=== PATIENT | female | born 1965 | race Hispanic/Latino ===

== ENCOUNTER 2019-06-21 16:15 | Inpatient (IN) | payer SELFPAY ==
--- NOTE | 2019-06-21 16:59 | XRay Report ---
CHEST 2 VIEWS INDICATION / CLINICAL INFORMATION: Dyspnea. COMPARISON: None available. FINDINGS: SUPPORT DEVICES: None. HEART / MEDIASTINUM: No significant abnormality. LUNGS / PLEURA: There is moderate bibasilar lung consolidation most consistent with pneumonia. There may be a trace right effusion. Upper lungs are clear. No edema is seen. No pneumothorax. ADDITIONAL FINDINGS: There are healed left-sided rib fractures. IMPRESSION: 1. Moderate bibasilar lung consolidation. Signer Name: Edwardo Montero MD Signed: 06/21/2019 4:54 PM Workstation Name: [id number]
[2019-06-21 17:51] LABS: Basophils % (Auto) 0.4 % (0.0-1.8); Eosinophils # (Auto) 0.1 K/mm3 (0.0-0.4); Eosinophils % (Auto) 1.4 % (0.0-4.3); Hematocrit 39.2 % (30.3-42.9); Lymphocytes # (Auto) 0.7 K/mm3 (1.2-5.4); Lymphocytes % (Auto) 13.1 % (13.4-35.0); Mean Corpuscular HGB Conc 33 % (30-34); Mean Corpuscular Volume 87 fl (79-97); Monocytes # (Auto) 0.4 K/mm3 (0.0-0.8); Monocytes % (Auto) 7.4 % (0.0-7.3); Platelet Count 159 K/mm3 (140-440); Red Blood Count 4.52 M/mm3 (3.65-5.03); Red Cell Distribution Width 13.9 % (13.2-15.2)
[2019-06-21 18:05] LABS: BUN/Creatinine Ratio 10; Blood Urea Nitrogen 24 mg/dL (7-17); Calcium 8.7 mg/dL (8.4-10.2); Hemolysis Index 6
--- NOTE | 2019-06-21 20:21 | Emergency Department Report ---
ED General Adult HPI - General Chief complaint: Dyspnea/Respdistress Stated complaint: SOB/DIZZY Time Seen by Provider: 06/21/19 20:19 Source: patient, RN notes reviewed Mode of arrival: Ambulatory Limitations: No Limitations - History of Present Illness Initial comments: This is a 54-year-old female. This patient does not known to this provider previously. She reports that she typically follows at [facility]. Triage documents history of congestive heart failure, hepatitis C and COPD. Patient does not know her ejection fraction. She does not know the details of her other past medical history. Presents to the ER today with the complaints of shortness of breath, chest wall pain with coughing, malaise, fatigue, mucus production. Symptoms present for 2 days. They're intermittent. They worse with physical exertion, coughing, breathing, and decreased with rest. The patient denies DVT, pulmonary embolism risk factors. -: Gradual Location: chest Radiation: non-radiation Consistency: intermittent Improves with: other Worsens with: other Associated Symptoms: shortness of breath - Related Data Allergies Allergy/AdvReac Type Severity Reaction Status Date / Time No Known Allergies Allergy Verified 06/21/19 16:18 ED Review of Systems ROS: Stated complaint: SOB/DIZZY Other details as noted in HPI Constitutional: malaise, weakness Eyes: denies: eye discharge ENT: congestion Respiratory: cough, shortness of breath, SOB with exertion, SOB at rest, wheezing Cardiovascular: chest pain Gastrointestinal: denies: vomiting Genitourinary: denies: dysuria Musculoskeletal: myalgia Skin: denies: lesions Neurological: weakness Psychiatric: anxiety ED Past Medical Hx - Past Medical History Previous Medical History?: Yes Hx Congestive Heart Failure: Yes Additional medical history: hep c copd - Surgical History Past Surgical History?: No - Social History Smoking Status: Current Every Day Smoker Substance Use Type: None ED Physical Exam - General Limitations: No Limitations General appearance: alert, anxious - Head Head exam: Present: atraumatic, normocephalic - Eye Eye exam: Present: normal appearance, EOMI. Absent: nystagmus - ENT ENT exam: Present: normal exam, normal orophraynx, mucous membranes moist, normal external ear exam - Neck Neck exam: Present: normal inspection, full ROM. Absent: tenderness, meningismus - Respiratory Respiratory exam: Present: rhonchi. Absent: respiratory distress - Cardiovascular Cardiovascular Exam: Present: regular rate, normal rhythm, systolic murmur. Absent: bradycardia, tachycardia, irregular rhythm, diastolic murmur, rubs, gallop - GI/Abdominal GI/Abdominal exam: Present: soft. Absent: distended, tenderness, guarding, rebound, rigid, pulsatile mass - Extremities Exam Extremities exam: Present: normal inspection, full ROM, other (2+ pulses noted in the bilateral upper, lower extremities. There is no long bone tenderness. Musculoskeletal compartments are soft. The pelvis is stable.). Absent: pedal edema, joint swelling, calf tenderness - Back Exam Back exam: Present: normal inspection, full ROM. Absent: tenderness, CVA tenderness (R), CVA tenderness (L), paraspinal tenderness, vertebral tenderness - Neurological Exam Neurological exam: Present: alert, other (there is no facial droop. The tongue is midline. Extraocular movements are intact bilaterally. Patient speaking in full complete sentences. Shoulder shrug is intact bilaterally. Hearing is grossly intact bilaterally. Visual acuity intact to finger counting and color perception at a close distance. 5/5 strength 4 extremities. Sensation intact to light touch in 4 extremities.). Absent: motor sensory deficit - Psychiatric Psychiatric exam: Present: anxious - Skin Skin exam: Present: warm, dry, intact, normal color. Absent: rash ED Course Vital Signs 06/21/19 06/21/19 06/21/19 16:23 20:20 20:29 Temperature 99.4 F 98.7 F Pulse Rate 94 H 75 74 Respiratory 22 22 23 Rate Blood Pressure 197/106 Blood Pressure 183/102 [Left] O2 Sat by Pulse 93 93 94 Oximetry 06/21/19 06/21/19 06/21/19 20:30 21:00 21:30 Temperature Pulse Rate 77 67 Respiratory 23 19 23 Rate Blood Pressure 183/102 183/102 183/102 Blood Pressure [Left] O2 Sat by Pulse 91 89 90 Oximetry 06/21/19 06/21/19 21:46 22:00 Temperature Pulse Rate Respiratory Rate Blood Pressure 177/102 178/101 Blood Pressure [Left] O2 Sat by Pulse 93 98 Oximetry ED Medical Decision Making - Lab Data Result diagrams: 06/21/19 17:30 06/21/19 17:30 Vital Signs 06/21/19 16:23 Temperature 99.4 F Pulse Rate 94 H Respiratory 22 Rate Blood Pressure 197/106 O2 Sat by Pulse 93 Oximetry Lab Results 06/21/19 06/21/19 06/21/19 Range/Units 17:30 17:30 17:30 WBC 5.3 (4.5-11.0) K/mm3 RBC 4.52 (3.65-5.03) M/mm3 Hgb 13.0 (10.1-14.3) gm/dl Hct 39.2 (30.3-42.9) % MCV 87 (79-97) fl MCH 29 (28-32) pg MCHC 33 (30-34) % RDW 13.9 (13.2-15.2) % Plt Count 159 (140-440) K/mm3 Lymph % (Auto) 13.1 L (13.4-35.0) % [place] % (Auto) 7.4 H (0.0-7.3) % Eos % (Auto) 1.4 (0.0-4.3) % Baso % (Auto) 0.4 (0.0-1.8) % Lymph # 0.7 L (1.2-5.4) K/mm3 [place] # 0.4 (0.0-0.8) K/mm3 Eos # 0.1 (0.0-0.4) K/mm3 Baso # 0.0 (0.0-0.1) K/mm3 Seg Neutrophils % 77.7 H (40.0-70.0) % Seg Neutrophils # 4.1 (1.8-7.7) K/mm3 Sodium 139 (137-145) mmol/L Potassium 4.6 (3.6-5.0) mmol/L Chloride 102.7 (98-107) mmol/L Carbon Dioxide 23 (22-30) mmol/L Anion Gap 18 mmol/L BUN 24 H (7-17) mg/dL Creatinine 2.5 H (0.7-1.2) mg/dL Estimated GFR 20 ml/min BUN/Creatinine Ratio 10 % Glucose 115 H (65-100) mg/dL Calcium 8.7 (8.4-10.2) mg/dL Troponin T < 0.010 (0.00-0.029) ng/mL NT-Pro-B Natriuret Pep 10374 H (0-900) pg/mL - EKG Data 06/21/19 22:17 There is no prior EKG available for comparison. The EKG is a sinus rhythm, with a normal axis, QTC 482 ms, TX interval within normal limits, there is left ventricular hypertrophy, there is poor R progression, there is no prior for comparison, the EKG is abnormal, the EKG is not consistent with ST elevation myocardial infarction. - Radiology Data Radiology results: report reviewed, image reviewed Print Report Referring Physician: GABE GARCIA Patient Name: HILDA CARBALLO Date of : 1965 Sex: Female Report Date: 2019-06-21 Report Status: Finalized Findings [facility] [address] [place] [address] XRay Report Signed Patient: HILDA CARBALLO MR#: [id number] : 1965 Acct:[id number] Age/Sex: 54 / F ADM Date: 06/21/19 Loc: ED Attending Dr: Ordering Physician: GABE GARCIA MD Date of Service: 06/21/19 Procedure(s): XR chest routine 2V Accession Number(s): [id number] cc: GABE GARCIA MD Fluoro Time In Minutes: CHEST 2 VIEWS INDICATION / CLINICAL INFORMATION: Dyspnea. COMPARISON: None available. FINDINGS: SUPPORT DEVICES: None. HEART / MEDIASTINUM: No significant abnormality. LUNGS / PLEURA: There is moderate bibasilar lung consolidation most consistent with pneumonia. There may be a trace right effusion. Upper lungs are clear. No edema is seen. No pneumothorax. ADDITIONAL FINDINGS: There are healed left-sided rib fractures. IMPRESSION: 1. Moderate bibasilar lung consolidation. Signer Name: Edwardo Montero MD Signed: 06/21/2019 4:54 PM Workstation Name: [id number] Transcribed By: GEORGE Dictated By: Edwardo Montero MD Electronically Authenticated By: Edwardo Montero MD Signed Date/Time: 06/21/19 7779 - Medical Decision Making Differential diagnosis, including but not limited to: Pneumonia, bronchitis, costochondritis, acute coronary syndrome, renal insufficiency, cardiorenal syndrome Assessment and plan: 54-year-old female with probable pneumonia, found to have renal insufficiency, clinically does not appear to be fluid overloaded, elevated BNP is likely secondary to progressive pneumonia. Also has a low-grade temperature. We have recommended admission to the hospital for IV fluids, antibiotics and medication optimization. Discussed with the patient who verbalizes understanding and is amenable to hospitalization. Hospital physician, Dr. Valderrama to admit the patient to the medical service. Critical care attestation.: If time is entered above; I have spent that time in minutes in the direct care of this critically ill patient, excluding procedure time. ED Disposition Clinical Impression: Pneumonia, Renal insufficiency Disposition: OP ADMIT IP TO THIS HOSP Is pt being admited?: Yes Does the pt Need Aspirin: Yes Condition: Stable Instructions: Bacterial Pneumonia (ED)
[2019-06-21] MEDS ORDERED: PROVENTIL IH ONE (20:29)
[2019-06-21] MEDS ORDERED: ROCEPHIN/NS 1 GM/50 ML 1 GM/50 ML BAG IV ONE (20:29)
[2019-06-21] MEDS ORDERED: NACL 0.9% 1000 ML 500 ML IV ONE (20:29)
[2019-06-21] MEDS ORDERED: TYLENOL PO ONE (20:29)
[2019-06-21] MEDS ORDERED: ZITHROMAX PO ONE (20:30)
[2019-06-21] MEDS ORDERED: NORVASC PO ONE (20:31)
[2019-06-21] MEDS ORDERED: BABY ASPIRIN PO ONE (20:31)
[2019-06-21] MEDS ORDERED: ZOFRAN IV PRN (21:36)
[2019-06-21] MEDS ORDERED: SODIUM CHLORIDE FLUSH SYRINGE 10 ML IV PRN (21:36)
[2019-06-21] MEDS ORDERED: TYLENOL PO PRN (21:36)
--- NOTE | 2019-06-21 21:45 | History and Physical Report ---
History of Present Illness Date of examination: 06/21/19 History of present illness: 54-year-old woman with a history of CHF, COPD, hepatitis C, hypertension comes emergency room with complaints of shortness of breath, cough productive of yellow phlegm, chills 2 days. Stated that her chest. Only when she coughs. She states she is not on any diuretic because she does not need one. Denies history of kidney problems Review Of Systems: Constitutional: no weight loss, fever, chills Ears, eyes, nose, mouth and throat: no nasal congestion, no nasal discharge, no sinus pressure, blurry vision, diplopia Neck: No neck pain or rigidity. Cardiovascular: No palpitations, chest pain Respiratory: + shortness of breath, cough Gastrointestinal: No hematochezia, abdominal pain Genitourinary : no dysuria, frequency , hematuria Musculoskeletal: no muscle ache , joint pain Integumentary: no rash, no pruritis Neurological: no parathesias, focal weakness Endocrine: no cold or heat intolerance, no polyuria or polydipsia Hematologic/Lymphatic: no easy bruising, no easy bleeding, no gland swelling Allergic/Immunologic: no urticaria, no angioedema. PAST MEDICAL HISTORY:CHF, COPD, hepatitis C, hypertension PAST SURGICAL HISTORY:none FAMILY HISTORY:hypertension, diabetes SOCIAL HISTORY: Denies tobacco, drugs, alcohol Medications and Allergies Allergies Allergy/AdvReac Type Severity Reaction Status Date / Time No Known Allergies Allergy Verified 06/21/19 16:18 Active Meds: Active Medications Acetaminophen (Tylenol) 650 mg PO Q4H PRN PRN Reason: Pain MILD(1-3)/Fever >100.5/[place] Albuterol/Ipratropium (Duoneb *Not For Prn Use*) 1 ampul IH Q6HRT [facility] Enoxaparin Sodium (Lovenox) 30 mg SUB-Q QDAY [facility] Sodium Chloride (Nacl 0.45% 1000 Ml) 1,000 mls @ 50 mls/hr IV DIRECT [facility] Levofloxacin/Dextrose (Levaquin 750mg/150ml) 750 mg in 150 mls @ 100 mls/hr IV Q24HR [facility]; Protocol Ondansetron HCl (Zofran) 4 mg IV Q8H PRN PRN Reason: Nausea And Vomiting Sodium Chloride (Sodium Chloride Flush Syringe 10 Ml) 10 ml IV BID [facility] Sodium Chloride (Sodium Chloride Flush Syringe 10 Ml) 10 ml IV PRN PRN PRN Reason: LINE FLUSH Exam - Physical Exam Narrative exam: General Apperance: The patient sitting in bed no acute distress HEENT: Normocephalic, atraumatic. Pupils equally round and reactive to light, extraocular movement intact, and no sclericterus or JVD or thyromegaly or nodule. Neck supple, no carotid bruit, mucous membranes moist, no exudate or erythema Heart: S1-S2, regular is rhythm Lungs: Crackles at bases bilaterally, breathing comfortable Abdomen: Positive bowel sounds, soft, nontender, nondistended, no organomegaly Extremities: No edema cyanosis clubbing Skin: no rash, nodule, warm and dry Neuro:CN 2 -12 intact, motor/sensory intact, speech is fluent - Constitutional Vitals: Temp Pulse Resp BP Pulse Ox 98.7 F 67 23 183/102 90 06/21/19 20:20 06/21/19 21:00 06/21/19 21:30 06/21/19 21:30 06/21/19 21:30 Results - Labs CBC & Chem 7: 06/21/19 17:30 06/21/19 17:30 Labs: Abnormal lab results 06/21/19 06/21/19 06/21/19 Range/Units 17:30 17:30 17:30 Lymph % (Auto) 13.1 L (13.4-35.0) % [place] % (Auto) 7.4 H (0.0-7.3) % Lymph # 0.7 L (1.2-5.4) K/mm3 Seg Neutrophils % 77.7 H (40.0-70.0) % BUN 24 H (7-17) mg/dL Creatinine 2.5 H (0.7-1.2) mg/dL Glucose 115 H (65-100) mg/dL NT-Pro-B Natriuret Pep 67160 H (0-900) pg/mL - Imaging and Cardiology EKG: image reviewed Chest x-ray: report reviewed Assessment and Plan Assessment Community-acquired pneumonia Acute renal insufficiency Hypertension, uncontrolled CHF, stable COPD hepatitis C Plan Admit to medicine Start IV antibiotic, nebulizer treatments Start gentle IV fluid, monitor kidney function Continue appropriate outpatient medications IV hydralazine as needed for blood pressure control DVT prophylaxis, ultrasound of the kidneys
[2019-06-21] MEDS ORDERED: APRESOLINE IV PRN (21:47)
[2019-06-21 22:13] LABS: INR 0.95 (0.87-1.13)
[2019-06-22] MEDS: NACL 0.45% 1000 ML 1,000 ML IV SCH ×2 (00:17→11:28)
[2019-06-22] MEDS: SODIUM CHLORIDE FLUSH SYRINGE 10 ML IV SCH ×2 (00:28→23:18)
[2019-06-22 00:50] LABS: Creatinine,Urine 94.9 mg/dL (0.1-20.0)
[2019-06-22 00:51] LABS: Bilirubin,Urine NEG (Negative); Blood,Urine LG (Negative); Color,Urine Yellow (Yellow); Urobilinogen,Urine < 2.0 mg/dL (<2.0)
[2019-06-22 01:00] LABS: Protein,Urine >500 mg/dL (Negative); WBC,Urine > 182.0 /HPF (0.0-6.0)
[2019-06-22] MEDS: DUONEB *Not for PRN Use IH SCH ×4 (01:46→21:50)
[2019-06-22] MEDS: APRESOLINE IV PRN ×2 (05:56→12:37)
[2019-06-22] MEDS ORDERED: LEVAQUIN 750MG/150ML 750 MG/150 ML BAG IV SCH ×2 (10:00)
[2019-06-22] MEDS: LOVENOX SUB-Q SCH (11:29)
--- NOTE | 2019-06-22 11:48 | Ultrasound Report ---
ULTRASOUND RENAL INDICATION / CLINICAL INFORMATION: Acute renal failure. COMPARISON: None available. FINDINGS: RIGHT KIDNEY: Length = 11.0 cm. [normal > 9 cm] - Parenchymal Thickness = 0.7 cm. [normal > 1.5 cm] - Echogenicity: Increased - Hydronephrosis: None. - Cyst or mass: No significant abnormality. - Stones: A few scattered calyceal stones measuring up to 3 mm are identified. LEFT KIDNEY: Length = 10.5 cm. [normal > 9 cm] - Parenchymal Thickness = 0.6 cm. [normal > 1.5 cm] - Echogenicity: Increased - Hydronephrosis: Mild left hydronephrosis - Cyst or mass: No significant abnormality. - Stones: None seen. URINARY BLADDER: No significant abnormality. FREE FLUID: None. ADDITIONAL FINDINGS: None. IMPRESSION: Echogenic kidneys consistent with nonspecific renal parenchymal disease. Small right renal stones, nonobstructing. Mild left hydronephrosis. No obstructing lesion is appreciated. Signer Name: Tevin Pickett Jr, MD Signed: 06/22/2019 11:43 AM Workstation Name: [id number]
[2019-06-22] MEDS ORDERED: COREG PO SCH (16:00)
[2019-06-22] MEDS: APRESOLINE PO SCH ×2 (16:44→23:16)
[2019-06-22] MEDS: NORVASC PO SCH (16:44)
--- NOTE | 2019-06-22 17:34 | Progress Note ---
Assessment and Plan Community-acquired pneumonia Acute renal insufficiency vs SHIVANI on CKD UTI, cont abx Hypertension, uncontrolled CHF, stable COPD, stable hepatitis C Plan Start IV antibiotic, nebulizer treatments Start gentle IV fluid, monitor kidney function Continue appropriate outpatient medications IV hydralazine as needed for blood pressure control, resume home meds and adjust as needed DVT prophylaxis, ultrasound of the kidneys, nephrology consult Subjective Date of service: 06/22/19 Interval history: Patient seen and examined. Medical records and medication list reviewed. No acute event overnight noted by the RN. Patient resting on bed. Patient is tolerating diet. Discussed plan of care at bedside with patient. Objective - Constitutional Vitals: Vital Signs - 12hr 06/22/19 06/22/19 06/22/19 05:56 07:46 12:22 Temperature 99.0 F Pulse Rate 86 Pulse Rate [ 92 H Anterior] Respiratory 20 Rate Respiratory 18 Rate [Anterior] Blood Pressure 199/120 202/112 O2 Sat by Pulse 93 Oximetry 06/22/19 13:50 Temperature Pulse Rate Pulse Rate [ 93 H Anterior] Respiratory Rate Respiratory 18 Rate [Anterior] Blood Pressure O2 Sat by Pulse Oximetry General appearance: Present: no acute distress, well-nourished - EENT Eyes: PERRL, EOM intact ENT: hearing intact, clear oral mucosa Ears: bilateral: normal - Neck Neck: supple, normal ROM - Respiratory Respiratory effort: normal Respiratory: bilateral: CTA - Cardiovascular Rhythm: regular Heart Sounds: Present: S1 & S2. Absent: gallop, rub Extremities: pulses intact, No edema, normal color, Full ROM - Gastrointestinal General gastrointestinal: Present: soft, non-tender, non-distended, normal bowel sounds - Integumentary Integumentary: clear, warm, dry - Musculoskeletal Musculoskeletal: 1, strength equal bilaterally - Neurologic Neurologic: moves all extremities - Psychiatric Psychiatric: memory intact, appropriate mood/affect, intact judgment & insight - Labs CBC & Chem 7: 06/21/19 17:30 06/21/19 17:30 Labs: Abnormal lab results 06/21/19 06/21/19 06/21/19 Range/Units 00:15 00:15 17:30 Lymph % (Auto) 13.1 L (13.4-35.0) % [place] % (Auto) 7.4 H (0.0-7.3) % Lymph # 0.7 L (1.2-5.4) K/mm3 Seg Neutrophils % 77.7 H (40.0-70.0) % BUN (7-17) mg/dL Creatinine (0.7-1.2) mg/dL Glucose (65-100) mg/dL Total Creatine Kinase (30-135) units/L NT-Pro-B Natriuret Pep (0-900) pg/mL Urine WBC (Auto) > 182.0 H (0.0-6.0) /HPF Urine Creatinine 94.9 H (0.1-20.0) mg/dL 06/21/19 06/21/19 06/21/19 Range/Units 17:30 17:30 20:54 Lymph % (Auto) (13.4-35.0) % [place] % (Auto) (0.0-7.3) % Lymph # (1.2-5.4) K/mm3 Seg Neutrophils % (40.0-70.0) % BUN 24 H (7-17) mg/dL Creatinine 2.5 H (0.7-1.2) mg/dL Glucose 115 H (65-100) mg/dL Total Creatine Kinase 147 H (30-135) units/L NT-Pro-B Natriuret Pep 57462 H (0-900) pg/mL Urine WBC (Auto) (0.0-6.0) /HPF Urine Creatinine (0.1-20.0) mg/dL
[2019-06-23] MEDS: DUONEB *Not for PRN Use IH SCH ×2 (03:28→08:16)
[2019-06-23] MEDS: APRESOLINE PO SCH (06:14)
[2019-06-23] MEDS ORDERED: APRESOLINE PO SCH ×2 (09:02→14:00)
[2019-06-23] MEDS ORDERED: COREG PO SCH ×2 (09:02→10:00)
--- NOTE | 2019-06-23 10:23 | Consultation ---
History of Present Illness Consult date: 06/23/19 Consult reason: congestive heart failure History of present illness: This is a 54-year old female who presents with shortness of breath, coughs and wheezing, admitted with pneumonia, UTI and renal insufficiency. Initial labs revealed a creatinine of 2.5. It would be noted that the patients blood pressure has been consistently elevated since her admission with systolic BP ranging 170s-200. Patient is a poor historian but reports she usually receives care at [facility]. There are no records available for review. She denies chest pain, denies pal pitations and there is no lower extremity edema. ECG is sinus rhythm with LVH. No acute ischemic changes. Medications and Allergies Allergies Allergy/AdvReac Type Severity Reaction Status Date / Time No Known Allergies Allergy Verified 06/21/19 16:18 Home Medications Medication Instructions Recorded Confirmed Last Taken Type Aspirin EC [Halfprin EC] 81 mg PO QDAY #30 tablet. 06/23/19 Unknown Rx Carvedilol [Coreg] 12.5 mg PO BID #60 tablet 06/23/19 Unknown Rx amLODIPine [Norvasc] 10 mg PO QDAY #30 tablet 06/23/19 Unknown Rx hydrALAZINE [Apresoline TAB] 100 mg PO Q8HR #90 tab 06/23/19 Unknown Rx levoFLOXacin [Levaquin] 250 mg PO QDAY #5 tablet 06/23/19 Unknown Rx Active Meds: Active Medications Acetaminophen (Tylenol) 650 mg PO Q4H PRN PRN Reason: Pain MILD(1-3)/Fever >100.5/[place] Last Admin: 06/22/19 15:48 Dose: 650 mg Documented by: Albuterol/Ipratropium (Duoneb *Not For Prn Use*) 1 ampul IH Q6HRT [facility] Last Admin: 06/23/19 08:16 Dose: 1 ampul Documented by: Amlodipine Besylate (Norvasc) 10 mg PO QDAY [facility] Last Admin: 06/22/19 16:44 Dose: 10 mg Documented by: Carvedilol (Coreg) 12.5 mg PO BID [facility] Enoxaparin Sodium (Lovenox) 30 mg SUB-Q QDAY [facility] Last Admin: 06/22/19 11:29 Dose: 30 mg Documented by: Hydralazine HCl (Apresoline) 20 mg IV Q6H PRN PRN Reason: Hypertension Last Admin: 06/22/19 12:37 Dose: 20 mg Documented by: Hydralazine HCl (Apresoline) 100 mg PO Q8HR [facility] Sodium Chloride (Nacl 0.45% 1000 Ml) 1,000 mls @ 50 mls/hr IV DIRECT [facility] Last Admin: 06/22/19 11:28 Dose: 50 mls/hr Documented by: Levofloxacin/Dextrose (Levaquin 750mg/150ml) 750 mg in 150 mls @ 100 mls/hr IV Q48HR [facility]; Protocol Last Admin: 06/22/19 11:28 Dose: 100 mls/hr Documented by: Ondansetron HCl (Zofran) 4 mg IV Q8H PRN PRN Reason: Nausea And Vomiting Sodium Chloride (Sodium Chloride Flush Syringe 10 Ml) 10 ml IV BID [facility] Last Admin: 06/22/19 23:18 Dose: 10 ml Documented by: Sodium Chloride (Sodium Chloride Flush Syringe 10 Ml) 10 ml IV PRN PRN PRN Reason: LINE FLUSH Physical Examination Vital Signs Temp Pulse Resp BP Pulse Ox 99.4 F 94 H 22 197/106 93 06/21/19 16:23 06/21/19 16:23 06/21/19 16:23 06/21/19 16:23 06/21/19 16:23 General appearance: no acute distress HEENT: Positive: PERRL Cardiac: Positive: Reg Rate and Rhythm Lungs: Positive: Decreased Breath Sounds, Wheezes Results 06/21/19 17:30 06/21/19 17:30 Assessment and Plan Pneumonia Renal insufficiency UTI Hypertension -uncontrolled
--- NOTE | 2019-06-23 10:36 | Consultation ---
History of Present Illness - Reason for Consult Consult date: 06/23/19 acute renal failure - History of Present Illness The patient is a 54 YO female with history significant for Hypertension, CHF, COPD and Hepatitis C who presented to [facility] ED with complaints of shortness of breath, cough productive of yellow phlegm, chills 2 days. Patient refused to answer most of the questions. Unable to obtain any further history. Creatinine was 2.5 on admission. No prior labs available at this time. Nephrology was consulted for further evaluation. Past History Past Medical History: COPD, heart failure, hepatitis, hypertension Medications and Allergies Allergies Allergy/AdvReac Type Severity Reaction Status Date / Time No Known Allergies Allergy Verified 06/21/19 16:18 Home Medications Medication Instructions Recorded Confirmed Last Taken Type Aspirin EC [Halfprin EC] 81 mg PO QDAY #30 tablet. 06/23/19 Unknown Rx Carvedilol [Coreg] 12.5 mg PO BID #60 tablet 06/23/19 Unknown Rx amLODIPine [Norvasc] 10 mg PO QDAY #30 tablet 06/23/19 Unknown Rx hydrALAZINE [Apresoline TAB] 100 mg PO Q8HR #90 tab 06/23/19 Unknown Rx levoFLOXacin [Levaquin] 250 mg PO QDAY #5 tablet 06/23/19 Unknown Rx Active Meds: Active Medications Acetaminophen (Tylenol) 650 mg PO Q4H PRN PRN Reason: Pain MILD(1-3)/Fever >100.5/[place] Last Admin: 06/22/19 15:48 Dose: 650 mg Documented by: Albuterol/Ipratropium (Duoneb *Not For Prn Use*) 1 ampul IH Q6HRT [facility] Last Admin: 06/23/19 08:16 Dose: 1 ampul Documented by: Amlodipine Besylate (Norvasc) 10 mg PO QDAY [facility] Last Admin: 06/22/19 16:44 Dose: 10 mg Documented by: Carvedilol (Coreg) 12.5 mg PO BID [facility] Enoxaparin Sodium (Lovenox) 30 mg SUB-Q QDAY [facility] Last Admin: 06/22/19 11:29 Dose: 30 mg Documented by: Hydralazine HCl (Apresoline) 20 mg IV Q6H PRN PRN Reason: Hypertension Last Admin: 06/22/19 12:37 Dose: 20 mg Documented by: Hydralazine HCl (Apresoline) 100 mg PO Q8HR [facility] Sodium Chloride (Nacl 0.45% 1000 Ml) 1,000 mls @ 50 mls/hr IV DIRECT [facility] Last Admin: 06/22/19 11:28 Dose: 50 mls/hr Documented by: Levofloxacin/Dextrose (Levaquin 750mg/150ml) 750 mg in 150 mls @ 100 mls/hr IV Q48HR [facility]; Protocol Last Admin: 06/22/19 11:28 Dose: 100 mls/hr Documented by: Ondansetron HCl (Zofran) 4 mg IV Q8H PRN PRN Reason: Nausea And Vomiting Sodium Chloride (Sodium Chloride Flush Syringe 10 Ml) 10 ml IV BID [facility] Last Admin: 06/22/19 23:18 Dose: 10 ml Documented by: Sodium Chloride (Sodium Chloride Flush Syringe 10 Ml) 10 ml IV PRN PRN PRN Reason: LINE FLUSH Review of Systems ROS unobtainable: due to mental status (patient refused to answer) Exam - Vital Signs Vital signs: Vital Signs Temp Pulse Resp BP Pulse Ox 99.4 F 94 H 22 197/106 93 06/21/19 16:23 06/21/19 16:23 06/21/19 16:23 06/21/19 16:23 06/21/19 16:23 - General Appearance General appearance: well-developed, well-nourished, appears stated age, other (no distress) EENT: ATNC, PERRL, mucous membranes moist, hearing intact, vision intact Neck: Present: neck supple, trachea midline Respiratory: Clear to Ascultation Heart: regular, S1S2, no murmurs Gastrointestinal: Present: normoactive bowel sounds. Absent: tenderness, distended Integumentary: no rash, warm and dry Neurologic: no focal deficit, no asterixis, alert and oriented x3 Musculoskeletal: Present: other (no edema) Results - Lab Results 06/21/19 17:30 06/21/19 17:30 Most recent lab results Calcium 8.7 mg/dL (8.4-10.2) 06/21/19 17:30 Magnesium 2.20 mg/dL (1.7-2.3) 06/21/19 20:54 94.9 mg/dL (0.1-20.0) H 06/21/19 00:15 72 mmol/L 06/21/19 00:15 Assessment and Plan 1. Acute kidney injury / CKD: Patient presented with elevated creatinine level and no prior labs available. Patient refusing tests. Monitor renal function. Avoid nephrotoxic agents. Meds dosage based on GFR. 2. Uncontrolled HTN: Monitor BP. 3. Community-acquired pneumonia. 4. UTI. 5. CHF: Compensated. 6. COPD. 7. Hepatitis C.
--- NOTE | 2019-06-23 11:13 | Discharge Summary ---
Providers - Providers Date of Admission: 06/21/19 21:36 Date of discharge: 06/23/19 Attending physician: MORENA WHITEHEAD 06/23/19 09:03 Consult to Physician [CONS] Routine Comment: Consulting Provider: LESVIA MENCHACA Physician Instructions: Reason For Exam: CHF Consult to Physician [CONS] Routine Comment: Consulting Provider: RENE PATEL Physician Instructions: Reason For Exam: SHIVANI on CKD ? Primary care physician: [employer] Hospitalization Condition: Stable Pertinent studies: CXR Renal US Hospital course: Discharge diagnosis: Community-acquired pneumonia Acute renal insufficiency vs SHIVANI on CKD UTI, cont abx Hypertension, uncontrolled CHF, stable COPD, stable hepatitis C Disposition: - TO HOME OR SELFCARE Time spent for discharge: 34 minutes Core Measure Documentation - Palliative Care Palliative Care/ Comfort Measures: Not Applicable - Core Measures Any of the following diagnoses?: none Exam - Constitutional Vitals: Temp Pulse Resp BP Pulse Ox 99.3 F 81 18 176/93 96 06/23/19 05:09 06/23/19 08:18 06/23/19 08:18 06/23/19 06:14 06/23/19 08:16 Plan Activity: advance as tolerated Weight Bearing Status: Weight Bear as Tolerated Diet: renal Additional Instructions: repeat BMP in one week Follow up with: SHORTY MYERS MD [Primary Care Provider] - 3-5 Days RENE PATEL MD [Staff Physician] - 7 Days Prescriptions: hydrALAZINE [Apresoline TAB] 100 mg PO Q8HR #90 tab Carvedilol [Coreg] 12.5 mg PO BID #60 tablet Aspirin EC [Halfprin EC] 81 mg PO QDAY #30 tablet. levoFLOXacin [Levaquin] 250 mg PO QDAY #5 tablet amLODIPine [Norvasc] 10 mg PO QDAY #30 tablet
[2019-06-23 11:21] VITALS: BP 153/84
[2019-06-23] MEDS: SODIUM CHLORIDE FLUSH SYRINGE 10 ML IV SCH (12:36)
[2019-06-23] MEDS: LOVENOX SUB-Q SCH (12:38)
[2019-06-23] MEDS: NORVASC PO SCH (12:38)
== END 2019-06-23 13:00 | disposition home or self-care (01) | DRG 682 ==
LOC: ED 16:15 → 3A 21:36
PROVIDERS: ADMIT Internal Medicine; ATTEND Internal Medicine
DX: N17.9 Acute kidney failure, unspecified (principal); J18.9 Pneumonia, unspecified organism; N39.0 Urinary tract infection, site not specified; I13.0 Hypertensive heart and chronic kidney disease with heart failure and stage 1 through stage 4 chronic kidney disease, or unspecified chronic kidney disease; N18.9 Chronic kidney disease, unspecified; I50.9 Heart failure, unspecified; J44.9 Chronic obstructive pulmonary disease, unspecified; F17.200 Nicotine dependence, unspecified, uncomplicated; B19.20 Unspecified viral hepatitis C without hepatic coma; Z79.82 Long term (current) use of aspirin; Z79.899 Other long term (current) drug therapy; Z82.49 Family history of ischemic heart disease and other diseases of the circulatory system; Z83.3 Family history of diabetes mellitus
CPT/HCPCS: 36415; 71046; 76770; 80048; 81001; 82140; 82550; 82570; 83735; 83880; 84300; 84443; 84484; 85025; 85610; 87040; 87086; 93005; 93010; 94640; 94760; 96361; 96365; G0378; J0360; J0696; J1650; J1956; J7030

== ENCOUNTER 2019-12-30 06:20 | Emergency (ER) | payer SELFPAY ==
[2019-12-30 06:35] VITALS: BP 138/81
== END 2019-12-30 06:30 | disposition left against medical advice (07) ==
LOC: ED 06:20
DX: R11.2 Nausea with vomiting, unspecified (principal); Z53.21 Procedure and treatment not carried out due to patient leaving prior to being seen by health care provider

== ENCOUNTER 2020-02-11 12:12 | Inpatient (IN) | payer SELFPAY ==
[2020-02-11] MEDS ORDERED: ASPIRIN 325 MG TAB PO ONE (12:20)
--- NOTE | 2020-02-11 12:38 | Emergency Department Report ---
ED Chest Pain HPI - General Chief Complaint: Chest Pain Stated Complaint: CHEST PAIN, KATHERIN Time Seen by Provider: 02/11/20 12:35 Source: patient, EMS Mode of arrival: Wheelchair Limitations: No Limitations - History of Present Illness Initial Comments: This is a 54-year old female who persistently would like to attribute her current problems because she started back smoking 1 week ago. She is not wheezing nor acutely dyspneic. She tells me that she has had left-sided chest pain and left flank pain since yesterday. She states that she has been coughing for a week but denies hemoptysis. She gives very short answers and is very reticent to provide detailed. However, as far as I can determine the chest pain is nonpleuritic. She states that it hurts when you touch her anterior chest. She denies fever or chills. Patient states that she does not have a primary care doctor. However she denies noncompliance with her medication. She states that she has to pay alcantar to have her medications renewed. 2019 discharge summary: Hospital course: 54-year-old woman with a history of hypertension, presents with several days of shortness of breath and cough. In the emergency room, her systolic blood pressure was uncontrolled at greater than 190. Chest x-ray revealed mild cardiomegaly, modertaedbibasilar lung consolidation. BNP level was markedly elevated at 27,000. Other laboratory values include chronic kidney disease with a creatinine of 2.5. EKG was normal sinus rhythm, left ventricular hypertrophy but no acute ST or T-wave of months. She was started on abx, recommended to have 2decho. But she was refusing labwork and refusing further testing. She was then discharged home with abx for CAP and recommended to f/u outpt with office clinician. Discharge diagnosis: Community-acquired pneumonia Acute renal insufficiency vs SHIVANI on CKD UTI, cont abx Hypertension, uncontrolled CHF, stable COPD, stable hepatitis C Complaint: chest pain -: Sudden (States fairly acute onset last night), hour(s) Pain Location: left chest Pain Radiation: other (Also complains of left back pain/flank) Severity: moderate Quality: other (Would not describe) Consistency: constant Worsens With: nothing re: dyspnea. denies: nausea, vomting, diaphoresis, sense of impending doom Other Symptoms: cough. denies: fever, syncope, rash, acid taste in mouth, leg swelling Treatments Prior to Arrival: none Aspirin use within the Past 7 Days: (0) No - Related Data Home Medications Medication Instructions Recorded Confirmed Last Taken AtorvaSTATin 40 mg PO DAILY 02/11/20 02/11/20 Unknown Lasix TAB 40 mg PO DAILY 02/11/20 02/11/20 Unknown Lisinopril 2.5 mg PO DAILY 02/11/20 02/11/20 Unknown amLODIPine 5 mg PO QDAY 02/11/20 02/11/20 Unknown Previous Rx's Medication Instructions Recorded Last Taken Type Aspirin EC [Halfprin EC] 81 mg PO QDAY #30 tablet. 06/23/19 Unknown Rx carvediloL [Coreg] 12.5 mg PO BID #60 tablet 06/23/19 Unknown Rx hydrALAZINE [Apresoline TAB] 100 mg PO Q8HR #90 tab 06/23/19 Unknown Rx Allergies Allergy/AdvReac Type Severity Reaction Status Date / Time No Known Allergies Allergy Verified 06/21/19 16:18 Heart Score - HEART Score History: Slightly suspicious EKG: Non-specific Age: 45-65 Risk factors: 1-2 risk factors Troponin: < normal limit HEART Score: 3 - Critical Actions Critical Actions: 0-3 pts:0.9-1.7%risk of adverse cardiac event.Candidate for discharge ED Review of Systems ROS: Stated complaint: CHEST PAIN, KATHERIN Other details as noted in HPI Constitutional: denies: chills, fever Eyes: denies: eye pain, eye discharge, vision change ENT: denies: ear pain, throat pain Respiratory: cough, shortness of breath. denies: wheezing Cardiovascular: chest pain. denies: palpitations Endocrine: no symptoms reported Gastrointestinal: denies: abdominal pain, nausea, diarrhea Genitourinary: denies: urgency, dysuria, discharge Musculoskeletal: denies: back pain, arthralgia Skin: denies: rash, lesions Neurological: denies: headache, weakness, paresthesias Psychiatric: denies: anxiety, depression Hematological/Lymphatic: denies: easy bleeding, easy bruising ED Past Medical Hx - Past Medical History Previous Medical History?: Yes Hx Congestive Heart Failure: Yes Hx Diabetes: No Hx Asthma: No Hx COPD: Yes Additional medical history: hep c copd - Surgical History Past Surgical History?: Yes Additional Surgical History: kidney stones - Social History Smoking Status: Current Every Day Smoker Substance Use Type: Prescribed - Medications Home Medications: Home Medications Medication Instructions Recorded Confirmed Last Taken Type Aspirin EC [Halfprin EC] 81 mg PO QDAY #30 tablet. 06/23/19 02/11/20 Unknown Rx carvediloL [Coreg] 12.5 mg PO BID #60 tablet 06/23/19 02/11/20 Unknown Rx hydrALAZINE [Apresoline TAB] 100 mg PO Q8HR #90 tab 06/23/19 02/11/20 Unknown Rx AtorvaSTATin 40 mg PO DAILY 02/11/20 02/11/20 Unknown History Lasix TAB 40 mg PO DAILY 02/11/20 02/11/20 Unknown History Lisinopril 2.5 mg PO DAILY 02/11/20 02/11/20 Unknown History amLODIPine 5 mg PO QDAY 02/11/20 02/11/20 Unknown History ED Physical Exam - General Limitations: No Limitations General appearance: alert, in no apparent distress, other (Somewhat pale) - Head Head exam: Present: atraumatic, normocephalic - Eye Eye exam: Present: normal appearance. Absent: scleral icterus - ENT ENT exam: Present: mucous membranes moist - Neck Neck exam: Present: normal inspection. Absent: tenderness, meningismus - Respiratory Respiratory exam: Present: normal lung sounds bilaterally, chest wall tenderness. Absent: respiratory distress - Cardiovascular Cardiovascular Exam: Present: regular rate, normal rhythm. Absent: systolic murmur, diastolic murmur, rubs, gallop - GI/Abdominal GI/Abdominal exam: Present: soft, normal bowel sounds. Absent: distended, tenderness, guarding, rebound - Extremities Exam Extremities exam: Present: normal inspection, full ROM. Absent: tenderness, pedal edema, joint swelling, calf tenderness - Back Exam Back exam: Present: normal inspection - Neurological Exam Neurological exam: Present: alert, oriented X3 - Psychiatric Psychiatric exam: Present: normal affect, normal mood - Skin Skin exam: Present: warm, dry, intact, normal color. Absent: rash ED Course Vital Signs 02/11/20 12:16 Temperature 98.3 F Pulse Rate 64 Respiratory 18 Rate Blood Pressure 106/59 O2 Sat by Pulse 93 Oximetry - Reevaluation(s) Reevaluation #1: Patient is found to have a new left pleural effusion, acute renal injury. A CT of her chest abdomen and pelvis without contrast is pending. A VQ scan will be pending. Patient meets criteria for inpatient admission and further evaluation. 02/11/20 13:40 02/11/20 15:[address] reports. V/Q is pending. D-dimer is quite elevated. I have discussed with Dr. Guerin. We will admit to telemetry. Dr. Guerin is aware to follow-up on pending results. ELZBIETA score - Elzbieta Score Age > 65: (0) No Aspirin use within the Past 7 Days: (0) No 3 or more CAD Risk Factors: (0) No 2 or more Angina events in past 24 hrs: (0) No Known CAD with more than 50% Stenosis: (0) No Elevated Cardiac Markers: (0) No ST Deviation Greater than 0.5mm: (0) No ELZBIETA Score: 0 ED Medical Decision Making - Lab Data Result diagrams: 02/11/20 12:55 02/11/20 12:55 Laboratory Results - last 24 hr 02/11/20 12:55 WBC 5.0 RBC 3.28 L Hgb 9.4 L Hct 28.8 L MCV 88 MCH 29 MCHC 33 RDW 14.5 Plt Count 146 Lymph % (Auto) 12.7 L [place] % (Auto) 10.4 H Eos % (Auto) 0.6 Baso % (Auto) 0.5 Lymph # 0.6 L [place] # 0.5 Eos # 0.0 Baso # 0.0 Seg Neutrophils % 75.8 H Seg Neutrophils # 3.8 Laboratory Results - last 24 hr 02/11/20 02/11/20 02/11/20 12:55 12:55 12:55 WBC 5.0 RBC 3.28 L Hgb 9.4 L Hct 28.8 L MCV 88 MCH 29 MCHC 33 RDW 14.5 Plt Count 146 Lymph % (Auto) 12.7 L [place] % (Auto) 10.4 H Eos % (Auto) 0.6 Baso % (Auto) 0.5 Lymph # 0.6 L [place] # 0.5 Eos # 0.0 Baso # 0.0 Seg Neutrophils % 75.8 H Seg Neutrophils # 3.8 PT 14.9 INR 1.15 H APTT 24.7 Sodium 135 L Potassium 4.5 Chloride 101.3 Carbon Dioxide 19 L Anion Gap 19 BUN 71 H Creatinine 4.8 H Estimated GFR 9 BUN/Creatinine Ratio 15 Glucose 116 H Lactic Acid Calcium 7.7 L Total Creatine Kinase CK-MB (CK-2) CK-MB (CK-2) Rel Index 02/11/20 02/11/20 12:55 12:55 WBC RBC Hgb Hct MCV MCH MCHC RDW Plt Count Lymph % (Auto) Marathon % (Auto) Eos % (Auto) Baso % (Auto) Lymph # Marathon # Eos # Baso # Seg Neutrophils % Seg Neutrophils # PT INR APTT Sodium Potassium Chloride Carbon Dioxide Anion Gap BUN Creatinine Estimated GFR BUN/Creatinine Ratio Glucose Lactic Acid 0.60 L Calcium Total Creatine Kinase 66 CK-MB (CK-2) 1.0 CK-MB (CK-2) Rel Index 1.5 - EKG Data -: EKG Interpreted by Me EKG shows normal: sinus rhythm, axis, intervals, QRS complexes (High voltage), ST-T waves Rate: normal - EKG Data Interpretation: LVH (Consistent with LVH, left axis deviation, left atrial abnormality, associated changes.) - Radiology Data Radiology results: report reviewed New left pleural effusion, cardiomegaly Critical care attestation.: If time is entered above; I have spent that time in minutes in the direct care of this critically ill patient, excluding procedure time. ED Disposition Clinical Impression: Acute kidney injury, Pleural effusion, left Acute on chronic renal failure Qualifiers: Acute renal failure type: unspecified Chronic kidney disease stage: stage 4 (severe) Qualified Code(s): N17.9 - Acute kidney failure, unspecified; N18.4 - Chronic kidney disease, stage 4 (severe) Cardiomyopathy Qualifiers: Cardiomyopathy type: unspecified Qualified Code(s): I42.9 - Cardiomyopathy, unspecified Chest pain Qualifiers: Chest pain type: unspecified Qualified Code(s): R07.9 - Chest pain, unspecified Anemia Qualifiers: Anemia type: other cause Other causes of anemia: other cause, not classified Qualified Code(s): D64.89 - Other specified anemias Disposition: OP ADMIT IP TO THIS HOSP Is pt being admited?: Yes Does the pt Need Aspirin: Yes Condition: Stable Instructions: Chest Pain (ED) Time of Disposition: 15:12
--- NOTE | 2020-02-11 12:54 | XRay Report ---
CHEST 2 VIEWS INDICATION / CLINICAL INFORMATION: Chest Pain. COMPARISON: Chest x-ray 06/21/2019 FINDINGS: SUPPORT DEVICES: None. HEART / MEDIASTINUM: Remains enlarged. LUNGS / PLEURA: New moderate left pleural effusion. No pneumothorax. ADDITIONAL FINDINGS: Old healed left rib fracture deformities, unchanged IMPRESSION: 1. Cardiomegaly with new moderate left pleural effusion Signer Name: Enrike Lockett MD Signed: 02/11/2020 12:50 PM Workstation Name: [id number]
[2020-02-11 13:11] LABS: Basophils % (Auto) 0.5 % (0.0-1.8); Eosinophils % (Auto) 0.6 % (0.0-4.3); Hematocrit 28.8 % (30.3-42.9); Hemoglobin 9.4 gm/dl (10.1-14.3); Lymphocytes # (Auto) 0.6 K/mm3 (1.2-5.4); Lymphocytes % (Auto) 12.7 % (13.4-35.0); Mean Corpuscular HGB Conc 33 % (30-34); Mean Corpuscular Volume 88 fl (79-97); Monocytes # (Auto) 0.5 K/mm3 (0.0-0.8); Monocytes % (Auto) 10.4 % (0.0-7.3); Platelet Count 146 K/mm3 (140-440); Red Blood Count 3.28 M/mm3 (3.65-5.03); Red Cell Distribution Width 14.5 % (13.2-15.2)
[2020-02-11 13:25] LABS: INR 1.15 (0.87-1.13)
[2020-02-11 13:26] LABS: Partial Thromboplastin Time 24.7 Sec. (24.2-36.6)
[2020-02-11 13:30] LABS: Calcium 7.7 mg/dL (8.4-10.2)
[2020-02-11 13:33] LABS: Alanine Aminotransferase 28 units/L (7-56); Albumin 2.7 g/dL (3.9-5)
[2020-02-11 13:41] LABS: Bilirubin,Direct < 0.2 mg/dL (0-0.2)
--- NOTE | 2020-02-11 15:12 | Cat Scan Report ---
CT chest wo con, CT abdomen pelvis wo con INDICATION / CLINICAL INFORMATION: MAIN: peural effusion, cp x1day. TECHNIQUE: All CT scans at this location are performed using CT dose reduction for ALARA by means of automated e xposure control. COMPARISON: None available. FINDINGS: Chest: Heart is enlarged. A small pericardial effusion is present. Small mediastinal lymph nodes are identified. The largest measures 7 mm in short axis dimension. A small left and minimal right pleural effusion is identified. Interstitial prominence is seen at both lung bases but no airspace consolidation or pulmonary nodular ity is identified. ABDOMEN: There is a very large gallstone. Gallbladder wall is slightly thickened and there is pericholecystic fluid. No biliary ductal dilatation. Borderline hepatosplenomegaly. The pancreas and adrenal glands are normal. Right nephrolithiasis. No ureteral calculi. Small retroperitoneal lymph nodes are identified, ranging in size up to 1 cm in short axis dimension. No small bowel distention. Pelvis: The appendix is normal. Sigmoid diverticulosis. No dependent fluid collections or acute inflammatory changes are seen in the pelvis. No inguinal or pelvic adenopathy. There are mild degenerative changes seen at the L4-5 and L5 1 disc levels. No destructive bony abnorm alities. IMPRESSION: 1. Cholelithiasis with gallbladder wall thickening and pericholecystic fluid collection. 2. Pericardial effusion and small bilateral pleural effusions. 3. Mild basilar interstitial opacity could be acute or chronic. 4. Small mediastinal and retroperitoneal lymph nodes with borderline hepatosplenomegaly. 5. Right nephrolithiasis. Signer Name: Antwon Medrano MD Signed: 02/11/2020 3:08 PM Workstation Name: [id number]
--- NOTE | 2020-02-11 16:01 | Nuclear Medicine Report ---
NM perfusion only lung scan INDICATION / CLINICAL INFORMATION: chest pain. TECHNIQUE: Dose / Agent / Route: 5mCi technetium 99m MAA IV COMPARISON: PA and lateral chest x-ray 02/11/2020 FINDINGS: No segmental or subsegmental perfusion defects. Photon deficient region in the left lower hemithorax is due to the demonstrated pleural effusion. IMPRESSION: 1. No pulmonary perfusion defects. Signer Name: Antwon Medrano MD Signed: 02/11/2020 3:56 PM Workstation Name: [id number]
[2020-02-11 18:36] LABS: Bilirubin,Urine NEG (Negative); Blood,Urine SM (Negative); Color,Urine Yellow (Yellow); Urobilinogen,Urine < 2.0 mg/dL (<2.0)
[2020-02-11 18:40] LABS: Amphetamine Screen,Urine PRESUMPTIVE NEGATIVE; Benzodiazepines Screen,Urine PRESUMPTIVE NEGATIVE; Cannabinoid Screen,Urine PRESUMPTIVE NEGATIVE; Methadone Screen,Urine PRESUMPTIVE NEGATIVE; Opiate Screen,Urine PRESUMPTIVE NEGATIVE
[2020-02-11 19:00] LABS: Cocaine Screen,Urine PRESUMPTIVE POSITIVE
[2020-02-11] MEDS ORDERED: ACETAMINOPHEN 325 MG TAB PO PRN (22:33)
[2020-02-11] MEDS ORDERED: HYDROmorphone 1 MG/1 ML INJ IV PRN (22:33)
[2020-02-11] MEDS ORDERED: ONDANSETRON 4 MG/2 ML INJ IV PRN (22:33)
--- NOTE | 2020-02-11 22:39 | History and Physical Report ---
History of Present Illness Date of examination: 02/11/20 Date of admission: 02/11/20 15:14 Chief complaint: Chest pain for 1 week History of present illness: 54-year old female comes in for left-sided chest pain and left flank pain since yesterday. She states that she has been coughing for a week but denies hemoptysis. Chest pain is retrosternal.No diaphoresis or palpitations.No radiation.Not exacerbated by exertion or relieved by rest.No recent travel. Her creatine was 24/2.5 on last admissionn. No exposure to kevin virus. Smoking heavily. 2019 discharge summary --06/23/19 Hospital course: Discharge diagnosis: Community-acquired pneumonia Acute renal insufficiency vs SHIVANI on CKD ---Cr 2.5 UTI, cont abx Hypertension, uncontrolled CHF, stable COPD, stable hepatitis C - Past Medical History Previous Medical History?: Yes Congestive Heart Failure: Yes COPD: Yes Additional medical history: hep c copd - Surgical History Past Surgical History?: Yes Additional Surgical History: kidney stones - Social History Smoking Status: Current Every Day Smoker Substance Use Type: Prescribed - Medications Home Medications: Home Medications Medication Instructions Recorded Confirmed Last Taken Type Aspirin EC [Halfprin EC] 81 mg PO QDAY #30 tablet. 06/23/19 02/11/20 Unknown Rx carvediloL [Coreg] 12.5 mg PO BID #60 tablet 06/23/19 02/11/20 Unknown Rx hydrALAZINE [Apresoline TAB] 100 mg PO Q8HR #90 tab 06/23/19 02/11/20 Unknown Rx AtorvaSTATin 40 mg PO DAILY 02/11/20 02/11/20 Unknown History Lasix TAB 40 mg PO DAILY 02/11/20 02/11/20 Unknown History Lisinopril 2.5 mg PO DAILY 02/11/20 02/11/20 Unknown History amLODIPine 5 mg PO QDAY 02/11/20 02/11/20 Unknown History Review of Systems ROS: Stated complaint: CHEST PAIN, KATHERIN Other details as noted in HPI Constitutional: denies: chills, fever Eyes: denies: eye pain, eye discharge, vision change ENT: denies: ear pain, throat pain Respiratory: cough, shortness of breath. denies: wheezing Cardiovascular: chest pain. denies: palpitations Endocrine: no symptoms reported Gastrointestinal: denies: abdominal pain, nausea, diarrhea Genitourinary: denies: urgency, dysuria, discharge Musculoskeletal: denies: back pain, arthralgia Skin: denies: rash, lesions Neurological: denies: headache, weakness, paresthesias Psychiatric: denies: anxiety, depression Hematological/Lymphatic: denies: easy bleeding, easy bruising Medications and Allergies Allergies Allergy/AdvReac Type Severity Reaction Status Date / Time No Known Allergies Allergy Verified 06/21/19 16:18 Home Medications Medication Instructions Recorded Confirmed Last Taken Type Aspirin EC [Halfprin EC] 81 mg PO QDAY #30 tablet.dr 06/23/19 02/11/20 Unknown Rx carvediloL [Coreg] 12.5 mg PO BID #60 tablet 06/23/19 02/11/20 Unknown Rx hydrALAZINE [Apresoline TAB] 100 mg PO Q8HR #90 tab 06/23/19 02/11/20 Unknown Rx AtorvaSTATin 40 mg PO DAILY 02/11/20 02/11/20 Unknown History Lasix TAB 40 mg PO DAILY 02/11/20 02/11/20 Unknown History Lisinopril 2.5 mg PO DAILY 02/11/20 02/11/20 Unknown History amLODIPine 5 mg PO QDAY 02/11/20 02/11/20 Unknown History Active Meds: Active Medications Amlodipine Besylate (Amlodipine) 5 mg PO QDAY [facility] Aspirin (Halfprin Ec) 81 mg PO QDAY [facility] Atorvastatin Calcium (Lipitor) 40 mg PO DAILY [facility] Carvedilol (Coreg) 12.5 mg PO BID [facility] Furosemide (Lasix) 40 mg PO DAILY [facility] Hydralazine HCl (Apresoline) 100 mg PO Q8HR [facility] Miscellaneous Medication (Lisinopril) 2.5 mg PO DAILY [facility] Exam - Constitutional Vitals: Temp Pulse Resp BP Pulse Ox 98.0 F 70 18 112/59 88 02/11/20 19:19 02/11/20 19:19 02/11/20 19:19 02/11/20 19:19 02/11/20 19:19 General appearance: Present: no acute distress, well-nourished - EENT Eyes: Present: PERRL ENT: hearing intact, clear oral mucosa - Neck Neck: Present: supple, normal ROM - Respiratory Respiratory effort: normal Respiratory: bilateral: CTA - Cardiovascular Heart rate: 65 Rhythm: regular Heart Sounds: Present: S1 & S2. Absent: rub, click - Extremities Extremities: no ischemia, pulses symmetrical, No edema Peripheral Pulses: within normal limits - Abdominal General gastrointestinal: Present: soft, non-tender, non-distended, normal bowel sounds Female genitourinary: Present: normal - Rectal Rectal Exam: deferred - Integumentary Integumentary: Present: clear, warm, dry - Musculoskeletal Musculoskeletal: gait normal, strength equal bilaterally - Psychiatric Psychiatric: appropriate mood/affect, intact judgment & insight - Neurologic Neurologic: CNII-XII intact, moves all extremities UBALDO score - Ubaldo Score Age > 65: (0) No Aspirin use within the Past 7 Days: (0) No 3 or more CAD Risk Factors: (1) Yes 2 or more Angina events in past 24 hrs: (0) No Known CAD with more than 50% Stenosis: (0) No Elevated Cardiac Markers: (0) No ST Deviation Greater than 0.5mm: (0) No UBALDO Score: 1 Results - Labs CBC & Chem 7: 02/12/20 06:46 02/12/20 06:46 Labs: Laboratory Last Values WBC 5.0 K/mm3 (4.5-11.0) 02/11/20 12:55 RBC 3.28 M/mm3 (3.65-5.03) L 02/11/20 12:55 Hgb 9.4 gm/dl (10.1-14.3) L 02/11/20 12:55 Hct 28.8 % (30.3-42.9) L 02/11/20 12:55 MCV 88 fl (79-97) 02/11/20 12:55 MCH 29 pg (28-32) 02/11/20 12:55 MCHC 33 % (30-34) 02/11/20 12:55 RDW 14.5 % (13.2-15.2) 02/11/20 12:55 Plt Count 146 K/mm3 (140-440) 02/11/20 12:55 Lymph % (Auto) 12.7 % (13.4-35.0) L 02/11/20 12:55 [place] % (Auto) 10.4 % (0.0-7.3) H 02/11/20 12:55 Eos % (Auto) 0.6 % (0.0-4.3) 02/11/20 12:55 Baso % (Auto) 0.5 % (0.0-1.8) 02/11/20 12:55 Lymph # 0.6 K/mm3 (1.2-5.4) L 02/11/20 12:55 [place] # 0.5 K/mm3 (0.0-0.8) 02/11/20 12:55 Eos # 0.0 K/mm3 (0.0-0.4) 02/11/20 12:55 Baso # 0.0 K/mm3 (0.0-0.1) 02/11/20 12:55 Seg Neutrophils % 75.8 % (40.0-70.0) H 02/11/20 12:55 Seg Neutrophils # 3.8 K/mm3 (1.8-7.7) 02/11/20 12:55 PT 14.9 Sec. (12.2-14.9) 02/11/20 12: INR 1.15 (0.87-1.13) H 02/11/20 12:55 APTT 24.7 Sec. (24.2-36.6) 02/11/20 12:55 D-Dimer 3035.67 ng/mlDDU (0-234) H 02/11/20 12:55 Sodium 135 mmol/L (137-145) L 02/11/20 12:55 Potassium 4.5 mmol/L (3.6-5.0) 02/11/20 12:55 Chloride 101.3 mmol/L (98-107) 02/11/20 12:55 Carbon Dioxide 19 mmol/L (22-30) L 02/11/20 12:55 Anion Gap 19 mmol/L 02/11/20 12:55 BUN 71 mg/dL (7-17) H 02/11/20 12:55 Creatinine 4.8 mg/dL (0.7-1.2) H 02/11/20 12:55 Estimated GFR 9 ml/min 02/11/20 12:55 BUN/Creatinine Ratio 15 % 02/11/20 12: Glucose 116 mg/dL (65-100) H 02/11/20 12:55 Lactic Acid 0.60 mmol/L (0.7-2.0) L 02/11/20 12:55 Calcium 7.7 mg/dL (8.4-10.2) L 02/11/20 12:55 Magnesium 2.40 mg/dL (1.7-2.3) H 02/11/20 12:55 Total Bilirubin 0.30 mg/dL (0.1-1.2) 02/11/20 12:55 Direct Bilirubin < 0.2 mg/dL (0-0.2) 02/11/20 12:55 AST 38 units/L (5-40) 02/11/20 12:55 ALT 28 units/L (7-56) 02/11/20 12:55 Alkaline Phosphatase 92 units/L (35-129) 02/11/20 12:55 Total Creatine Kinase 66 units/L (30-135) 02/11/20 12:55 CK-MB (CK-2) 1.0 ng/mL (0.0-4.0) 02/11/20 12: CK-MB (CK-2) Rel Index 1.5 (0-4) 02/11/20 12:55 Troponin T 0.027 ng/mL (0.00-0.029) 02/11/20 19:10 NT-Pro-B Natriuret Pep 97291 pg/mL (0-900) H 02/11/20 12:55 Total Protein 6.4 g/dL (6.3-8.2) 02/11/20 12:55 Albumin 2.7 g/dL (3.9-5) L 02/11/20 12:55 Albumin/Globulin Ratio 0.7 % 02/11/20 12:55 Triglycerides 96 mg/dL (2-149) 02/11/20 12:55 Cholesterol 105 mg/dL (50-199) 02/11/20 12:55 LDL Cholesterol Direct 59 mg/dL (50-130) 02/11/20 12:55 HDL Cholesterol 35 mg/dL (40-59) L 02/11/20 12:55 Cholesterol/HDL Ratio 3.00 % 02/11/20 12:55 Urine Color Yellow (Yellow) 02/11/20 Unknown Urine Turbidity Clear (Clear) 02/11/20 Unknown Urine pH 5.0 (5.0-7.0) 02/11/20 Unknown Ur Specific [place] 1.010 (1.003-1.030) 02/11/20 Unknown Urine Protein 30 mg/dl mg/dL (Negative) 02/11/20 Unknown Urine Glucose (UA) Neg mg/dL (Negative) 02/11/20 Unknown Urine Ketones Neg mg/dL (Negative) 02/11/20 Unknown Urine Blood Sm (Negative) 02/11/20 Unknown Urine Nitrite Neg (Negative) 02/11/20 Unknown Urine Bilirubin Neg (Negative) 02/11/20 Unknown Urine Urobilinogen < 2.0 mg/dL (<2.0) 02/11/20 Unknown Ur Leukocyte Esterase Tr (Negative) 02/11/20 Unknown Urine WBC (Auto) 3.0 /HPF (0.0-6.0) 02/11/20 Unknown Urine RBC (Auto) 2.0 /HPF (0.0-6.0) 02/11/20 Unknown U Epithel Cells (Auto) 4.0 /HPF (0-13.0) 02/11/20 Unknown Urine Opiates Screen Presumptive negative 02/11/20 Unknown Urine Methadone Screen Presumptive negative 02/11/20 Unknown Ur Barbiturates Screen Presumptive negative 02/11/20 Unknown Ur Phencyclidine Scrn Presumptive negative 02/11/20 Unknown Ur Amphetamines Screen Presumptive negative 02/11/20 Unknown U Benzodiazepines Scrn Presumptive negative 02/11/20 Unknown Urine Cocaine Screen Presumptive positive 02/11/20 Unknown U Marijuana (THC) Screen Presumptive negative 02/11/20 Unknown Drugs of Abuse Note Disclamer 02/11/20 Unknown - Imaging and Cardiology EKG: report reviewed (SR--65/min LVH ) Imaging and Cardiology: CT chest IMPRESSION: 1. Cholelithiasis with gallbladder wall thickening and pericholecystic fluid collection. 2. Pericardial effusion and small bilateral pleural effusions. 3. Mild basilar interstitial opacity could be acute or chronic. 4. Small mediastinal and retroperitoneal lymph nodes with borderline hepatosplenomegaly. 5. Right nephrolithiasis. CT abdomen ABDOMEN: There is a very large gallstone. Gallbladder wall is slightly thickened and there is pericholecystic fluid. No biliary ductal dilatation. Borderline hepatosplenomegaly. The pancreas and adrenal glands are normal. Right nephrolithiasis. No ureteral calculi. Small retroperitoneal lymph nodes are identified, ranging in size up to 1 cm in short axis dimension. No small bowel distention. Pelvis: The appendix is normal. Sigmoid diverticulosis. No dependent fluid collections or acute inflammatory changes are seen in the pelvis. No inguinal or pelvic adenopathy. There are mild degenerative changes seen at the L4-5 and L5 1 disc levels. No destructive bony abnormalities. IMPRESSION: 1. Cholelithiasis with gallbladder wall thickening and pericholecystic fluid collection. 2. Pericardial effusion and small bilateral pleural effusions. 3. Mild basilar interstitial opacity could be acute or chronic. 4. Small mediastinal and retroperitoneal lymph nodes with borderline hepatosplenomegaly. 5. Right nephrolithiasis. Signer Name: Antwon Medrano MD Signed: 02/11/2020 3:08 PM Workstation Name: [id number] Chest x-ray IMPRESSION: 1. Cardiomegaly with new moderate left pleural effusion Signer Name: Enrike Lockett Suh/IV: IV Catheter Type [Right INT / Saline Lock Forearm] Assessment and Plan Advance Directives: Yes (Full code) - Patient Problems (1) Chest pain Current Visit: Yes Status: Acute Qualifiers: Chest pain type: unspecified Qualified Code(s): R07.9 - Chest pain, unspecified Plan to address problem: Chest pain rule out [place] protocol Serial troponins Lexiscan on Thursday' Differential diagnosis of GERD/Costochondritis (2) Hypertension Current Visit: Yes Status: Chronic Qualifiers: Hypertension type: essential hypertension Qualified Code(s): I10 - Essential (primary) hypertension Plan to address problem: Continue antihypertensives Monitor blood pressure Adjust medications as necessary (3) Hyperlipidemia Current Visit: Yes Status: Chronic Qualifiers: Hyperlipidemia type: mixed hyperlipidemia Qualified Code(s): E78.2 - Mixed hyperlipidemia Plan to address problem: Continue statins (4) Acute kidney injury Current Visit: Yes Status: Acute Plan to address problem: SHIVANI on CKD Will request Nephtolgy consult (5) CHF (congestive heart failure) Current Visit: Yes Status: Chronic Qualifiers: Heart failure type: combined systolic and diastolic Plan to address problem: Refused ECHO in Jul 07 Will gert ECHO for EF BNP 33221 (6) COPD (chronic obstructive pulmonary disease) Current Visit: Yes Status: Chronic Qualifiers: Emphysema type: unspecified Plan to address problem: Bronchodilators (7) Hep C w/o coma, chronic Current Visit: Yes Status: Chronic Plan to address problem: Treat as outpatient (8) DVT prophylaxis Current Visit: Yes Status: Acute Plan to address problem: On Heparin and GI prophylaxis
[2020-02-11] MEDS ORDERED: SODIUM CHLORIDE 0.9% 1000 ML 1,000 ML IV SCH (23:00)
[2020-02-12] MEDS: carvediloL 12.5 MG TAB PO SCH ×3 (05:02→22:28)
[2020-02-12] MEDS: hydrALAZINE 100 MG TAB PO SCH ×4 (05:02→22:29)
[2020-02-12 07:11] LABS: Basophils % (Auto) 0.4 % (0.0-1.8); Eosinophils # (Auto) 0.1 K/mm3 (0.0-0.4); Eosinophils % (Auto) 1.7 % (0.0-4.3); Hematocrit 28.4 % (30.3-42.9); Hemoglobin 9.4 gm/dl (10.1-14.3); Lymphocytes # (Auto) 0.8 K/mm3 (1.2-5.4); Lymphocytes % (Auto) 17.9 % (13.4-35.0); Mean Corpuscular HGB Conc 33 % (30-34); Mean Corpuscular Volume 87 fl (79-97); Monocytes # (Auto) 0.4 K/mm3 (0.0-0.8); Monocytes % (Auto) 9.3 % (0.0-7.3); Platelet Count 166 K/mm3 (140-440); Red Blood Count 3.28 M/mm3 (3.65-5.03); Red Cell Distribution Width 14.5 % (13.2-15.2)
[2020-02-12 07:21] LABS: Albumin 2.7 g/dL (3.9-5)
[2020-02-12] MEDS ORDERED: LISINOPRIL 5 MG TAB PO SCH (10:00)
[2020-02-12] MEDS ORDERED: NON-FORMULARY EACH (Lisinopril 2.5 MG) PO SCH (10:00)
[2020-02-12] MEDS ORDERED: FAMOTIDINE 20 MG TAB PO SCH (10:00)
[2020-02-12] MEDS ORDERED: LASIX 40 MG PO SCH (10:00)
[2020-02-12] MEDS ORDERED: NON-FORMULARY EACH (Atorvastatin 40 MG) PO SCH (10:00)
[2020-02-12] MEDS: FAMOTIDINE 10 MG TAB PO SCH ×2 (11:59→22:28)
[2020-02-12] MEDS ORDERED: FLU VACC QUAD 2019-20 (3 YR UP)/PF 60 MCG/0.5 ML SYRINGE IM ONE (12:00)
[2020-02-12] MEDS: amLODIPine 5 MG TAB PO SCH (12:01)
[2020-02-12] MEDS: FUROSEMIDE 40 MG TAB PO SCH (12:02)
[2020-02-12] MEDS: ASPIRIN EC 81 MG TAB PO SCH (12:11)
--- NOTE | 2020-02-12 13:22 | Consultation ---
History of Present Illness - Reason for Consult Consult date: 02/12/20 acute renal failure Requesting physician: TERESA GONSALEZ - History of Present Illness This is a 54 yo F with past medical history for hypertension, HepC, active smoker, who presents to [facility] ER with complaints of left sided chest pain and left flank pain for 1-2 days. pt denies SOB, OSMAN, fever, chills, but reports intermittent productive cough. CXR in ER showed cardiomegaly with new left pleural effusion, VQ scan showed low probability of PE, CT C/A/P confirmed cardiomegaly, pleural effusion. no acute renal abnormalities seen except Rt nephrolithiasis. Labs showed elevated BUN/Cr at 71/4,8mg/dl for which renal consult is requested. Pt denies recent NSAIDs, use or IV contrast exposure. pt is uninsured and did not have regular medical follow up. Previous Cr was 2.5mg/dl in 06/2019. Past History Past Medical History: hypertension, renal failure Past Surgical History: No surgical history Social history: smoking. denies: alcohol abuse, prescription drug abuse Family history: hypertension Medications and Allergies Allergies Allergy/AdvReac Type Severity Reaction Status Date / Time No Known Allergies Allergy Verified 06/21/19 16:18 Home Medications Medication Instructions Recorded Confirmed Last Taken Type Aspirin EC [Halfprin EC] 81 mg PO QDAY #30 tablet. 06/23/19 02/11/20 Unknown Rx carvediloL [Coreg] 12.5 mg PO BID #60 tablet 06/23/19 02/11/20 Unknown Rx hydrALAZINE [Apresoline TAB] 100 mg PO Q8HR #90 tab 06/23/19 02/11/20 Unknown Rx AtorvaSTATin 40 mg PO DAILY 02/11/20 02/11/20 Unknown History Lasix TAB 40 mg PO DAILY 02/11/20 02/11/20 Unknown History Lisinopril 2.5 mg PO DAILY 02/11/20 02/11/20 Unknown History amLODIPine 5 mg PO QDAY 02/11/20 02/11/20 Unknown History Active Meds: Active Medications Acetaminophen (Tylenol) 650 mg PO Q4H PRN PRN Reason: Pain MILD(1-3)/Fever >100.5/[place] Amlodipine Besylate (Amlodipine) 5 mg PO QDAY [facility] Last Admin: 02/12/20 12:01 Dose: 5 mg Documented by: Aspirin (Halfprin Ec) 81 mg PO QDAY [facility] Last Admin: 02/12/20 12:11 Dose: 81 mg Documented by: Atorvastatin Calcium (Lipitor) 40 mg PO DAILY [facility] Last Admin: 02/12/20 12:00 Dose: 40 mg Documented by: Carvedilol (Coreg) 12.5 mg PO BID [facility] Last Admin: 02/12/20 11:59 Dose: 12.5 mg Documented by: Famotidine (Pepcid) 10 mg PO BID [facility] Last Admin: 02/12/20 11:59 Dose: 10 mg Documented by: Furosemide (Lasix) 40 mg PO DAILY [facility] Last Admin: 02/12/20 12:02 Dose: 40 mg Documented by: Hydralazine HCl (Apresoline) 100 mg PO Q8HR [facility] Last Admin: 02/12/20 05:04 Dose: 100 mg Documented by: Hydromorphone HCl (Dilaudid) 0.5 mg IV Q3H PRN PRN Reason: Pain , Severe (7-10) Sodium Chloride (Nacl 0.9% 1000 Ml) 1,000 mls @ 75 mls/hr IV DIRECT [facility] Lisinopril (Zestril) 2.5 mg PO DAILY [facility] Last Admin: 02/12/20 12:00 Dose: 2.5 mg Documented by: Ondansetron HCl (Zofran) 4 mg IV Q8H PRN PRN Reason: Nausea And Vomiting Oxycodone/Acetaminophen (Percocet 5/325) 1 tab PO Q6H PRN PRN Reason: Pain, Moderate (4-6) Sodium Chloride (Sodium Chloride Flush Syringe 10 Ml) 10 ml IV BID [facility] Last Admin: 02/12/20 12:04 Dose: 10 ml Documented by: Sodium Chloride (Sodium Chloride Flush Syringe 10 Ml) 10 ml IV PRN PRN PRN Reason: LINE FLUSH Review of Systems All systems: negative Constitutional: fatigue, weakness Cardiovascular: chest pain, shortness of breath, dyspnea on exertion Exam - Vital Signs Vital signs: Vital Signs Temp Pulse Resp BP Pulse Ox 98.3 F 64 18 106/59 93 02/11/20 12:16 02/11/20 12:16 02/11/20 12:16 02/11/20 12:16 02/11/20 12:16 - General Appearance General appearance: well-developed, well-nourished, appears stated age EENT: ATNC, PERRL, mucous membranes moist Neck: Present: neck supple Respiratory: Decreased Breath Sounds Heart: regular, S1S2 Gastrointestinal: Present: normoactive bowel sounds Integumentary: no rash, other (no edema ) Neurologic: no focal deficit, alert and oriented x3, strength 5/5, CN 3-12 intact Psychiatric: mood/affect appropriate, cooperative Results - Lab Results 02/12/20 06:46 02/12/20 06:46 Most recent lab results Calcium 8.0 mg/dL (8.4-10.2) L 02/12/20 06:46 Magnesium 2.40 mg/dL (1.7-2.3) H 02/11/20 12:55 Laboratory Tests 06/21/19 02/11/20 02/11/20 20:54 12:55 12:55 Total Bilirubin 0.30 Direct Bilirubin < 0.2 AST 38 ALT 28 Alkaline Phosphatase 92 Total Creatine Kinase 147 H 66 CK-MB (CK-2) 1.0 CK-MB (CK-2) Rel Index 1.5 Troponin T NT-Pro-B Natriuret Pep 15092 H Total Protein Albumin 02/11/20 02/11/20 02/12/20 19:10 22:56 06:46 Total Bilirubin Direct Bilirubin AST ALT Alkaline Phosphatase Total Creatine Kinase CK-MB (CK-2) CK-MB (CK-2) Rel Index Troponin T 0.027 0.031 H NT-Pro-B Natriuret Pep Total Protein 6.3 Albumin 2.7 L 02/12/20 06:46 Total Bilirubin Direct Bilirubin AST ALT Alkaline Phosphatase Total Creatine Kinase CK-MB (CK-2) CK-MB (CK-2) Rel Index Troponin T 0.022 NT-Pro-B Natriuret Pep Total Protein Albumin Assessment and Plan - Patient Problems (1) Acute on chronic renal failure Current Visit: Yes Status: Acute Qualifiers: Acute renal failure type: unspecified Chronic kidney disease stage: stage 4 (severe) Qualified Code(s): N17.9 - Acute kidney failure, unspecified; N18.4 - Chronic kidney disease, stage 4 (severe) Plan to address problem: acute kidney injury likely d/t acute cardiorenal syndrome, superimposed on CKD. Echocardiogram ordered. hold maintenance IVF, Cont diuresis with lasix 40mg po qd. strict I/Os, daily weight. recommend to hold VINAY-I for now in the setting of SHIVANI. avoid nephrotoxins, NSAIDS, IV contrast will monitor lytes, renal parameters, urine lytes and Prot/Cr ratio and make further recommendations. (2) Hypertensive chronic kidney disease with stage 1 through stage 4 chronic kidney disease, or unspecified chronic kidney disease Current Visit: Yes Status: Acute Plan to address problem: BP well controlled. monitor on current meds (lisinopril held given SHIVANI) (3) CHF (congestive heart failure) Current Visit: Yes Status: Chronic Qualifiers: Heart failure type: combined systolic and diastolic Plan to address problem: follow echocardiogram. cont lasix 40mg po qd, pt is already on BB (4) Hep C w/o coma, chronic Current Visit: Yes Status: Chronic
[2020-02-12] MEDS ORDERED: SODIUM CHLORIDE 0.9% 100 ML IVPB IV SCH (19:00)
[2020-02-12] MEDS ORDERED: SODIUM CHLORIDE 0.9% 1000 ML 1,000 ML ONE (19:23)
[2020-02-13] MEDS: oxyCODONE /ACETAMINOPHEN 5-325MG TAB PO PRN ×2 (00:09→21:46)
[2020-02-13 04:28] LABS: Creatinine,Urine 63.7 mg/dL (0.1-20.0)
[2020-02-13] MEDS: hydrALAZINE 100 MG TAB PO SCH ×3 (05:43→21:46)
[2020-02-13] MEDS ORDERED: REGADENOSON 0.4 MG/5 ML INJ IV ONE ×2 (07:54→08:00)
--- NOTE | 2020-02-13 08:48 | Progress Note ---
Assessment and Plan - Patient Problems (1) Chest pain Current Visit: Yes Status: Acute Qualifiers: Chest pain type: unspecified Qualified Code(s): R07.9 - Chest pain, unspecified Plan to address problem: Chest pain rule out [place] protocol Serial troponins Lexiscan on Thursday' Differential diagnosis of GERD/Costochondritis (2) Hypertension Current Visit: Yes Status: Chronic Qualifiers: Hypertension type: essential hypertension Qualified Code(s): I10 - Essenti al (primary) hypertension Plan to address problem: Continue antihypertensives Monitor blood pressure Adjust medications as necessary (3) Hyperlipidemia Current Visit: Yes Status: Chronic Qualifiers: Hyperlipidemia type: mixed hyperlipidemia Qualified Code(s): E78.2 - Mixed hyperlipidemia Plan to address problem: Continue statins (4) Acute kidney injury Current Visit: Yes Status: Acute Plan to address problem: SHIVANI on CKD Nephtolgy consult appreciated (5) CHF (congestive heart failure) Current Visit: Yes Status: Chronic Qualifiers: Heart failure type: combined systolic and diastolic Plan to address problem: Refused ECHO in Jul 07 Will gert ECHO for EF BNP 96022 (6) COPD (chronic obstructive pulmonary disease) Current Visit: Yes Status: Chronic Qualifiers: Emphysema type: unspecified Plan to address problem: Bronchodilators (7) Hep C w/o coma, chronic Current Visit: Yes Status: Chronic Plan to address problem: Treat as outpatient (8) DVT prophylaxis Current Visit: Yes Status: Acute Plan to address problem: On Heparin and GI prophylaxis Subjective Date of service: 02/12/20 Principal diagnosis: SHIVANI,Chest pain Interval history: 54-year old female comes in for left-sided chest pain and left flank pain since yesterday. She states that she has been coughing for a week but denies hemoptysis. Chest pain is retrosternal.No diaphoresis or palpitations.No radiation.Not exacerbated by exertion or relieved by rest.No recent travel. Her creatine was 24/2.5 on last admissionn. No exposure to kevin virus. Smoking heavily. Objective - Constitutional Vitals: Vital Signs - 12hr 02/12/20 02/12/20 02/13/20 22:28 23:40 00:00 Temperature 98.6 F Pulse Rate 67 67 67 Respiratory 16 Rate Respiratory Rate [Bilateral ] Blood Pressure 145/71 115/55 O2 Sat by Pulse 92 Oximetry 02/13/20 02/13/20 00:09 03:19 Temperature Pulse Rate Respiratory 20 Rate Respiratory 18 Rate [Bilateral ] Blood Pressure O2 Sat by Pulse Oximetry General appearance: Present: no acute distress, well-nourished - EENT Eyes: PERRL, EOM intact ENT: hearing intact, clear oral mucosa Ears: bilateral: normal - Neck Neck: supple, normal ROM - Respiratory Respiratory effort: normal Respiratory: bilateral: CTA - Breasts Breasts: normal - Cardiovascular Heart rate: 78 Rhythm: regular Heart Sounds: Present: S1 & S2. Absent: gallop, rub Extremities: pulses intact, No edema, normal color, Full ROM - Gastrointestinal General gastrointestinal: Present: soft, non-tender, non-distended, normal bowel sounds - Genitourinary Female genitourinary: normal - Integumentary Integumentary: clear, warm, dry - Musculoskeletal Musculoskeletal: 1, strength equal bilaterally - Neurologic Neurologic: moves all extremities - Psychiatric Psychiatric: memory intact, appropriate mood/affect, intact judgment & insight - Labs CBC & Chem 7: 02/12/20 06:46 02/12/20 06:46 Labs: Abnormal lab results 02/12/20 Range/Units 03:20 Urine Creatinine 63.7 H (0.1-20.0) mg/dL Urine Total Protein 53 H (5-11.8) mg/dL
[2020-02-13] MEDS: amLODIPine 5 MG TAB PO SCH (09:01)
[2020-02-13] MEDS: ASPIRIN EC 81 MG TAB PO SCH (09:01)
[2020-02-13] MEDS: FAMOTIDINE 10 MG TAB PO SCH ×2 (09:01→21:46)
[2020-02-13] MEDS: carvediloL 12.5 MG TAB PO SCH ×2 (09:02→21:46)
--- NOTE | 2020-02-13 10:21 | Progress Note ---
Assessment and Plan - Patient Problems (1) Acute on chronic renal failure Current Visit: Yes Status: Acute Qualifiers: Acute renal failure type: unspecified Chronic kidney disease stage: stage 4 (severe) Qualified Code(s): N17.9 - Acute kidney failure, unspecified; N18.4 - Chronic kidney disease, stage 4 (severe) Plan to address problem: acute kidney injury superimposed on chronic kidney disease. Chronic kidney disease presumed secondary to hypertensive nephrosclerosis. Acute kidney injury probably Pre-renal azotemia ? acute cardiorenal syndrome. kidney function test was not done today. Requested labs. Follow-up electrolytes and renal function. (2) Gallstones Current Visit: Yes Status: Acute Plan to address problem: gallstones with pericholecystic fluid. Pain worse on lying on your right side ? associated with this. We will get limited right upper quadrant abdominal ultrasound. consider HIDA scan depending on the results (3) Hypertensive chronic kidney disease with stage 1 through stage 4 chronic kidney disease, or unspecified chronic kidney disease Current Visit: Yes Status: Acute Plan to address problem: Continue current medications (4) Pleural effusion, left Current Visit: Yes Status: Acute Plan to address problem: follow-up chest x-ray in the morning (5) CHF (congestive heart failure) Current Visit: Yes Status: Chronic Qualifiers: Heart failure type: combined systolic and diastolic Plan to address problem: appears clinically euvolemic. Follow-up 2D echo (6) COPD (chronic obstructive pulmonary disease) Current Visit: Yes Status: Chronic Qualifiers: Emphysema type: unspecified Plan to address problem: continue bronchodilator treatments (7) Hep C w/o coma, chronic Current Visit: Yes Status: Chronic Plan to address problem: follow-up with unit nurse as an outpatient (8) Hyperlipidemia Current Visit: Yes Status: Chronic Qualifiers: Hyperlipidemia type: mixed hyperlipidemia Qualified Code(s): E78.2 - Mixed hyperlipidemia Plan to address problem: continue treatment Subjective Date of service: 02/13/20 Principal diagnosis: SHIVANI,Chest pain Interval history: patient seen lying in bed. She has no complaints today. She denies any shortness of breath but admits to midsternal chest pain was on line on the right side. No nausea or vomiting Objective - Exam Narrative Exam: middle-age female lying in bedin no acute distress HEENT: Normocephalic atraumatic, pupils equal round reactive to light Normal oropharynx, Neck: Supple, no venous distention, no goiter CVS: S1S2 RRR no murmur, rub or gallop Lungs: Clear to auscultation, no use of accessory muscles of respiration Abdomen: Full, soft, nontender, no organomegaly no bruit, bowel sounds are present Extremities: No edema, no cyanosis or clubbing Urinary: Deferred Musculo-skeletal: No joint deformities or swelling Neuro: Awake, alert, no focal deficits - Vital Signs Vital signs: Vital Signs - 12hr 02/12/20 02/12/20 02/13/20 22:28 23:40 00:00 Temperature 98.6 F Pulse Rate 67 67 67 Respiratory 16 Rate Respiratory Rate [Bilateral ] Blood Pressure 145/71 115/55 O2 Sat by Pulse 92 Oximetry 02/13/20 02/13/20 02/13/20 00:09 03:19 04:13 Temperature 98.3 F Pulse Rate 60 Respiratory 20 16 Rate Respiratory 18 Rate [Bilateral ] Blood Pressure 146/79 O2 Sat by Pulse 92 Oximetry 02/13/20 02/13/20 02/13/20 07:56 09:01 09:02 Temperature 98.2 F Pulse Rate 62 92 H 92 H Respiratory 18 Rate Respiratory Rate [Bilateral ] Blood Pressure 153/76 O2 Sat by Pulse 94 Oximetry - Lab 02/12/20 06:46 02/12/20 06:46 Most recent lab results Calcium 8.0 mg/dL (8.4-10.2) L 02/12/20 06:46 Magnesium 2.40 mg/dL (1.7-2.3) H 02/11/20 12:55 Urine Creatinine 63.7 mg/dL (0.1-20.0) H 02/12/20 03:20 Urine Sodium 74 mmol/L 02/12/20 03:20 Urine Total Protein 53 mg/dL (5-11.8) H 02/12/20 03:20 Medications & Allergies - Medications Allergies/Adverse Reactions: Allergies No Known Allergies Allergy (Verified 06/21/19 16:18) Home Medications: Home Medications Medication Instructions Recorded Confirmed Last Taken Type Aspirin EC [Halfprin EC] 81 mg PO QDAY #30 tablet. 06/23/19 02/11/20 Unknown Rx carvediloL [Coreg] 12.5 mg PO BID #60 tablet 06/23/19 02/11/20 Unknown Rx hydrALAZINE [Apresoline TAB] 100 mg PO Q8HR #90 tab 06/23/19 02/11/20 Unknown Rx AtorvaSTATin 40 mg PO DAILY 02/11/20 02/11/20 Unknown History Lasix TAB 40 mg PO DAILY 02/11/20 02/11/20 Unknown History Lisinopril 2.5 mg PO DAILY 02/11/20 02/11/20 Unknown History amLODIPine 5 mg PO QDAY 02/11/20 02/11/20 Unknown History Active Medications: Generic Name Dose Route Start Last Admin Trade Name Freq PRN Reason Stop Dose Admin Acetaminophen 650 mg 02/11/20 22:33 Tylenol PO Q4H PRN Pain MILD(1-3)/Fever >100.5/[facility] Amlodipine Besylate 5 mg 02/12/20 10:00 02/13/20 09:01 Amlodipine PO 5 mg QDAY [facility] Administration Aspirin 81 mg 02/12/20 10:00 02/13/20 09:01 Halfprin Ec PO 81 mg QDAY [facility] Administration Atorvastatin Calcium 40 mg 02/12/20 10:00 02/13/20 09:02 Lipitor PO 40 mg DAILY [facility] Administration Carvedilol 12.5 mg 02/11/20 23:00 02/13/20 09:02 Coreg PO 12.5 mg BID [facility] Administration Famotidine 10 mg 02/12/20 10:00 02/13/20 09:01 Pepcid PO 10 mg BID [facility] Administration Furosemide 40 mg 02/12/20 10:00 02/12/20 12:02 Lasix PO 40 mg DAILY [facility] Administration Hydralazine HCl 100 mg 02/11/20 23:00 02/13/20 05:43 Apresoline PO Not Given Q8HR [facility] Hydromorphone HCl 0.5 mg 02/11/20 22:33 Dilaudid IV Q3H PRN Pain , Severe (7-10) Ondansetron HCl 4 mg 02/11/20 22:33 Zofran IV Q8H PRN Nausea And Vomiting Oxycodone/Acetaminophen 1 tab 02/11/20 22:33 02/13/20 00:09 Percocet 5/325 PO 1 tab Q6H PRN Administration Pain, Moderate (4-6) Regadenoson 0.4 mg 02/13/20 08:00 Lexiscan IV 02/13/20 08:01 ONCE ONE Sodium Chloride 10 ml 02/11/20 23:00 02/13/20 09:03 Sodium Chloride Flush Syringe 10 Ml IV 10 ml BID CORN[facility] Administration Sodium Chloride 10 ml 02/11/20 22:33 Sodium Chloride Flush Syringe 10 Ml IV PRN PRN LINE FLUSH Sodium Chloride 1,000 ml 02/12/20 19:00 Nacl 0.9% IV DIRECT CORNELIA
[2020-02-13] MEDS ORDERED: ONDANSETRON 4 MG/2 ML INJ ONE (10:57)
--- NOTE | 2020-02-13 13:15 | Progress Note ---
Assessment and Plan /Left pleural effusion - ordered for thoracentesis -Could be from underlying CHF /Chest pain Status post stress test today showed no reversible ischemia and low EF Possible CHF versus coronary artery disease, cardiology consulted We will continue aspirin statin and beta-millicent Order 2D echo /Hypertension Continue antihypertensives Monitor blood pressure Adjust medications as necessary /Hyperlipidemia Continue statins /Acute kidney injury SHIVANI on CKD -likely from vasomotor nephropathy Nephrolgy consult appreciated /CHF (congestive heart failure) likely systolic dysfunction with acute exacerbation/ Refused ECHO in Jul 07 Will gert ECHO for EF BNP 15397 Ordered IV Lasix, consulted cardiology /COPD (chronic obstructive pulmonary disease) continue bronchodilators /Cocaine abuse counseled /Hep C w/o coma, chronic Treat as outpatient /DVT prophylaxis On Heparin and GI prophylaxis 02/12: status post stress test today, ordered for thoracentesis. Cardiology consulted for possible CHF exacerbation Brief history: This is a 54 yo F with past medical history for hypertension, HepC, active smoker, who presents to [facility] ER with complaints of left sided chest pain and left flank pain for 1-2 days. CXR in ER showed cardiomegaly with new left pleural effusion, VQ scan showed low probability of PE, CT C/A/P confirmed cardiomegaly, pleural effusion. Labs showed elevated BUN/Cr at 71/4,8mg/dl for which renal consult is requested. pt is currently scheduled for thoracentesis. Pt underwent lexiscan MPI stress test which was negative for ischemia with EF 35% and thus cardiology has been consulted. Physical exam: GENERAL: Elderly female lying on bed appeared to be in no discomfort. HEENT: Normocephalic. Atraumatic. No conjunctival congestion or icterus. Pat ient has moist mucous membranes. NECK: Supple. Trachea midline. CHEST/LUNGS: Diminished breath sound auscultated bilaterally, breathing nonlabored. No wheezes HEART/CARDIOVASCULAR: Regular in rate and rhythm. S1 and S2 positive. ABDOMEN: Abdomen is soft, nontender. Patient has normal bowel sounds. SKIN: There is no rash. Warm and dry. NEURO: No focal motor deficit. Follows command. MUSCULOSKELETAL: No joint effusion or tenderness. EXTRIMITY: No edema, no cyanosis or clubbing. PSYCH: Cooperative. Subjective Date of service: 02/13/20 Principal diagnosis: SHIVANI,Chest pain Interval history: Patient seen and examined. Medical records and medication list reviewed. No acute event overnight noted by the RN. Patient complains of difficulty breathing even on resting. Status post stress test today Discussed plan of care at bedside with patient. Objective - Constitutional Vitals: Vital Signs - 12hr 02/13/20 02/13/20 02/13/20 03:19 04:13 07:56 Temperature 98.3 F 98.2 F Pulse Rate 60 62 Respiratory 16 18 Rate Respiratory 18 Rate [Bilateral ] Blood Pressure 146/79 153/76 O2 Sat by Pulse 92 94 Oximetry 02/13/20 02/13/20 09:01 09:02 Temperature Pulse Rate 92 H 92 H Respiratory Rate Respiratory Rate [Bilateral ] Blood Pressure O2 Sat by Pulse Oximetry - Labs CBC & Chem 7: 02/12/20 06:46 02/15/20 07:59 Labs: Abnormal lab results 02/12/20 Range/Units 03:20 Urine Creatinine 63.7 H (0.1-20.0) mg/dL Urine Total Protein 53 H (5-11.8) mg/dL
[2020-02-13] MEDS: FUROSEMIDE 40 MG TAB PO SCH (14:21)
[2020-02-13] MEDS: SODIUM CHLORIDE 0.9% 1000 ML 1,000 ML IV SCH (14:29)
[2020-02-13 14:33] LABS: Calcium 8.3 mg/dL (8.4-10.2)
[2020-02-14] MEDS: SODIUM CHLORIDE 0.9% 1000 ML 1,000 ML IV SCH ×2 (02:59→19:09)
[2020-02-14 05:33] LABS: Albumin 2.8 g/dL (3.9-5); Calcium 8.3 mg/dL (8.4-10.2)
--- NOTE | 2020-02-14 10:36 | Consultation ---
History of Present Illness Consult date: 02/14/20 Requesting physician: MORENA WHITEHEAD Consult reason: congestive heart failure History of present illness: The pt is a 54-year old female with a past medical history of HTN, COPD, tobacco use, kidney stones, hepatitis C. She is previously unknown to our practice. She presented with c/o progressively worsening SOB, left-sided chest pain and left flank pain for 1 day prior to arrival. She states that her chest pain is aggravated by palpation of the left chest wall and by lying on her right side. She denies any palpitations, n/v, diaphoresis, dizziness or syncope. CXR shows left sided pleural effusion and pt is currently scheduled for thoracentesis per primary team. Pt underwent lexiscan MPI stress test yesterday which was negative for ischemia with EF 35% and thus cardiology has been consulted. tte reviewed - EF 45-50%, LV mildly dilated, mild LVH, mod pleural effusion. Pt reports that she was diagnosed with "CHF" several years ago at [facility]. Patient states that she is unable to see doctors regularly due to lack of insurance. Past History Past Medical History: COPD, hypertension, renal failure, other (as per HPI) Past Surgical History: No surgical history Social history: smoking. denies: alcohol abuse, prescription drug abuse Family history: hypertension Medications and Allergies Allergies Allergy/AdvReac Type Severity Reaction Status Date / Time No Known Allergies Allergy Verified 06/21/19 16:18 Home Medications Medication Instructions Recorded Confirmed Last Taken Type Aspirin EC [Halfprin EC] 81 mg PO QDAY #30 tablet. 06/23/19 02/11/20 Unknown Rx carvediloL [Coreg] 12.5 mg PO BID #60 tablet 06/23/19 02/11/20 Unknown Rx hydrALAZINE [Apresoline TAB] 100 mg PO Q8HR #90 tab 06/23/19 02/11/20 Unknown Rx AtorvaSTATin 40 mg PO DAILY 02/11/20 02/11/20 Unknown History Lasix TAB 40 mg PO DAILY 02/11/20 02/11/20 Unknown History Lisinopril 2.5 mg PO DAILY 02/11/20 02/11/20 Unknown History amLODIPine 5 mg PO QDAY 02/11/20 02/11/20 Unknown History Active Meds: Active Medications Acetaminophen (Tylenol) 650 mg PO Q4H PRN PRN Reason: Pain MILD(1-3)/Fever >100.5/[facility] Amlodipine Besylate (Amlodipine) 5 mg PO QDAY [facility] Last Admin: 02/13/20 09:01 Dose: 5 mg Documented by: Aspirin (Halfprin Ec) 81 mg PO QDAY [facility] Last Admin: 02/13/20 09:01 Dose: 81 mg Documented by: Atorvastatin Calcium (Lipitor) 40 mg PO DAILY [facility] Last Admin: 02/13/20 09:02 Dose: 40 mg Documented by: Carvedilol (Coreg) 12.5 mg PO BID [facility] Last Admin: 02/13/20 21:46 Dose: 12.5 mg Documented by: Famotidine (Pepcid) 10 mg PO BID [facility] Last Admin: 02/13/20 21:46 Dose: 10 mg Documented by: Furosemide (Lasix) 40 mg PO DAILY [facility] Last Admin: 02/13/20 14:21 Dose: 40 mg Documented by: Hydralazine HCl (Apresoline) 100 mg PO Q8HR [facility] Last Admin: 02/13/20 21:46 Dose: 100 mg Documented by: Hydromorphone HCl (Dilaudid) 0.5 mg IV Q3H PRN PRN Reason: Pain , Severe (7-10) Sodium Chloride (Nacl 0.9% 1000 Ml) 1,000 mls @ 75 mls/hr IV DIRECT [facility] Last Admin: 02/14/20 02:59 Dose: 75 mls/hr Documented by: Ondansetron HCl (Zofran) 4 mg IV Q8H PRN PRN Reason: Nausea And Vomiting Oxycodone/Acetaminophen (Percocet 5/325) 1 tab PO Q6H PRN PRN Reason: Pain, Moderate (4-6) Last Admin: 02/13/20 21:46 Dose: 1 tab Documented by: Sodium Chloride (Sodium Chloride Flush Syringe 10 Ml) 10 ml IV BID [facility] Last Admin: 02/14/20 02:59 Dose: 10 ml Documented by: Sodium Chloride (Sodium Chloride Flush Syringe 10 Ml) 10 ml IV PRN PRN PRN Reason: LINE FLUSH Review of Systems Constitutional: no weight loss, no weight gain, no fever, no chills, no sweats Ears, nose, mouth and throat: no ear pain, no nose pain, no sinus pressure, no sinus pain Cardiovascular: chest pain, shortness of breath, dyspnea on exertion, high blood pressure, leg edema (mild BLE), no orthopnea, no palpitations, no rapid/irregular heart beat, no edema, no syncope, no lightheadedness, no decreased exercise tolerance Respiratory: shortness of breath, dyspnea on exertion, no cough, no congestion, no wheezing, no pain on inspiration Gastrointestinal: no abdominal pain, no nausea, no vomiting, no diarrhea, no constipation, no change in bowel habits Genitourinary Female: no pelvic pain, no flank pain, no dysuria, no urinary frequency, no urgency Musculoskeletal: no neck stiffness, no neck pain, no shooting arm pain, no arm numbness/tingling, no low back pain, no shooting leg pain Integumentary: no rash, no pruritis, no redness, no sores, no wounds Neurological: no head injury, no paralysis, no weakness, no parathesias, no numb ness, no tingling, no seizures, no syncope Psychiatric: no anxiety Endocrine: no cold intolerance, no heat intolerance Hematologic/Lymphatic: no easy bruising Allergic/Immunologic: no urticaria Physical Examination Vital Signs Temp Pulse Resp BP Pulse Ox 98.3 F 64 18 106/59 93 02/11/20 12:16 02/11/20 12:16 02/11/20 12:16 02/11/20 12:16 02/11/20 12:16 General appearance: no acute distress HEENT: Positive: PERRL, Normocephaly, Mucus Membranes Moist Neck: Positive: neck supple, trachea midline Cardiac: Positive: Reg Rate and Rhythm, S1/S2 Lungs: Positive: Decreased Breath Sounds Neuro: Positive: Grossly Intact Abdomen: Negative: Tender Skin: Negative: Rash Musculoskeletal: No Pain Extremities: Absent: edema Results 02/12/20 06:46 02/14/20 04:39 Cardiac Enzymes 02/14/20 Range/Units 04:39 AST 41 H (5-40) units/L Comprehensive Metabolic Panel 02/13/20 02/14/20 Range/Units 13:58 04:39 Sodium 134 L 138 (137-145) mmol/L Potassium 4.5 4.5 (3.6-5.0) mmol/L Chloride 105.0 107.1 H (98-107) mmol/L Carbon Dioxide 18 L 18 L (22-30) mmol/L BUN 56 H 56 H (7-17) mg/dL Creatinine 3.3 H 3.3 H (0.7-1.2) mg/dL Glucose 185 H 104 H (65-100) mg/dL Calcium 8.3 L 8.3 L (8.4-10.2) mg/dL AST 41 H (5-40) units/L ALT 31 (7-56) units/L Alkaline Phosphatase 81 (35-129) units/L Total Protein 6.1 L (6.3-8.2) g/dL Albumin 2.8 L (3.9-5) g/dL - Imaging and Cardiology Echo: report reviewed EKG: report reviewed, image reviewed EKG interpretations - Telemetry EKG Rhythm: Sinus Rhythm - EKG Sinus rhythms and dysrhythmias: sinus rhythm Chamber hypertrophy or enlargement: left ventricular hypertro Assessment and Plan Acute HFrEF tte reviewed - EF 45-50%, LV mildly dilated, mild LVH, mod pleural effusion. Cont coreg. Will defer volume optimization to nephrology team. Chest pain Currently resolved. S/p lexiscan MPI stress test yesterday which was negative for ischemia, EF 35%. tte reviewed - EF 45-50%, LV mildly dilated, mild LVH, mod pleural effusion. Acute on chronic renal failure Nephrology following. Pleural effusion, left Pt is scheduled for thoracentesis. Sinus bradycardia Currently in NSR, HR 60 - 70s. SB with HR low 35bpm noted overnight while sleeping, no pauses noted. Reduce coreg dosage for HR optimization and increase amlodipine dosage for BP control. Cont to monitor on telemetry. Obtain thyroid profile. Hypertension Reduce coreg and increase amlodipine. Cont hydralazine. Gall stones Abdomen US pending. Hepatitis C Anemia The patient has been seen in conjunction with Dr. Sheets who agrees with the assessment and plan of care.
[2020-02-14] MEDS: FAMOTIDINE 10 MG TAB PO SCH ×2 (11:27→22:27)
[2020-02-14] MEDS: carvediloL 12.5 MG TAB PO SCH (11:27)
[2020-02-14] MEDS: ASPIRIN EC 81 MG TAB PO SCH (11:27)
[2020-02-14] MEDS: amLODIPine 5 MG TAB PO SCH (11:28)
[2020-02-14] MEDS: FUROSEMIDE 40 MG TAB PO SCH (11:49)
[2020-02-14] MEDS: amLODIPine 10 MG TAB PO SCH (11:55)
[2020-02-14] MEDS: carvediloL 6.25 MG TAB PO SCH ×2 (11:56→22:27)
--- NOTE | 2020-02-14 12:21 | Ultrasound Report ---
LIMITED RUQ ABDOMINAL ULTRASOUND INDICATION: chest pain. Gallstones with pericholecystic fluid. COMPARISON: CT abdomen from 02/11/2020. FINDINGS: Pancreas: Visualized portions show no significant abnormality. Abdominal Aorta: No significant abnormality. IVC: No significant abnormality. Liver: The liver measures 17.1 cm in length. No significant abnormality. Normal hepatopedal blood fl ow in the main portal vein. Gallbladder: Prominent cholelithiasis measuring 2.7 cm and slight distention on the gallbladder. Gall bladder wall thickness is upper limits of normal. Bile ducts: No significant abnormality. Common bile duct measures 6 mm. Right kidney: Nonobstructive nephrolithiasis is present. Free fluid: None. Additional Findings: None. IMPRESSION: 1. Cholelithiasis with distended gallbladder and wall thickness which is upper limits of normal. Find ings could be seen with evolving cholecystitis.. 2. Nonobstructive nephrolithiasis on the right kidney. 3. Hepatomegaly. Signer Name: Robert Clark MD Signed: 02/14/2020 12:16 PM Workstation Name: [id number]
--- NOTE | 2020-02-14 14:08 | Progress Note ---
Assessment and Plan /Left pleural effusion - ordered for thoracentesis -Could be from underlying CHF /Chest pain -appears to be atypical Cardiology consulted, currently resolved Status post stress test showed no reversible ischemia and low EF tte reviewed - EF 45-50%, LV mildly dilated, mild LVH, mod pleural effusion. We will continue aspirin statin and beta-millicent /Hypertension Continue antihypertensives Monitor blood pressure Adjust medications as necessary /Hyperlipidemia Continue statins /Acute kidney injury SHIVANI on CKD -likely from vasomotor nephropathy Nephrolgy consult appreciated /CHF (congestive heart failure) likely systolic dysfunction with acute exacerbation BNP [id number], tte reviewed - EF 45-50%, LV mildly dilated, mild LVH, mod pleural effusion. Cont coreg, Ordered IV Lasix, consulted cardiology /COPD (chronic obstructive pulmonary disease) continue bronchodilators /Cocaine abuse counseled, reduce beta-millicent dose /Hep C w/o coma, chronic Treat as outpatient /Gallstones, -Large gallstone seen on CT abdomen and pelvis - abdominal ultrasound ordered - pending /DVT prophylaxis On Heparin and GI prophylaxis 02/12: status post stress test today, ordered for thoracentesis. Cardiology consulted for possible CHF exacerbation 02/13: Pending paracentesis, 2D echo showed EF of 45%. Abdominal ultrasound pending Brief history: This is a 54 yo F with past medical history for hypertension, HepC, active smoker, who presents to [facility] ER with complaints of left sided chest pain and lef t flank pain for 1-2 days. CXR in ER showed cardiomegaly with new left pleural effusion, VQ scan showed low probability of PE, CT C/A/P confirmed cardiomegaly, pleural effusion. Labs showed elevated BUN/Cr at 71/4,8mg/dl for which renal consult is requested. pt is currently scheduled for thoracentesis. Pt underwent lexiscan MPI stress test which was negative for ischemia with EF 35% and thus cardiology has been consulted. Physical exam: GENERAL: Elderly female lying on bed appeared to be in no discomfort. HEENT: Normocephalic. Atraumatic. No conjunctival congestion or icterus. Patient has moist mucous membranes. NECK: Supple. Trachea midline. CHEST/LUNGS: Diminished breath sound auscultated bilaterally, breathing nonlabored. No wheezes HEART/CARDIOVASCULAR: Regular in rate and rhythm. S1 and S2 positive. ABDOMEN: Abdomen is soft, positive left epigastric tenderness. Patient has normal bowel sounds. SKIN: There is no rash. Warm and dry. NEURO: No focal motor deficit. Follows command. MUSCULOSKELETAL: No joint effusion or tenderness. EXTRIMITY: No edema, no cyanosis or clubbing. PSYCH: Cooperative. Subjective Date of service: 02/14/20 Principal diagnosis: SHIVANI,Chest pain Interval history: Patient seen and examined. Medical records and medication list reviewed. No acute event overnight noted by the RN. Patient complains of difficulty breathing on minimal ambulation. Status post stress test today Patient is tolerating diet Discussed plan of care at bedside with patient. Objective - Constitutional Vitals: Vital Signs - 12hr 02/14/20 02/14/20 02/14/20 04:16 08:04 08:05 Temperature 98.2 F 97.9 F Pulse Rate 63 64 65 Respiratory 17 18 Rate Blood Pressure 162/85 Blood Pressure 155/82 [Right] O2 Sat by Pulse 93 94 94 Oximetry 02/14/20 02/14/20 02/14/20 11:27 11:28 11:55 Temperature Pulse Rate 73 73 73 Respiratory Rate Blood Pressure Blood Pressure [Right] O2 Sat by Pulse Oximetry 02/14/20 11:56 Temperature Pulse Rate 73 Respiratory Rate Blood Pressure Blood Pressure [Right] O2 Sat by Pulse Oximetry - Labs CBC & Chem 7: 02/12/20 06:46 02/15/20 07:59 Labs: Abnormal lab results 02/13/20 02/14/20 Range/Units 13:58 04:39 Sodium 134 L (137-145) mmol/L Chloride 107.1 H (98-107) mmol/L Carbon Dioxide 18 L 18 L (22-30) mmol/L BUN 56 H 56 H (7-17) mg/dL Creatinine 3.3 H 3.3 H (0.7-1.2) mg/dL Glucose 185 H 104 H (65-100) mg/dL Calcium 8.3 L 8.3 L (8.4-10.2) mg/dL AST 41 H (5-40) units/L Total Protein 6.1 L (6.3-8.2) g/dL Albumin 2.8 L (3.9-5) g/dL
[2020-02-14] MEDS: hydrALAZINE 100 MG TAB PO SCH ×3 (14:38→22:28)
[2020-02-14] MEDS: oxyCODONE /ACETAMINOPHEN 5-325MG TAB PO PRN ×2 (16:18→22:29)
--- NOTE | 2020-02-14 19:21 | Progress Note ---
Assessment and Plan - Patient Problems (1) Acute on chronic renal failure Current Visit: Yes Status: Acute Qualifiers: Acute renal failure type: unspecified Chronic kidney disease stage: stage 4 (severe) Qualified Code(s): N17.9 - Acute kidney failure, unspecified; N18.4 - Chronic kidney disease, stage 4 (severe) Plan to address problem: acute kidney injury superimposed on chronic kidney disease. Chronic kidney disease presumed secondary to hypertensive nephrosclerosis. Acute kidney injury probably Pre-renal azotemia ? acute cardiorenal syndrome. kidney function was worse yesterday but is not significantly changed from yesterday to today.. Follow-up electrolytes and renal function. (2) Gallstones Current Visit: Yes Status: Acute Plan to address problem: gallstones with pericholecystic fluid. Pain worse on lying on your right side ? associated with this. We will get limited right upper quadrant abdominal ultrasound. consider HIDA scan depending on the results (3) Hypertensive chronic kidney disease with stage 1 through stage 4 chronic kidney disease, or unspecified chronic kidney disease Current Visit: Yes Status: Acute Plan to address problem: Continue current medications (4) Pleural effusion, left Current Visit: Yes Status: Acute Plan to address problem: follow-up chest x-ray in the morning (5) CHF (congestive heart failure) Current Visit: Yes Status: Chronic Qualifiers: Heart failure type: combined systolic and diastolic Plan to address problem: appears clinically euvolemic. Follow-up 2D echo (6) COPD (chronic obstructive pulmonary disease) Current Visit: Yes Status: Chronic Qualifiers: Emphysema type: unspecified Plan to address problem: continue bronchodilator treatments (7) Hep C w/o coma, chronic Current Visit: Yes Status: Chronic Plan to address problem: follow-up with [facility] as an outpatient (8) Hyperlipidemia Current Visit: Yes Status: Chronic Qualifiers: Hyperlipidemia type: mixed hyperlipidemia Qualified Code(s): E78.2 - Mixed hyperlipidemia Plan to address problem: continue treatment Subjective Date of service: 02/14/20 Principal diagnosis: SHIVANI,Chest pain Interval history: Patient seen lying in bed this morning. She still complaints of midsternal chest pain and pain in the left flank. denies shortness of breath. No nausea or vomiting Objective - Exam Narrative Exam: middle-age female lying in bedin no acute distress HEENT: Normocephalic atraumatic, pupils equal round reactive to light Normal oropharynx, Neck: Supple, no venous distention, no goiter CVS: S1S2 RRR no murmur, rub or gallop Lungs: Clear to auscultation, no use of accessory muscles of respiration Abdomen: Full, soft, nontender, no organomegaly no bruit, bowel sounds are present Extremities: No edema, no cyanosis or clubbing Urinary: Deferred Musculo-skeletal: No joint deformities or swelling Neuro: Awake, alert, no focal deficits - Vital Signs Vital signs: Vital Signs - 12hr 02/14/20 02/14/20 02/14/20 08:04 08:05 10:00 Temperature 97.9 F Pulse Rate 64 65 65 Respiratory 18 16 Rate Blood Pressure 162/85 Blood Pressure [Right] O2 Sat by Pulse 94 94 94 Oximetry 02/14/20 02/14/20 02/14/20 11:27 11:28 11:55 Temperature Pulse Rate 73 73 73 Respiratory Rate Blood Pressure Blood Pressure [Right] O2 Sat by Pulse Oximetry 02/14/20 02/14/20 02/14/20 11:56 14:32 16:18 Temperature Pulse Rate 73 56 L Respiratory 18 18 Rate Blood Pressure Blood Pressure 123/65 [Right] O2 Sat by Pulse Oximetry - Lab 02/12/20 06:46 02/14/20 04:39 Most recent lab results Calcium 8.3 mg/dL (8.4-10.2) L 02/14/20 04:39 Magnesium 2.40 mg/dL (1.7-2.3) H 02/11/20 12:55 Urine Creatinine 63.7 mg/dL (0.1-20.0) H 02/12/20 03:20 Urine Sodium 74 mmol/L 02/12/20 03:20 Urine Total Protein 53 mg/dL (5-11.8) H 02/12/20 03:20 Medications & Allergies - Medications Allergies/Adverse Reactions: Allergies No Known Allergies Allergy (Verified 06/21/19 16:18) Home Medications: Home Medications Medication Instructions Recorded Confirmed Last Taken Type Aspirin EC [Halfprin EC] 81 mg PO QDAY #30 tablet. 06/23/19 02/11/20 Unknown Rx carvediloL [Coreg] 12.5 mg PO BID #60 tablet 06/23/19 02/11/20 Unknown Rx hydrALAZINE [Apresoline TAB] 100 mg PO Q8HR #90 tab 06/23/19 02/11/20 Unknown Rx AtorvaSTATin 40 mg PO DAILY 02/11/20 02/11/20 Unknown History Lasix TAB 40 mg PO DAILY 02/11/20 02/11/20 Unknown History Lisinopril 2.5 mg PO DAILY 02/11/20 02/11/20 Unknown History amLODIPine 5 mg PO QDAY 02/11/20 02/11/20 Unknown History Active Medications: Generic Name Dose Route Start Last Admin Trade Name Freq PRN Reason Stop Dose Admin Acetaminophen 650 mg 02/11/20 22:33 Tylenol PO Q4H PRN Pain MILD(1-3)/Fever >100.5/[facility] Amlodipine Besylate 10 mg 02/14/20 12:00 02/14/20 11:55 Amlodipine PO Not Given QDAY CORNEL[facility] Aspirin 81 mg 02/12/20 10:00 02/14/20 11:27 Halfprin Ec PO 81 mg QDAY [facility] Administration Atorvastatin Calcium 40 mg 02/12/20 10:00 02/14/20 11:27 Lipitor PO 40 mg DAILY [facility] Administration Carvedilol 6.25 mg 02/14/20 12:00 02/14/20 11:56 Coreg PO Not Given BID [facility] Famotidine 10 mg 02/12/20 10:00 02/14/20 11:27 Pepcid PO 10 mg BID [facility] Administration Furosemide 40 mg 02/12/20 10:00 02/14/20 11:49 Lasix PO 40 mg DAILY [facility] Administration Hydralazine HCl 100 mg 02/11/20 23:00 02/14/20 14:38 Apresoline PO 100 mg Q8HR COR[facility] Administration Hydromorphone HCl 0.5 mg 02/11/20 22:33 Dilaudid IV Q3H PRN Pain , Severe (7-10) Sodium Chloride 1,000 mls @ 75 mls/hr 02/13/20 14:30 02/14/20 19:09 Nacl 0.9% 1000 Ml IV 75 mls/hr DIRECT [facility] Administration Ondansetron HCl 4 mg 02/11/20 22:33 Zofran IV Q8H PRN Nausea And Vomiting Oxycodone/Acetaminophen 1 tab 02/11/20 22:33 04/28/20 16:18 Percocet 5/325 PO 1 tab Q6H PRN Administration Pain, Moderate (4-6) Sodium Chloride 10 ml 02/11/20 23:00 02/14/20 11:49 Sodium Chloride Flush Syringe 10 Ml IV 10 ml BID [facility] Administration Sodium Chloride 10 ml 02/11/20 22:33 Sodium Chloride Flush Syringe 10 Ml IV PRN PRN LINE FLUSH
[2020-02-15] MEDS: hydrALAZINE 100 MG TAB PO SCH ×3 (06:19→21:43)
[2020-02-15] MEDS: SODIUM CHLORIDE 0.9% 1000 ML 1,000 ML IV SCH ×2 (06:41→21:43)
[2020-02-15 09:30] LABS: Calcium 8.7 mg/dL (8.4-10.2)
--- NOTE | 2020-02-15 09:48 | Progress Note ---
Assessment and Plan Acute HFrEF tte reviewed - EF 45-50%, LV mildly dilated, mild LVH, mod pleural effusion. Cont coreg. Will defer volume optimization to nephrology team. Chest pain Currently resolved. S/p lexiscan MPI stress test 02/12 which was negative for ischemia, EF 35%. tte reviewed - EF 45-50%, LV mildly dilated, mild LVH, mod pleural effusion. Acute on chronic renal failure Nephrology following. Pleural effusion, left Pt is scheduled for thoracentesis tomorrow. Sinus bradycardia Currently in NSR, HR 60 - 70s. SB with HR low 44bpm noted overnight while sleeping, no pauses noted. Cont present cardiac management. Cont to monitor on telemetry. Hypertension Cont coreg, amlodipine, hydralazine. Gall stones Abd US showed cholelithiasis with distended gallbladder and wall thickness, ? evolving cholecystitis. Per primary. Hepatitis C Anemia The patient has been seen in conjunction with Dr. Sheets who agrees with the assessment and plan of care. Subjective Date of service: 02/15/20 Principal diagnosis: SHIVANI,Chest pain Interval history: pt lying flat in bed comfortably, feeling better. in SR on tele with SB noted overnight, HR low 44bpm. Objective Last Vital Signs Temp 97.5 F L 02/15/20 07:35 Pulse 60 02/15/20 07:35 Resp 18 02/15/20 07:35 BP 165/76 02/15/20 07:35 Pulse Ox 95 02/15/20 07:35 - Physical Examination General: No Apparent Distress HEENT: Positive: PERRL, Normocephaly, Mucus Membranes Moist Neck: Positive: neck supple, trachea midline Cardiac: Positive: Reg Rate and Rhythm, S1/S2 Lungs: Positive: Decreased Breath Sounds Neuro: Positive: Grossly Intact Abdomen: Negative: Tender Skin: Negative: Rash Musculoskeletal: No Pain Extremities: Absent: edema - Labs and Meds Comprehensive Metabolic Panel 02/15/20 Range/Units 07:59 Sodium 138 (137-145) mmol/L Potassium 5.2 H (3.6-5.0) mmol/L Chloride 106.7 (98-107) mmol/L Carbon Dioxide 20 L (22-30) mmol/L BUN 49 H (7-17) mg/dL Creatinine 3.2 H (0.7-1.2) mg/dL Glucose 109 H (65-100) mg/dL Calcium 8.7 (8.4-10.2) mg/dL - Imaging and Cardiology EKG: report reviewed, image reviewed Echo: report reviewed - EKG Sinus rhythms and dysrhythmias: sinus rhythm Chamber hypertrophy or enlargement: left ventricular hypertro
[2020-02-15] MEDS: FUROSEMIDE 40 MG TAB PO SCH (09:55)
[2020-02-15] MEDS: carvediloL 6.25 MG TAB PO SCH ×2 (09:55→21:43)
[2020-02-15] MEDS: ASPIRIN EC 81 MG TAB PO SCH (09:56)
[2020-02-15] MEDS: FAMOTIDINE 10 MG TAB PO SCH ×2 (09:56→21:43)
[2020-02-15] MEDS: amLODIPine 10 MG TAB PO SCH (09:56)
[2020-02-15] MEDS: SODIUM BICARBONATE 650 MG TAB PO SCH ×2 (10:56→21:43)
[2020-02-15] MEDS ORDERED: SODIUM POLYSTYRENE 15 GM/60 ML ORAL LIQD PO SCH (11:00)
--- NOTE | 2020-02-15 12:46 | Progress Note ---
Assessment and Plan /Left pleural effusion - ordered for thoracentesis -Could be from underlying CHF /Chest pain -appears to be atypical Cardiology consulted, currently resolved Status post stress test showed no reversible ischemia and low EF tte reviewed - EF 45-50%, LV mildly dilated, mild LVH, mod pleural effusion. We will continue aspirin statin and beta-millicent /Hypertension Continue antihypertensives Monitor blood pressure Adjust medications as necessary /Hyperlipidemia Continue statins /Acute kidney injury SHIVANI on CKD -likely from vasomotor nephropathy Nephrolgy consult appreciated /CHF (congestive heart failure) likely systolic dysfunction with acute exacerbation BNP [id number], tte reviewed - EF 45-50%, LV mildly dilated, mild LVH, mod pleural effusion. Cont coreg, Ordered IV Lasix, consulted cardiology /COPD (chronic obstructive pulmonary disease) continue bronchodilators /Cocaine abuse counseled, reduce beta-millicent dose /Hep C w/o coma, chronic Treat as outpatient /Gallstones, -Large gallstone seen on CT abdomen and pelvis - abdominal ultrasound ordered showed possible cholecystitis -We will consult general surgery /DVT prophylaxis On Heparin and GI prophylaxis 02/12: status post stress test today, ordered for thoracentesis. Cardiology consulted for possible CHF exacerbation 02/13: Pending paracentesis, 2D echo showed EF of 45%. Abdominal ultrasound pending 02/14 pending thoracentesis, will follow result, continue current management, monitor BMP to monitor renal function, will also consult general surgery for abnormal abdominal ultrasound result Brief history: This is a 54 yo F with past medical history for hypertension, HepC, active smoker, who presents to [facility] ER with complaints of left sided chest pain and left flank pain for 1-2 days. CXR in ER showed cardiomegaly with new left pleural effusion, VQ scan showed low probability of PE, CT C/A/P confirmed cardiomegaly, pleural effusion. Labs showed elevated BUN/Cr at 71/4,8mg/dl for which renal consult is requested. pt is currently scheduled for thoracentesis. Pt underwent lexiscan MPI stress test which was negative for ischemia with EF 35% and thus cardiology has been consulted. Physical exam: GENERAL: Elderly female lying on bed appeared to be in no discomfort. HEENT: Normocephalic. Atraumatic. No conjunctival congestion or icterus. Patient has moist mucous membranes. NECK: Supple. Trachea midline. CHEST/LUNGS: Diminished breath sound auscultated bilaterally, breathing n onlabored. No wheezes HEART/CARDIOVASCULAR: Regular in rate and rhythm. S1 and S2 positive. ABDOMEN: Abdomen is soft, positive left epigastric tenderness. Patient has normal bowel sounds. SKIN: There is no rash. Warm and dry. NEURO: No focal motor deficit. Follows command. MUSCULOSKELETAL: No joint effusion or tenderness. EXTRIMITY: No edema, no cyanosis or clubbing. PSYCH: Cooperative. Subjective Date of service: 02/15/20 Principal diagnosis: SHIVANI,Chest pain Interval history: Patient seen and examined. Medical records and medication list reviewed. No acute event overnight noted by the RN. Patient complains of difficulty breathing on minimal ambulation. Patient is tolerating diet, pending thoracentesis Discussed plan of care at bedside with patient. Objective - Constitutional Vitals: Vital Signs - 12hr 02/15/20 02/15/20 02/15/20 03:21 07:35 10:00 Temperature 97.9 F 97.5 F L Pulse Rate 57 L 60 69 Respiratory 16 18 Rate Blood Pressure 140/75 165/76 O2 Sat by Pulse 95 95 Oximetry 02/15/20 11:46 Temperature 98.0 F Pulse Rate 60 Respiratory 18 Rate Blood Pressure 148/68 O2 Sat by Pulse 90 Oximetry - Labs CBC & Chem 7: 02/12/20 06:46 02/17/20 08:34 Labs: Abnormal lab results 02/15/20 Range/Units 07:59 Potassium 5.2 H (3.6-5.0) mmol/L Carbon Dioxide 20 L (22-30) mmol/L BUN 49 H (7-17) mg/dL Creatinine 3.2 H (0.7-1.2) mg/dL Glucose 109 H (65-100) mg/dL
--- NOTE | 2020-02-15 14:00 | Consultation ---
History of Present Illness Consult date: 02/15/20 Chief complaint: Gallstone - History of present illness History of present illness: 54-year-old female with history of kidney stones, cholelithiasis who presented to the emergency room for coughing and left-sided pain. The pain is localized to the left chest and flank area. She states that the pain has slightly improved since being in the hospital. The patient had a CT scan performed which incidentally revealed a large gallstone. The patient states that she is known about having gallstones. She denies any right upper quadrant pain, abdominal pain associated with food, nausea, vomiting, diarrhea, constipation. She states that she has never been symptomatic from her gallstones. An abdominal ultrasound was obtained to further evaluate the gallbladder which was read as possible early acute cholecystitis. Surgery was consulted for evaluation. Past History Past Medical History: COPD, hypertension, renal failure, other (as per HPI) Past Surgical History: Other (Ectopic , surgery for kidney stones) Social history: smoking. denies: alcohol abuse, prescription drug abuse Family history: hypertension Medications and Allergies Allergies Allergy/AdvReac Type Severity Reaction Status Date / Time No Known Allergies Allergy Verified 06/21/19 16:18 Home Medications Medication Instructions Recorded Confirmed Last Taken Type Aspirin EC [Halfprin EC] 81 mg PO QDAY #30 tablet. 06/23/19 02/11/20 Unknown R x carvediloL [Coreg] 12.5 mg PO BID #60 tablet 06/23/19 02/11/20 Unknown Rx hydrALAZINE [Apresoline TAB] 100 mg PO Q8HR #90 tab 06/23/19 02/11/20 Unknown Rx AtorvaSTATin 40 mg PO DAILY 02/11/20 02/11/20 Unknown History Lasix TAB 40 mg PO DAILY 02/11/20 02/11/20 Unknown History Lisinopril 2.5 mg PO DAILY 02/11/20 02/11/20 Unknown History amLODIPine 5 mg PO QDAY 02/11/20 02/11/20 Unknown History Active Meds: Active Medications Acetaminophen (Tylenol) 650 mg PO Q4H PRN PRN Reason: Pain MILD(1-3)/Fever >100.5/[facility] Amlodipine Besylate (Amlodipine) 10 mg PO QDAY CORNELIA Last Admin: 02/15/20 09:56 Dose: 10 mg Documented by: Aspirin (Halfprin Ec) 81 mg PO QDAY [facility] Last Admin: 02/15/20 09:56 Dose: 81 mg Documented by: Atorvastatin Calcium (Lipitor) 40 mg PO DAILY [facility] Last Admin: 02/15/20 09:56 Dose: 40 mg Documented by: Carvedilol (Coreg) 6.25 mg PO BID [facility] Last Admin: 02/15/20 09:55 Dose: 6.25 mg Documented by: Famotidine (Pepcid) 10 mg PO BID [facility] Last Admin: 02/15/20 09:56 Dose: 10 mg Documented by: Furosemide (Lasix) 40 mg PO DAILY [facility] Last Admin: 02/15/20 09:55 Dose: 40 mg Documented by: Hydralazine HCl (Apresoline) 100 mg PO Q8HR [facility] Last Admin: 02/15/20 06:19 Dose: 100 mg Documented by: Hydromorphone HCl (Dilaudid) 0.5 mg IV Q3H PRN PRN Reason: Pain , Severe (7-10) Sodium Chloride (Nacl 0.9% 1000 Ml) 1,000 mls @ 50 mls/hr IV DIRECT [facility] Last Admin: 02/15/20 06:41 Dose: 75 mls/hr Documented by: Ondansetron HCl (Zofran) 4 mg IV Q8H PRN PRN Reason: Nausea And Vomiting Last Admin: 02/14/20 22:33 Dose: 4 mg Documented by: Oxycodone/Acetaminophen (Percocet 5/325) 1 tab PO Q6H PRN PRN Reason: Pain, Moderate (4-6) Last Admin: 02/14/20 22:29 Dose: 1 tab Documented by: Sodium Bicarbonate (Sodium Bicarbonate) 650 mg PO BID [facility] Last Admin: 02/15/20 10:56 Dose: 650 mg Documented by: Sodium Chloride (Sodium Chloride Flush Syringe 10 Ml) 10 ml IV BID [facility] Last Admin: 02/15/20 09:56 Dose: 10 ml Documented by: Sodium Chloride (Sodium Chloride Flush Syringe 10 Ml) 10 ml IV PRN PRN PRN Reason: LINE FLUSH Review of Systems All systems: negative (10 point review of systems was performed and negative except for that listed in HPI) Exam Vital Signs Temp Pulse Resp BP Pulse Ox 98.3 F 64 18 106/59 93 02/11/20 12:16 02/11/20 12:16 02/11/20 12:16 02/11/20 12:16 02/11/20 12:16 Narrative exam: Gen.: Awake, alert, oriented 3. No apparent distress ENT: Trachea midline. No lymphadenopathy. No scleral icterus or conjunctival pallor CV: S1, S2 present Respiratory: No audible wheezes Abdomen: Soft, nondistended, nontender. No rebound, rigidity, guarding Extremities: No clubbing, cyanosis, edema Results - Labs 02/12/20 06:46 02/15/20 07:59 Abnormal lab results 02/15/20 Range/Units 07:59 Potassium 5.2 H (3.6-5.0) mmol/L Carbon Dioxide 20 L (22-30) mmol/L BUN 49 H (7-17) mg/dL Creatinine 3.2 H (0.7-1.2) mg/dL Glucose 109 H (65-100) mg/dL Diabetes panel 02/15/20 Range/Units 07:59 Sodium 138 (137-145) mmol/L Potassium 5.2 H (3.6-5.0) mmol/L Chloride 106.7 (98-107) mmol/L Carbon Dioxide 20 L (22-30) mmol/L BUN 49 H (7-17) mg/dL Creatinine 3.2 H (0.7-1.2) mg/dL Glucose 109 H (65-100) mg/dL Calcium 8.7 (8.4-10.2) mg/dL Thyroid panel 02/14/20 Range/Units 13:33 TSH 1.480 (0.270-4.200) mlU/mL Calcium panel 02/15/20 Range/Units 07:59 Calcium 8.7 (8.4-10.2) mg/dL Pituitary panel 02/14/20 02/15/20 Range/Units 13:33 07:59 Sodium 138 (137-145) mmol/L Potassium 5.2 H (3.6-5.0) mmol/L Chloride 106.7 (98-107) mmol/L Carbon Dioxide 20 L (22-30) mmol/L BUN 49 H (7-17) mg/dL Creatinine 3.2 H (0.7-1.2) mg/dL Glucose 109 H (65-100) mg/dL Calcium 8.7 (8.4-10.2) mg/dL TSH 1.480 (0.270-4.200) mlU/mL Adrenal panel 02/15/20 Range/Units 07:59 Sodium 138 (137-145) mmol/L Potassium 5.2 H (3.6-5.0) mmol/L Chloride 106.7 (98-107) mmol/L Carbon Dioxide 20 L (22-30) mmol/L BUN 49 H (7-17) mg/dL Creatinine 3.2 H (0.7-1.2) mg/dL Glucose 109 H (65-100) mg/dL Calcium 8.7 (8.4-10.2) mg/dL - Imaging CT scan - abdomen: report reviewed, image reviewed CT scan - pelvis: report reviewed, image reviewed US - abdomen: report reviewed, image reviewed Assessment and Plan 54-year-old female with cholelithiasis CT scan and right upper quadrant ultrasound reviewed. Images reviewed independently. There is no evidence of acute cholecystitis on imaging and the patient is completely asymptomatic. She is tolerating a diet without abdominal pain. Plan: 1. continue diet as tolerated 2. No acute surgical intervention at this time for asymptomatic cholelithiasis. Will sign off. Thank you for this consultation. Please call with any questions or concerns.
--- NOTE | 2020-02-15 15:47 | Progress Note ---
Assessment and Plan - Patient Problems (1) Acute on chronic renal failure Current Visit: Yes Status: Acute Qualifiers: Acute renal failure type: unspecified Chronic kidney disease stage: stage 4 (severe) Qualified Code(s): N17.9 - Acute kidney failure, unspecified; N18.4 - Chronic kidney disease, stage 4 (severe) Plan to address problem: acute kidney injury superimposed on chronic kidney disease. Chronic kidney disease presumed secondary to hypertensive nephrosclerosis. Acute kidney injury probably Pre-renal azotemia ? acute cardiorenal syndrome. kidney function is a bit better. Follow-up electrolytes and renal function. (2) Gallstones Current Visit: Yes Status: Acute Plan to address problem: gallstones with pericholecystic fluid imaging. Ultrasound confirmed a gallstone. Surgery input appreciated. Asymptomatic cholelithiasis and no treatment is indicated at this point. (3) Hypertensive chronic kidney disease with stage 1 through stage 4 chronic kidney disease, or unspecified chronic kidney disease Current Visit: Yes Status: Acute Plan to address problem: Continue current medications (4) Pleural effusion, left Current Visit: Yes Status: Acute Plan to address problem: follow-up chest x-ray in the morning (5) CHF (congestive heart failure) Current Visit: Yes Status: Chronic Qualifiers: Heart failure type: combined systolic and diastolic Plan to address problem: appears clinically euvolemic. 2D echo shows mildly reduced ejection fraction at 45-50%. (6) COPD (chronic obstructive pulmonary disease) Current Visit: Yes Status: Chronic Qualifiers: Emphysema type: unspecified Plan to address problem: continue bronchodilator treatments (7) Hep C w/o coma, chronic Current Visit: Yes Status: Chronic Plan to address problem: follow-up with county administrator as an outpatient (8) Hyperlipidemia Current Visit: Yes Status: Chronic Qualifiers: Hyperlipidemia type: mixed hyperlipidemia Qualified Code(s): E78.2 - Mixed hyperlipidemia Plan to address problem: continue treatment Subjective Date of service: 02/15/20 Principal diagnosis: SHIVANI,Chest pain Interval history: Patient seen lying in bed this morning. She still complaints of midsternal chest pain and pain in the left flank. denies shortness of breath. No nausea or vomiting Objective - Exam Narrative Exam: middle-age female lying in bedin no acute distress HEENT: Normocephalic atraumatic, pupils equal round reactive to light Normal oropharynx, Neck: Supple, no venous distention, no goiter CVS: S1S2 RRR no murmur, rub or gallop Lungs: Clear to auscultation, no use of accessory muscles of respiration Abdomen: Full, soft, nontender, no organomegaly no bruit, bowel sounds are present Extremities: No edema, no cyanosis or clubbing Urinary: Deferred Musculo-skeletal: No joint deformities or swelling Neuro: Awake, alert, no focal deficits - Vital Signs Vital signs: Vital Signs - 12hr 02/15/20 02/15/20 02/15/20 07:35 10:00 11:46 Temperature 97.5 F L 98.0 F Pulse Rate 60 69 60 Respiratory 18 18 Rate Blood Pressure 165/76 148/68 O2 Sat by Pulse 95 90 Oximetry - Lab 02/12/20 06:46 02/15/20 07:59 Most recent lab results Calcium 8.7 mg/dL (8.4-10.2) 02/15/20 07:59 Magnesium 2.40 mg/dL (1.7-2.3) H 02/11/20 12:55 Urine Creatinine 63.7 mg/dL (0.1-20.0) H 02/12/20 03:20 Urine Sodium 74 mmol/L 02/12/20 03:20 Urine Total Protein 53 mg/dL (5-11.8) H 02/12/20 03:20 Medications & Allergies - Medications Allergies/Adverse Reactions: Allergies No Known Allergies Allergy (Verified 06/21/19 16:18) Home Medications: Home Medications Medication Instructions Recorded Confirmed Last Taken Type Aspirin EC [Halfprin EC] 81 mg PO QDAY #30 tablet. 06/23/19 02/11/20 Unknown Rx carvediloL [Coreg] 12.5 mg PO BID #60 tablet 06/23/19 02/11/20 Unknown Rx hydrALAZINE [Apresoline TAB] 100 mg PO Q8HR #90 tab 06/23/19 02/11/20 Unknown Rx AtorvaSTATin 40 mg PO DAILY 02/11/20 02/11/20 Unknown History Lasix TAB 40 mg PO DAILY 02/11/20 02/11/20 Unknown History Lisinopril 2.5 mg PO DAILY 02/11/20 02/11/20 Unknown History amLODIPine 5 mg PO QDAY 02/11/20 02/11/20 Unknown History Active Medications: Generic Name Dose Route Start Last Admin Trade Name Freq PRN Reason Stop Dose Admin Acetaminophen 650 mg 02/11/20 22:33 Tylenol PO Q4H PRN Pain MILD(1-3)/Fever >100.5/[place] Amlodipine Besylate 10 mg 02/14/20 12:00 02/15/20 09:56 Amlodipine PO 10 mg QDAY CORNELIA Administration Aspirin 81 mg 02/12/20 10:00 02/15/20 09:56 Halfprin Ec PO 81 mg QDAY CORNELIA Administration Atorvastatin Calcium 40 mg 02/12/20 10:00 02/15/20 09:56 Lipitor PO 40 mg DAILY CORNELIA Administration Carvedilol 6.25 mg 02/14/20 12:00 02/15/20 09:55 Coreg PO 6.25 mg BID CORNELIA Administration Famotidine 10 mg 02/12/20 10:00 02/15/20 09:56 Pepcid PO 10 mg BID CORNELIA Administration Furosemide 40 mg 02/12/20 10:00 02/15/20 09:55 Lasix PO 40 mg DAILY CORNELIA Administration Hydralazine HCl 100 mg 02/11/20 23:00 02/15/20 14:23 Apresoline PO 100 mg Q8HR CORNELIA Administration Hydromorphone HCl 0.5 mg 02/11/20 22:33 Dilaudid IV Q3H PRN Pain , Severe (7-10) Sodium Chloride 1,000 mls @ 50 mls/hr 02/13/20 14:30 02/15/20 06:41 Nacl 0.9% 1000 Ml IV 75 mls/hr DIRECT CORNELIA Administration Ondansetron HCl 4 mg 02/11/20 22:33 02/14/20 22:33 Zofran IV 4 mg Q8H PRN Administration Nausea And Vomiting Oxycodone/Acetaminophen 1 tab 02/11/20 22:33 02/14/20 22:29 Percocet 5/325 PO 1 tab Q6H PRN Administration Pain, Moderate (4-6) Sodium Bicarbonate 650 mg 02/15/20 11:00 02/15/20 10:56 Sodium Bicarbonate PO 650 mg BID CORNELIA Administration Sodium Chloride 10 ml 02/11/20 23:00 02/15/20 09:56 Sodium Chloride Flush Syringe 10 Ml IV 10 ml BID CORNELIA Administration Sodium Chloride 10 ml 02/11/20 22:33 Sodium Chloride Flush Syringe 10 Ml IV PRN PRN LINE FLUSH
[2020-02-15] MEDS: oxyCODONE /ACETAMINOPHEN 5-325MG TAB PO PRN (18:18)
[2020-02-16] MEDS: oxyCODONE /ACETAMINOPHEN 5-325MG TAB PO PRN ×4 (00:23→19:26)
[2020-02-16 04:50] LABS: Alanine Aminotransferase 52 units/L (7-56); Albumin 2.6 g/dL (3.9-5); BUN/Creatinine Ratio 16; Blood Urea Nitrogen 47 mg/dL (7-17); Calcium 8.6 mg/dL (8.4-10.2); Hemolysis Index 1
[2020-02-16 04:53] LABS: Bilirubin,Direct < 0.2 mg/dL (0-0.2)
[2020-02-16] MEDS: hydrALAZINE 100 MG TAB PO SCH ×3 (06:05→21:24)
--- NOTE | 2020-02-16 09:04 | Procedure Note ---
Date of procedure: 02/16/20 Pre-op diagnosis: left pleural effusion Post-op diagnosis: same Procedure: US thoracentesis, left Findings: moderate left pl eff Anesthesia: local Surgeon: CRISTIANA VANG Estimated blood loss: none Pathology: list (120cc) Specimen disposition: to lab Condition: stable Disposition: floor
--- NOTE | 2020-02-16 09:09 | Ultrasound Report ---
Ultrasound-guided thoracentesis HISTORY: left pleural effusion. COMPARISON: CT chest dated 02/11/2020 PROCEDURE: The risks (including but not limited to bleeding, infection, and pneumothorax) and benefi ts were explained to the patient and informed consent was obtained. A time out procedure was perform ed. Ultrasound was used to evaluate the left pleural effusion and locate the optimal site for needle entr y. Once the skin was marked, the procedure site was prepped and draped in the usual sterile fashion and lidocaine was used for local anesthesia. A skin castro was made and a 6-Bengali thoracentesis cristofer ter was placed. The patient was monitored closely throughout the procedure, and a total of 700 mL of blood-tinged fluid was aspirated. Samples were sent to the lab for further evaluation per the the [facility] clinicians orders. The patient tolerated the procedure well with no complications. A post-procedure chest x-ray was imm ediately ordered. IMPRESSION: Successful thoracentesis as above with a total of 700 mL of blood-tinged fluid aspirated. Signer Name: Tevin Pickett Jr, MD Signed: 02/16/2020 9:05 AM Workstation Name: [id number]
--- NOTE | 2020-02-16 09:35 | Progress Note ---
Assessment and Plan Acute HFrEF tte reviewed - EF 45-50%, LV mildly dilated, mild LVH, mod pleural effusion. Cont coreg. Will defer volume optimization to nephrology team. Anticipate d/c from cardiac perspective within next 24-48Hr. Chest pain Currently resolved. S/p lexiscan MPI stress test 02/12 which was negative for ischemia, EF 35%. tte reviewed - EF 45-50%, LV mildly dilated, mild LVH, mod pleural effusion. Acute on chronic renal failure Renal indices improving. Nephrology following. Pleural effusion, left S/p thoracentesis today with 700mL blood-tinged fluid aspirated. Sinus bradycardia Currently in NSR, HR 60 - 70s. SB overnight while sleeping, no pauses noted. Cont present cardiac management. Cont to monitor on telemetry. Hypertension Cont coreg, amlodipine, hydralazine. Gall stones Surgery consultation noted. Per primary. Hepatitis C Anemia The patient has been seen in conjunction with Dr. Sheets who agrees with the assessment and plan of care. Subjective Date of service: 02/16/20 Principal diagnosis: SHIVANI,Chest pain Interval history: pt lying flat in bed comfortably, feeling better. s/p thoracentesis this AM. in SR on tele with SB noted overnight. Objective Last Vital Signs Temp 97.5 F L 02/16/20 07:28 Pulse 59 L 02/16/20 07:28 Resp 18 02/16/20 07:28 BP 151/67 02/16/20 07:28 Pulse Ox 93 02/16/20 07:28 - Physical Examination General: No Apparent Distress HEENT: Positive: PERRL, Normocephaly, Mucus Membranes Moist Neck: Positive: neck supple, trachea midline Cardiac: Positive: Reg Rate and Rhythm, S1/S2 Lungs: Positive: Decreased Breath Sounds Neuro: Positive: Grossly Intact Abdomen: Negative: Tender Skin: Negative: Rash Musculoskeletal: No Pain Extremities: Absent: edema - Labs and Meds Cardiac Enzymes 02/16/20 Range/Units 03:56 AST 73 H (5-40) units/L Comprehensive Metabolic Panel 02/16/20 Range/Units 03:56 Sodium 138 (137-145) mmol/L Potassium 4.3 (3.6-5.0) mmol/L Chloride 106.4 (98-107) mmol/L Carbon Dioxide 19 L (22-30) mmol/L BUN 47 H (7-17) mg/dL Creatinine 3.0 H (0.7-1.2) mg/dL Glucose 99 (65-100) mg/dL Calcium 8.6 (8.4-10.2) mg/dL Direct Bilirubin < 0.2 (0-0.2) mg/dL Indirect Bilirubin 0.0 mg/dL AST 73 H (5-40) units/L ALT 52 (7-56) units/L Alkaline Phosphatase 91 (35-129) units/L Total Protein 6.0 L (6.3-8.2) g/dL Albumin 2.6 L (3.9-5) g/dL - Imaging and Cardiology EKG: report reviewed, image reviewed Echo: report reviewed - EKG Sinus rhythms and dysrhythmias: sinus rhythm Chamber hypertrophy or enlargement: left ventricular hypertro
[2020-02-16] MEDS: FAMOTIDINE 10 MG TAB PO SCH ×2 (10:25→21:25)
[2020-02-16] MEDS: SODIUM BICARBONATE 650 MG TAB PO SCH ×2 (10:25→21:24)
[2020-02-16] MEDS: carvediloL 6.25 MG TAB PO SCH ×2 (10:25→21:24)
[2020-02-16] MEDS: FUROSEMIDE 40 MG TAB PO SCH (10:26)
[2020-02-16] MEDS: amLODIPine 10 MG TAB PO SCH (10:26)
--- NOTE | 2020-02-16 11:39 | XRay Report ---
CHEST 1 VIEW INDICATION: left pleural eff. recent thora. COMPARISON: 02/11/2020 FINDINGS: Support devices: None. Heart: Stable mild cardiomegaly. Lungs/Pleura: Complete or near complete evacuation of the left pleural fluid is demonstrated. Minor a telectatic changes or infiltrate remaining at the left lung base. The remainder the lungs are clear. Mild central pulmonary venous congestion is stable. No pneumothorax. Additional findings: None. IMPRESSION: No pneumothorax post left thoracentesis. Near complete evacuation of the left pleural fluid. Mild residual airspace opacity at the left lung base. Stable mild cardiomegaly. Signer Name: Tevin Pickett Jr, MD Signed: 02/16/2020 11:34 AM Workstation Name: [id number]
[2020-02-16] MEDS: ASPIRIN EC 81 MG TAB PO SCH (12:58)
[2020-02-16 13:14] LABS: Total Cells Counted 100 /mm3
--- NOTE | 2020-02-16 15:28 | Progress Note ---
Assessment and Plan /Left pleural effusion - ordered for thoracentesis - done today - will f/u pleural fluid study -Could be from underlying CHF /Chest pain -appears to be atypical Cardiology consulted, currently resolved Status post stress test showed no reversible ischemia and low EF tte reviewed - EF 45-50%, LV mildly dilated, mild LVH, mod pleural effusion. We will continue aspirin statin and beta-millicent /Hypertension Continue antihypertensives Monitor blood pressure Adjust medications as necessary /Hyperlipidemia Continue statins /Acute kidney injury SHIVANI on CKD -likely from vasomotor nephropathy Nephrolgy consult appreciated /CHF (congestive heart failure) likely systolic dysfunction with acute exacerbation BNP [id number], tte reviewed - EF 45-50%, LV mildly dilated, mild LVH, mod pleural effusion. Cont coreg, Ordered IV Lasix, consulted cardiology /COPD (chronic obstructive pulmonary disease) continue bronchodilators /Cocaine abuse counseled, reduce beta-millicent dose /Hep C w/o coma, chronic Treat as outpatient /Gallstones, -Large gallstone seen on CT abdomen and pelvis - abdominal ultrasound ordered showed possible cholecystitis -consulted GS and recommended No acute surgical intervention at this time for asymptomatic cholelithiasis /DVT prophylaxis On Heparin and GI prophylaxis 02/12: status post stress test today, ordered for thoracentesis. Cardiology consulted for possible CHF exacerbation 02/13: Pending paracentesis, 2D echo showed EF of 45%. Abdominal ultrasound pending 02/14 pending thoracentesis, will follow result, continue current management, monitor BMP to monitor renal function, will also consult general surgery for abnormal abdominal ultrasound result 02/15 s/p thoracentesis today, drained 700cc, will follow pleural fluid study. Renal function slightly improved today with creatinine 3.0, continue to monitor BMP Possible discharge tomorrow if cleared by cardiology and nephrology. Brief history: This is a 54 yo F with past medical history for hypertension, HepC, active smoker, who presents to [facility] ER with complaints of left sided chest pain and left flank pain for 1-2 days. CXR in ER showed cardiomegaly with new left pleural effusion, VQ scan showed low probability of PE, CT C/A/P confirmed cardiomegaly, pleural effusion. Labs showed elevated BUN/Cr at 71/4,8mg/dl for which renal consult is requested. pt is currently scheduled for thoracentesis. Pt underwent lexiscan MPI stress test which was negative for ischemia with EF 35% and thus cardiology has been consulted. Physical exam: GENERAL: Elderly female lying on bed appeared to be in no discomfort. HEENT: Normocephalic. Atraumatic. No conjunctival congestion or icterus. Patient has moist mucous membranes. NECK: Supple. Trachea midline. CHEST/LUNGS: Diminished breath sound auscultated bilaterally, breathing nonlabored. No wheezes HEART/CARDIOVASCULAR: Regular in rate and rhythm. S1 and S2 positive. ABDOMEN: Abdomen is soft, positive left epigastric tenderness. Patient has normal bowel sounds. SKIN: There is no rash. Warm and dry. NEURO: No focal motor deficit. Follows command. MUSCULOSKELETAL: No joint effusion or tenderness. EXTRIMITY: No edema, no cyanosis or clubbing. PSYCH: Cooperative. Subjective Date of service: 02/16/20 Principal diagnosis: SHIVANI,Chest pain Interval history: Patient seen and examined. Medical records and medication list reviewed. No acute event overnight noted by the RN. Patient complains of difficulty breathing on minimal ambulation. Patient is tolerating diet, s/p thoracentesis today Discussed plan of care at bedside with patient. Objective - Constitutional Vitals: Vital Signs - 12hr 02/16/20 02/16/20 02/16/20 03:43 07:28 10:25 Temperature 97.6 F 97.5 F L Pulse Rate 58 L 59 L 59 L Respiratory 16 18 Rate Blood Pressure 155/79 151/67 151/67 O2 Sat by Pulse 93 93 Oximetry 02/16/20 02/16/20 10:26 11:01 Temperature 97.8 F Pulse Rate 59 L 62 Respiratory 18 Rate Blood Pressure 151/67 161/78 O2 Sat by Pulse 95 Oximetry - Labs CBC & Chem 7: 02/12/20 06:46 02/17/20 08:34 Labs: Abnormal lab results 02/16/20 Range/Units 03:56 Carbon Dioxide 19 L (22-30) mmol/L BUN 47 H (7-17) mg/dL Creatinine 3.0 H (0.7-1.2) mg/dL AST 73 H (5-40) units/L Total Protein 6.0 L (6.3-8.2) g/dL Albumin 2.6 L (3.9-5) g/dL
--- NOTE | 2020-02-16 21:53 | Progress Note ---
Assessment and Plan - Patient Problems (1) Acute on chronic renal failure Current Visit: Yes Status: Acute Qualifiers: Acute renal failure type: unspecified Chronic kidney disease stage: stage 4 (severe) Qualified Code(s): N17.9 - Acute kidney failure, unspecified; N18.4 - Chronic kidney disease, stage 4 (severe) Plan to address problem: acute kidney injury superimposed on chronic kidney disease. Chronic kidney disease presumed secondary to hypertensive nephrosclerosis. Acute kidney injury probably Pre-renal azotemia ? acute cardiorenal syndrome. kidney function is a bit better again. Follow-up electrolytes and renal function. ? DC planning if continues to improve in am (2) Gallstones Current Visit: Yes Status: Acute Plan to address problem: gallstones with pericholecystic fluid imaging. Ultrasound confirmed a gallstone. Surgery input appreciated. Asymptomatic cholelithiasis and no treatment is indicated at this point. (3) Hypertensive chronic kidney disease with stage 1 through stage 4 chronic kidney disease, or unspecified chronic kidney disease Current Visit: Yes Status: Acute Plan to address problem: Continue current medications (4) Pleural effusion, left Current Visit: Yes Status: Acute Plan to address problem: S/p Thoracentesis with drainae of 700 cc fluid (5) CHF (congestive heart failure) Current Visit: Yes Status: Chronic Qualifiers: Heart failure type: combined systolic and diastolic Plan to address problem: appears clinically euvolemic. 2D echo showed mildly reduced ejection fraction at 45-50%. DC IVF. Continue low dose Furosemide. (6) COPD (chronic obstructive pulmonary disease) Current Visit: Yes Status: Chronic Qualifiers: Emphysema type: unspecified Plan to address problem: continue bronchodilator treatments (7) Hep C w/o coma, chronic Current Visit: Yes Status: Chronic Plan to address problem: follow-up with human anatomy teacher as an outpatient (8) Hyperlipidemia Current Visit: Yes Status: Chronic Qualifiers: Hyperlipidemia type: mixed hyperlipidemia Qualified Code(s): E78.2 - Mixed hyperlipidemia Plan to address problem: continue treatment Subjective Date of service: 02/16/20 Principal diagnosis: SHIVANI,Chest pain Interval history: Patient seen lying in bed this morning. She still complaints of pain in the left flank but it is better. denies shortness of breath. No nausea or vomiting Objective - Exam Narrative Exam: middle-age female lying in bedin no acute distress HEENT: Normocephalic atraumatic, pupils equal round reactive to light Normal oropharynx, Neck: Supple, no venous distention, no goiter CVS: S1S2 RRR no murmur, rub or gallop Lungs: Clear to auscultation, no use of accessory muscles of respiration Abdomen: Full, soft, nontender, no organomegaly no bruit, bowel sounds are present Extremities: No edema, no cyanosis or clubbing Urinary: Deferred Musculo-skeletal: No joint deformities or swelling Neuro: Awake, alert, no focal deficits - Vital Signs Vital signs: Vital Signs - 12hr 02/16/20 02/16/20 02/16/20 10:25 10:26 11:01 Temperature 97.8 F Pulse Rate 59 L 59 L 62 Respiratory 18 Rate Blood Pressure 151/67 151/67 161/78 Blood Pressure [Right] O2 Sat by Pulse 95 Oximetry 02/16/20 02/16/20 15:57 19:46 Temperature 98.2 F 98.4 F Pulse Rate 55 L 59 L Respiratory 18 16 Rate Blood Pressure 157/77 Blood Pressure 125/73 [Right] O2 Sat by Pulse 93 95 Oximetry - Lab 02/12/20 06:46 02/16/20 03:56 Most recent lab results Calcium 8.6 mg/dL (8.4-10.2) 02/16/20 03:56 Magnesium 2.40 mg/dL (1.7-2.3) H 02/11/20 12:55 Urine Creatinine 63.7 mg/dL (0.1-20.0) H 02/12/20 03:20 Urine Sodium 74 mmol/L 02/12/20 03:20 Urine Total Protein 53 mg/dL (5-11.8) H 02/12/20 03:20 Medications & Allergies - Medications Allergies/Adverse Reactions: Allergies No Known Allergies Allergy (Verified 06/21/19 16:18) Home Medications: Home Medications Medication Instructions Recorded Confirmed Last Taken Type Aspirin EC [Halfprin EC] 81 mg PO QDAY #30 tablet. 06/23/19 02/11/20 Unknown Rx carvediloL [Coreg] 12.5 mg PO BID #60 tablet 06/23/19 02/11/20 Unknown Rx hydrALAZINE [Apresoline TAB] 100 mg PO Q8HR #90 tab 06/23/19 02/11/20 Unknown Rx AtorvaSTATin 40 mg PO DAILY 02/11/20 02/11/20 Unknown History Lasix TAB 40 mg PO DAILY 02/11/20 02/11/20 Unknown History Lisinopril 2.5 mg PO DAILY 02/11/20 02/11/20 Unknown History amLODIPine 5 mg PO QDAY 02/11/20 02/11/20 Unknown History Active Medications: Generic Name Dose Route Start Last Admin Trade Name Freq PRN Reason Stop Dose Admin Acetaminophen 650 mg 02/11/20 22:33 Tylenol PO Q4H PRN Pain MILD(1-3)/Fever >100.5/[place] Amlodipine Besylate 10 mg 02/14/20 12:00 02/16/20 10:26 Amlodipine PO 10 mg QDAY CORNELIA Administration Aspirin 81 mg 02/12/20 10:00 02/16/20 12:58 Halfprin Ec PO 81 mg QDAY CORNELIA Administration Atorvastatin Calcium 40 mg 02/12/20 10:00 02/16/20 10:25 Lipitor PO 40 mg DAILY CORNELIA Administration Carvedilol 6.25 mg 02/14/20 12:00 02/16/20 21:24 Coreg PO 6.25 mg BID CORNELIA Administration Famotidine 10 mg 02/12/20 10:00 02/16/20 21:25 Pepcid PO 10 mg BID CORNELIA Administration Furosemide 40 mg 02/12/20 10:00 02/16/20 10:26 Lasix PO 40 mg DAILY CORNELIA Administration Hydralazine HCl 100 mg 02/11/20 23:00 02/16/20 21:24 Apresoline PO 100 mg Q8HR CORNELIA Administration Hydromorphone HCl 0.5 mg 02/11/20 22:33 Dilaudid IV Q3H PRN Pain , Severe (7-10) Ondansetron HCl 4 mg 02/11/20 22:33 02/14/20 22:33 Zofran IV 4 mg Q8H PRN Administration Nausea And Vomiting Oxycodone/Acetaminophen 1 tab 02/11/20 22:33 02/16/20 19:26 Percocet 5/325 PO 1 tab Q6H PRN Administration Pain, Moderate (4-6) Sodium Bicarbonate 650 mg 02/15/20 11:00 02/16/20 21:24 Sodium Bicarbonate PO 650 mg BID CORNELIA Administration Sodium Chloride 10 ml 02/11/20 23:00 02/16/20 21:24 Sodium Chloride Flush Syringe 10 Ml IV 10 ml BID CORNELIA Administration Sodium Chloride 10 ml 02/11/20 22:33 Sodium Chloride Flush Syringe 10 Ml IV PRN PRN LINE FLUSH
[2020-02-17] MEDS: oxyCODONE /ACETAMINOPHEN 5-325MG TAB PO PRN ×2 (03:45→09:54)
[2020-02-17] MEDS: hydrALAZINE 100 MG TAB PO SCH ×3 (03:46→14:23)
[2020-02-17 09:32] LABS: Calcium 8.8 mg/dL (8.4-10.2)
[2020-02-17] MEDS: SODIUM BICARBONATE 650 MG TAB PO SCH (09:48)
[2020-02-17] MEDS: carvediloL 6.25 MG TAB PO SCH (09:49)
[2020-02-17] MEDS: ASPIRIN EC 81 MG TAB PO SCH (09:49)
[2020-02-17] MEDS: FAMOTIDINE 10 MG TAB PO SCH (09:49)
[2020-02-17] MEDS: amLODIPine 10 MG TAB PO SCH (09:49)
[2020-02-17] MEDS: FUROSEMIDE 40 MG TAB PO SCH (09:50)
--- NOTE | 2020-02-17 10:13 | Progress Note ---
Assessment and Plan Acute HFrEF tte reviewed - EF 45-50%, LV mildly dilated, mild LVH, mod pleural effusion. Cont coreg. Will defer volume optimization to nephrology team. Pt appears to be nearing/at euvolemia. Chest pain Currently resolved. S/p lexiscan MPI stress test 02/12 which was negative for ischemia, EF 35%. tte reviewed - EF 45-50%, LV mildly dilated, mild LVH, mod pleural effusion. Acute on chronic renal failure Nephrology following. Pleural effusion, left S/p thoracentesis yesterday with 700mL blood-tinged fluid aspirated. Sinus bradycardia Currently in NSR, HR 60 - 70s. SB overnight while sleeping, no pauses noted. Cont present cardiac management. Cont to monitor on telemetry. Hypertension Cont coreg, amlodipine, hydralazine. Gall stones Surgery consultation noted. Per primary. Hepatitis C Anemia Currently stable cardiac status. Pt may discharge from cardiology standpoint on present cardiac regimen. Recommend follow up in our office with Dr. Sheets within 2 weeks of discharge ([phone]). The patient has been seen in conjunction with Dr. Sheets who agrees with the assessment and plan of care. Subjective Date of service: 02/17/20 Principal diagnosis: SHIVANI,Chest pain Interval history: pt sitting up at bedside comfortably, feeling better. in SR on tele with SB noted overnight. states she feels ready to discharge home today. Objective Last Vital Signs Temp 98.1 F 02/17/20 07:19 Pulse 74 02/17/20 09:49 Resp 20 02/17/20 07:19 BP 156/84 02/17/20 09:49 Pulse Ox 94 02/17/20 07:19 - Physical Examination General: No Apparent Distress HEENT: Positive: PERRL, Normocephaly, Mucus Membranes Moist Neck: Positive: neck supple, trachea midline Cardiac: Positive: Reg Rate and Rhythm, S1/S2 Lungs: Positive: Decreased Breath Sounds Neuro: Positive: Grossly Intact Abdomen: Negative: Tender Skin: Negative: Rash Musculoskeletal: No Pain Extremities: Absent: edema - Labs and Meds Comprehensive Metabolic Panel 02/17/20 Range/Units 08:34 Sodium 138 (137-145) mmol/L Potassium 4.4 (3.6-5.0) mmol/L Chloride 105.9 (98-107) mmol/L Carbon Dioxide 20 L (22-30) mmol/L BUN 44 H (7-17) mg/dL Creatinine 3.2 H (0.7-1.2) mg/dL Glucose 92 (65-100) mg/dL Calcium 8.8 (8.4-10.2) mg/dL - Imaging and Cardiology EKG: report reviewed, image reviewed Echo: report reviewed - EKG Sinus rhythms and dysrhythmias: sinus rhythm Chamber hypertrophy or enlargement: left ventricular hypertro
[2020-02-17 14:24] VITALS: BP 136/77
--- NOTE | 2020-02-17 14:28 | Discharge Summary ---
Providers - Providers Date of Admission: 02/11/20 15:14 Date of discharge: 02/17/20 Attending physician: MORENA WHITEHEAD 02/11/20 22:46 Consult to Physician [CONS] Routine Comment: Consulting Provider: SHIVAM DUBON Physician Instructions: Reason For Exam: SHIVANI/CKD 02/14/20 10:13 Consult to Physician [CONS] Routine Comment: Consulting Provider: FREDDIE AB Physician Instructions: Reason For Exam: CHF 02/15/20 10:57 Consult to Physician [CONS] Routine Comment: Consulting Provider: MARIELA TORREZ Physician Instructions: Reason For Exam: Possible cholecystitis 02/16/20 15:29 Physical Therapy Evaluation and Treat [CONS] Routine Comment: Reason For Exam: placement Primary care physician: HAND TIRE TRIMMER Hospitalization Condition: Stable Pertinent studies: Chest x-ray, chest CT, VQ scan, MPI stress test, abdominal ultrasound, ultrasound-guided thoracentesis, 2D echo Hospital course: This is a 54 yo F with past medical history for hypertension, HepC, active smoker, who presents to [facility] ER with complaints of left sided chest pain and left flank pain for 1-2 days. CXR in ER showed cardiomegaly with new left pleural effusion, VQ scan showed low probability of PE, CT C/A/P confirmed cardiomegaly, pleural effusion. Labs showed elevated BUN/Cr at 71/4.8mg/dl for which renal consult is requested. Patient underwent lexiscan MPI stress test which was negative for ischemia with EF 35% and thus cardiology has been consulted. s/p thoracentesis drained 700 cc of pleural fluid. Patient was also monitored for renal function which improved from Cr 5.8 to 3.2 on discharge. Patient was medically optimized and was discharged home in stable condition with outpatient follow-up. 02/12: status post stress test, ordered for thoracentesis. Cardiology consulted for possible CHF exacerbation 02/13: Pending paracentesis, 2D echo showed EF of 45%. Abdominal ultrasound pending 02/14 pending thoracentesis, will follow result, continue current management, monitor BMP to monitor renal function, will also consult general surgery for abnormal abdominal ultrasound result 02/15 s/p thoracentesis - drained 700cc, will follow pleural fluid study. No surgery needed for cholelithiasis per general surgery. Renal function slightly improved today with creatinine 3.0, continue to monitor BMP Possible discharge tomorrow if cleared by cardiology and nephrology. 02/16: Creatinine 3.2 today, discussed with cardiology and nephrology. Patient will continue outpatient follow-up. Clinically improved, resting on room air, patient will be discharged today with outpatient follow-up. Discharge diagnosis and management: /Left pleural effusion - s/p thoracentesis drained 700 fluid on 02/15 -Could be from underlying CHF /Chest pain -appears to be atypical Cardiology consulted, currently resolved Status post stress test showed no reversible ischemia and low EF tte reviewed - EF 45-50%, LV mildly dilated, mild LVH, mod pleural effusion. We will continue aspirin statin and beta-millicent Patient also placed on IV Lasix daily, changed to p.o. on discharge /Hypertension Continue antihypertensives Monitored blood pressure, Adjusted medications as necessary /Hyperlipidemia Continue statins /Acute kidney injury, creatinine 4.8 on admission SHIVANI on CKD 4-likely from vasomotor nephropathy - Nephrolgy consult appreciated -Creatinine improved to 3.2 on discharge /CHF (congestive heart failure) likely systolic dysfunction with acute exacerbation BNP 62449, tte reviewed - EF 45-50%, LV mildly dilated, mild LVH, mod pleural effusion. Cont coreg, s/p IV Lasix, consulted cardiology Continue medical management for now and continue outpatient follow-up /COPD (chronic obstructive pulmonary disease) continued bronchodilators as needed /Cocaine abuse counseled, reduced beta-millicent dose /Hep C w/o coma, chronic Treat as outpatient /Gallstones, -Large gallstone seen on CT abdomen and pelvis - abdominal ultrasound ordered showed possible cholecystitis -consulted and recommended No acute surgical intervention at this time for asymptomatic cholelithiasis DVT prophylaxis, heparin Disposition: Home with home health Physical exam: GENERAL: Elderly female lying on bed appeared to be in no discomfort. HEENT: Normocephalic. Atraumatic. No conjunctival congestion or icterus. Patient has moist mucous membranes. NECK: Supple. Trachea midline. CHEST/LUNGS: Diminished breath sound auscultated bilaterally, breathing nonlabored. No wheezes HEART/CARDIOVASCULAR: Regular in rate and rhythm. S1 and S2 positive. ABDOMEN: Abdomen is soft, positive left epigastric tenderness. Patient has normal bowel sounds. SKIN: There is no rash. Warm and dry. NEURO: No focal motor deficit. Follows command. MUSCULOSKELETAL: No joint effusion or tenderness. EXTRIMITY: No edema, no cyanosis or clubbing. PSYCH: Cooperative. Disposition: DC/TX-06 HOME UNDER HOME [facility] Time spent for discharge: 34 minutes Core Measure Documentation - Palliative Care Palliative Care/ Comfort Measures: Not Applicable - Core Measures Any of the following diagnoses?: heart failure - Heart Failure Discharge Requirements VINAY/ARB for LVSD if EF <40%: No Reason for no VINAY/ARB: Renal impairment Beta millicent at discharge: Yes Exam - Constitutional Vitals: Temp Pulse Resp BP Pulse Ox 98.5 F 62 20 122/71 95 02/17/20 11:26 02/17/20 11:26 02/17/20 11:26 02/17/20 11:26 02/17/20 11:26 Plan Activity: advance as tolerated Weight Bearing Status: Weight Bear as Tolerated Diet: low fat, low salt, diabetic Special Instructions: restrict fluid intake to (1.5L daily), record daily weights, record daily BP diary, record blood sugar diary Follow up with: PRIMARY CAREMD [Primary Care Provider] - 3-5 Days ARIANA RUIZ MD [Staff Physician] - 7 Days DALTON NYE MD [Staff Physician] - 7 Days Prescriptions: amLODIPine 10 mg PO QDAY #30 tablet hydrALAZINE [Apresoline TAB] 100 mg PO Q8HR #90 tab AtorvaSTATin 40 mg PO DAILY #30 carvediloL [Coreg] 6.25 mg PO BID #60 tablet Aspirin EC [Halfprin EC] 81 mg PO QDAY #30 tablet. Lasix TAB 40 mg PO DAILY #30
--- NOTE | 2020-02-17 14:29 | Progress Note ---
Assessment and Plan - Patient Problems (1) Acute on chronic renal failure Current Visit: Yes Status: Acute Qualifiers: Qualified Code(s): N17.9 - Acute kidney failure, unspecified; N18.4 - Chronic kidney disease, stage 4 (severe) Plan to address problem: acute kidney injury superimposed on chronic kidney disease. Chronic kidney disease presumed secondary to hypertensive nephrosclerosis. Acute kidney injury probably Pre-renal azotemia ? acute cardiorenal syndrome. kidney function is not significantly changed. Okay to discharge from renal standpoint. Will follow up in the office in 1 week (2) Gallstones Current Visit: Yes Status: Acute Plan to address problem: gallstones with pericholecystic fluid imaging. Ultrasound confirmed a gallstone. Surgery input appreciated. Asymptomatic cholelithiasis and no treatment is indicated at this point. (3) Hypertensive chronic kidney disease with stage 1 through stage 4 chronic kidney disease, or unspecified chronic kidney disease Current Visit: Yes Status: Acute Plan to address problem: Continue current medications (4) Pleural effusion, left Current Visit: Yes Status: Acute Plan to address problem: S/p Thoracentesis with drainae of 700 cc fluid (5) CHF (congestive heart failure) Current Visit: Yes Status: Chronic Plan to address problem: appears clinically euvolemic. 2D echo showed mildly reduced ejection fraction at 45-50%. DC IVF. Continue low dose Furosemide. (6) COPD (chronic obstructive pulmonary disease) Current Visit: Yes Status: Chronic Qualifiers: Qualified Code(s): J43.9 - Emphysema, unspecified Plan to address problem: continue bronchodilator treatments (7) Hep C w/o coma, chronic Current Visit: Yes Status: Chronic Plan to address problem: follow-up with sales operations associate as an outpatient (8) Hyperlipidemia Current Visit: Yes Status: Chronic Qualifiers: Qualified Code(s): E78.2 - Mixed hyperlipidemia Plan to address problem: continue treatment Subjective Date of service: 02/17/20 Principal diagnosis: SHIVANI,Chest pain Interval history: Patient seen lying in bed this morning. she feels much better. Pain has resolved. She denies shortness of breath. No nausea or vomiting Objective - Exam Narrative Exam: middle-age female lying in bedin no acute distress HEENT: Normocephalic atraumatic, pupils equal round reactive to light Normal oropharynx, Neck: Supple, no venous distention, no goiter CVS: S1S2 RRR no murmur, rub or gallop Lungs: Clear to auscultation, no use of accessory muscles of respiration Abdomen: Full, soft, nontender, no organomegaly no bruit, bowel sounds are present Extremities: No edema, no cyanosis or clubbing Urinary: Deferred Musculo-skeletal: No joint deformities or swelling Neuro: Awake, alert, no focal deficits - Vital Signs Vital signs: Vital Signs - 12hr 02/17/20 02/17/20 02/17/20 04:17 07:19 09:49 Temperature 97.9 F 98.1 F Pulse Rate 71 66 74 Respiratory 17 20 Rate Blood Pressure 152/80 156/84 156/84 Blood Pressure [Right] O2 Sat by Pulse 96 94 Oximetry 02/17/20 02/17/20 02/17/20 10:00 11:26 14:23 Temperature 98.5 F Pulse Rate 76 62 66 Respiratory 20 Rate Blood Pressure 122/71 Blood Pressure 136/77 [Right] O2 Sat by Pulse 95 Oximetry - Lab 02/12/20 06:46 02/17/20 08:34 Most recent lab results Calcium 8.8 mg/dL (8.4-10.2) 02/17/20 08:34 Magnesium 2.40 mg/dL (1.7-2.3) H 02/11/20 12:55 Urine Creatinine 63.7 mg/dL (0.1-20.0) H 02/12/20 03:20 Urine Sodium 74 mmol/L 02/12/20 03:20 Urine Total Protein 53 mg/dL (5-11.8) H 02/12/20 03:20 Medications & Allergies - Medications Allergies/Adverse Reactions: Allergies No Known Allergies Allergy (Verified 06/21/19 16:18) Home Medications: Home Medications Medication Instructions Recorded Confirmed Last Taken Type Aspirin EC [Halfprin EC] 81 mg PO QDAY #30 tablet. 06/23/19 02/11/20 Unknown Rx carvediloL [Coreg] 12.5 mg PO BID #60 tablet 06/23/19 02/11/20 Unknown Rx hydrALAZINE [Apresoline TAB] 100 mg PO Q8HR #90 tab 06/23/19 02/11/20 Unknown Rx AtorvaSTATin 40 mg PO DAILY 02/11/20 02/11/20 Unknown History Lasix TAB 40 mg PO DAILY 02/11/20 02/11/20 Unknown History Lisinopril 2.5 mg PO DAILY 02/11/20 02/11/20 Unknown History amLODIPine 5 mg PO QDAY 02/11/20 02/11/20 Unknown History Active Medications: Generic Name Dose Route Start Last Admin Trade Name Freq PRN Reason Stop Dose Admin Acetaminophen 650 mg 02/11/20 22:33 Tylenol PO Q4H PRN Pain MILD(1-3)/Fever >100.5/[place] Amlodipine Besylate 10 mg 02/14/20 12:00 02/17/20 09:49 Amlodipine PO 10 mg QDAY CORNELIA Administration Aspirin 81 mg 02/12/20 10:00 02/17/20 09:49 Halfprin Ec PO 81 mg QDAY CORNELIA Administration Atorvastatin Calcium 40 mg 02/12/20 10:00 02/17/20 09:49 Lipitor PO 40 mg DAILY CORNELIA Administration Carvedilol 6.25 mg 02/14/20 12:00 02/17/20 09:49 Coreg PO 6.25 mg BID CORNELIA Administration Famotidine 10 mg 02/12/20 10:00 02/17/20 09:49 Pepcid PO 10 mg BID CORNELIA Administration Furosemide 40 mg 02/12/20 10:00 02/17/20 09:50 Lasix PO 40 mg DAILY CORNELIA Administration Hydralazine HCl 100 mg 02/11/20 23:00 02/17/20 14:23 Apresoline PO 100 mg Q8HR CORNELIA Administration Hydromorphone HCl 0.5 mg 02/11/20 22:33 Dilaudid IV Q3H PRN Pain , Severe (7-10) Ondansetron HCl 4 mg 02/11/20 22:33 02/14/20 22:33 Zofran IV 4 mg Q8H PRN Administration Nausea And Vomiting Oxycodone/Acetaminophen 1 tab 02/11/20 22:33 02/17/20 09:54 Percocet 5/325 PO 1 tab Q6H PRN Administration Pain, Moderate (4-6) Sodium Bicarbonate 650 mg 02/15/20 11:00 02/17/20 09:48 Sodium Bicarbonate PO 650 mg BID CORNELIA Administration Sodium Chloride 10 ml 02/11/20 23:00 02/17/20 09:50 Sodium Chloride Flush Syringe 10 Ml IV 10 ml BID CORNELIA Administration Sodium Chloride 10 ml 02/11/20 22:33 Sodium Chloride Flush Syringe 10 Ml IV PRN PRN LINE FLUSH
== END 2020-02-17 15:35 | disposition home or self-care (01) | DRG 291 ==
LOC: ED 12:12 → 4A 15:14
PROVIDERS: ADMIT Internal Medicine; ATTEND Internal Medicine
PROC: 0W9B3ZZ Drainage of Left Pleural Cavity, Percutaneous Approach (ICD-10-PCS; principal; 2020-02-16)
DX: I13.0 Hypertensive heart and chronic kidney disease with heart failure and stage 1 through stage 4 chronic kidney disease, or unspecified chronic kidney disease (principal); N17.0 Acute kidney failure with tubular necrosis; I50.23 Acute on chronic systolic (congestive) heart failure; J91.8 Pleural effusion in other conditions classified elsewhere; N18.4 Chronic kidney disease, stage 4 (severe); I42.9 Cardiomyopathy, unspecified; F17.200 Nicotine dependence, unspecified, uncomplicated; E78.2 Mixed hyperlipidemia; F14.10 Cocaine abuse, uncomplicated; K80.20 Calculus of gallbladder without cholecystitis without obstruction; D64.9 Anemia, unspecified; J44.9 Chronic obstructive pulmonary disease, unspecified; Z79.82 Long term (current) use of aspirin; Z79.899 Other long term (current) drug therapy; Z87.442 Personal history of urinary calculi; Z82.49 Family history of ischemic heart disease and other diseases of the circulatory system
CPT/HCPCS: 32555; 36415; 71045; 71046; 71250; 74176; 76705; 78452; 78580; 80048; 80053; 80061; 80076; 80307; 81001; 82140; 82550; 82553; 82570; 82947; 83036; 83605; 83735; 83880; 84156; 84160; 84300; 84439; 84443; 84484; 85025; 85379; 85610; 85730; 88112; 88305; 88341; 88342; 89051; 90686; 93005; 93017; 93306; G0378; A9270-GY; A9502; A9540; J2405; J2785; J7030

== ENCOUNTER 2020-04-20 05:36 | Emergency (ER) | payer SELFPAY ==
[2020-04-20] MEDS ORDERED: ASPIRIN 325 MG TAB PO ONE (05:43)
[2020-04-20 06:18] LABS: Basophils % (Auto) 0.2 % (0.0-1.8); Eosinophils # (Auto) 0.1 K/mm3 (0.0-0.4); Eosinophils % (Auto) 2.5 % (0.0-4.3); Hemoglobin 11.8 gm/dl (10.1-14.3); Lymphocytes # (Auto) 1.3 K/mm3 (1.2-5.4); Lymphocytes % (Auto) 23.1 % (13.4-35.0); Mean Corpuscular HGB Conc 33 % (30-34); Mean Corpuscular Volume 84 fl (79-97); Monocytes # (Auto) 0.5 K/mm3 (0.0-0.8); Monocytes % (Auto) 8.7 % (0.0-7.3); Platelet Count 128 K/mm3 (140-440); Red Blood Count 4.26 M/mm3 (3.65-5.03); Red Cell Distribution Width 15.8 % (13.2-15.2)
--- NOTE | 2020-04-20 06:19 | XRay Report ---
CHEST PA AND LATERAL VIEWS INDICATION: Chest Pain. COMPARISON: 02/16/2020 FINDINGS: Support devices: None. Heart: Stable. Lungs/Pleura: There is a small left pleural effusion. There is mild atelectasis in the left lung base . Right lung is clear. IMPRESSION: 1. Small left pleural effusion with mild adjacent atelectasis. Signer Name: Clive Hdez MD Signed: 04/20/2020 6:15 AM Workstation Name: [id number]
[2020-04-20 07:25] LABS: Chol/HDL Ratio 3.98 %
[2020-04-20] MEDS ORDERED: HYDROcodone/ACETAMINOPHEN 5-325 MG TAB PO ONE (07:54)
[2020-04-20] MEDS ORDERED: SODIUM POLYSTYRENE 15 GM/60 ML ORAL LIQD PO ONE ×2 (08:23→08:24)
[2020-04-20] MEDS ORDERED: SODIUM CHLORIDE 0.9% 1000 ML 1,000 ML IV ONE ×2 (08:24→12:37)
--- NOTE | 2020-04-20 08:49 | Emergency Department Report ---
ED Chest Pain HPI - General Chief Complaint: Chest Pain Stated Complaint: CHEST PAIN Time Seen by Provider: 04/20/20 07:36 Source: patient Mode of arrival: Ambulatory Limitations: No Limitations - History of Present Illness Initial Comments: 54-year-old female with a past medical history of hepatitis C, CHF, COPD, diabetes, and asthma presents to the hospital planing of a constant chest pressure radiating to the back that has been ongoing for several hours prior to arrival. Pressure is constant and worse with coughing. Patient denies shortness of breath, fever, persistent cough, leg pain, or edema. Patient was recently admitted to [facility] and signed out AMA several days ago. She states she was admitted for hypoxia and COPD exacerbation and diagnosed with a left calf DVT. She was started on blood thinners in the hospital but states they were not prescribed because she left AGAINST MEDICAL ADVICE. As per medical record patient was admitted here in January for renal failure and chest pain. She had a negative Lexiscan stress test in January 2020 and a V/Q negative for pulmonary embolism at that time. Patient also received thoracentesis for a left pleural effusion thought to probably be due to underlying CHF. 2D echo showed EF of 45%. Patient also has a history of cocaine abuse. Severity scale (0 -10): 6 - Related Data Previous Rx's Medication Instructions Recorded Last Taken Type Aspirin EC [Halfprin EC] 81 mg PO QDAY #30 tablet. 02/17/20 Unknown Rx AtorvaSTATin 40 mg PO DAILY #30 02/17/20 Unknown Rx Lasix TAB 40 mg PO DAILY #30 02/17/20 Unknown Rx amLODIPine 10 mg PO QDAY #30 tablet 02/17/20 Unknown Rx carvediloL [Coreg] 6.25 mg PO BID #60 tablet 02/17/20 Unknown Rx hydrALAZINE [Apresoline TAB] 100 mg PO Q8HR #90 tab 02/17/20 Unknown Rx Rivaroxaban [Xarelto Starter Pack] 1 dose PO BID #1 tab.ds.pk 04/20/20 Unknown Rx Allergies Allergy/AdvReac Type Severity Reaction Status Date / Time No Known Allergies Allergy Verified 06/21/19 16:18 Heart Score - HEART Score History: Slightly suspicious EKG: Non-specific Age: 45-65 Risk factors: 1-2 risk factors Troponin: 1-3x normal limit HEART Score: 4 ED Review of Systems ROS: Stated complaint: CHEST PAIN Other details as noted in HPI Comment: All other systems reviewed and negative ED Past Medical Hx - Past Medical History Hx Hypertension: Yes Hx Congestive Heart Failure: Yes Hx Diabetes: No Hx Deep Vein Thrombosis: Yes (04/14/20 dopplerocclusion of the left profundus of the femoral vein. ) Hx Asthma: No Hx COPD: Yes Additional medical history: hep c copd - Surgical History Additional Surgical History: kidney stones - Social History Smoking Status: Current Every Day Smoker Substance Use Type: Cocaine - Medications Home Medications: Home Medications Medication Instructions Recorded Confirmed Last Taken Type Aspirin EC [Halfprin EC] 81 mg PO QDAY #30 tablet.dr 02/17/20 Unknown Rx AtorvaSTATin 40 mg PO DAILY #30 02/17/20 Unknown Rx Lasix TAB 40 mg PO DAILY #30 02/17/20 Unknown Rx amLODIPine 10 mg PO QDAY #30 tablet 02/17/20 Unknown Rx carvediloL [Coreg] 6.25 mg PO BID #60 tablet 02/17/20 Unknown Rx hydrALAZINE [Apresoline TAB] 100 mg PO Q8HR #90 tab 02/17/20 Unknown Rx Rivaroxaban [Xarelto Starter Pack] 1 dose PO BID #1 tab.ds.pk 04/20/20 Unknown Rx ED Physical Exam - General Limitations: No Limitations - Other Other exam information: General: No acute distress Head: Atraumatic Eyes: normal appearance ENT: Moist mucous membranes Neck: Normal appearance, no midline tenderness Chest: Clear to auscultation bilaterally, chest wall nontender CV: Regular rate and rhythm Abdomen: Soft, normal bowel sounds, nontender, nondistended, no rebound or guarding Back: Normal inspection Extremity: Normal inspection, full range of motion, no calf tenderness or leg edema, no leg asymmetry Neuro: Alert O x 3, no facial asymmetry, speech clear, no gross motor sensory deficit Psych: Appropriate behavior Skin: No rash ED Course Vital Signs 04/20/20 04/20/20 04/20/20 05:38 06:44 06:46 Temperature 98.2 F Pulse Rate 76 Respiratory 18 18 Rate Blood Pressure 182/99 O2 Sat by Pulse 95 93 Oximetry 04/20/20 04/20/20 04/20/20 07:00 08:00 08:06 Temperature Pulse Rate 68 65 Respiratory 23 22 23 Rate Blood Pressure 171/90 172/89 O2 Sat by Pulse 96 96 Oximetry 04/20/20 04/20/20 04/20/20 09:00 10:00 11:07 Temperature Pulse Rate 62 74 65 Respiratory 16 18 15 Rate Blood Pressure 168/86 175/107 175/107 O2 Sat by Pulse 97 96 92 Oximetry - Reevaluation(s) Reevaluation #1: 04/20/20 11:41 I attempted to obtain medical records from [facility] but the office is closed today. Pt did sign consent to obtain medical record. I reached out to ED physician at [facility] who reviewed medical record. Pt was admitted on the . She had a DVT study on the showing a occlusion of the left profundus of the femoral vein. And had a V/Q scan showing "lack of PE" 0 ELZBIETA score - Elzbieta Score Age > 65: (0) No Aspirin use within the Past 7 Days: (0) No 3 or more CAD Risk Factors: (1) Yes 2 or more Angina events in past 24 hrs: (0) No Known CAD with more than 50% Stenosis: (0) No Elevated Cardiac Markers: (0) No ST Deviation Greater than 0.5mm: (0) No ELZBIETA Score: 1 ED Medical Decision Making - Lab Data Result diagrams: 04/20/20 05:57 04/20/20 14:34 Lab Results 04/20/20 04/20/20 04/20/20 Range/Units 05:57 05:57 09:05 WBC 5.5 (4.5-11.0) K/mm3 RBC 4.26 (3.65-5.03) M/mm3 Hgb 11.8 (10.1-14.3) gm/dl Hct 36.0 (30.3-42.9) % MCV 84 (79-97) fl MCH 28 (28-32) pg MCHC 33 (30-34) % RDW 15.8 H (13.2-15.2) % Plt Count 128 L (140-440) K/mm3 Lymph % (Auto) 23.1 (13.4-35.0) % [place] % (Auto) 8.7 H (0.0-7.3) % Eos % (Auto) 2.5 (0.0-4.3) % Baso % (Auto) 0.2 (0.0-1.8) % Lymph # 1.3 (1.2-5.4) K/mm3 [place] # 0.5 (0.0-0.8) K/mm3 Eos # 0.1 (0.0-0.4) K/mm3 Baso # 0.0 (0.0-0.1) K/mm3 Seg Neutrophils % 65.5 (40.0-70.0) % Seg Neutrophils # 3.6 (1.8-7.7) K/mm3 Sodium 142 (137-145) mmol/L Potassium 5.6 H (3.6-5.0) mmol/L Chloride 101.9 (98-107) mmol/L Carbon Dioxide 24 (22-30) mmol/L Anion Gap 22 mmol/L BUN 68 H (7-17) mg/dL Creatinine 3.3 H (0.7-1.2) mg/dL Estimated GFR 15 ml/min BUN/Creatinine Ratio 21 % Glucose 103 H (65-100) mg/dL Calcium 9.0 (8.4-10.2) mg/dL Troponin T 0.036 H 0.027 (0.00-0.029) ng/mL Triglycerides 184 H (2-149) mg/dL Cholesterol 203 H (50-199) mg/dL LDL Cholesterol Direct 111 (50-130) mg/dL HDL Cholesterol 51 (40-59) mg/dL Cholesterol/HDL Ratio 3.98 % Urine Opiates Screen Urine Methadone Screen Ur Barbiturates Screen Ur Phencyclidine Scrn Ur Amphetamines Screen U Benzodiazepines Scrn Urine Cocaine Screen U Marijuana (THC) Screen Drugs of Abuse Note 04/20/20 04/20/20 04/20/20 Range/Units 11:37 14:34 Unknown WBC (4.5-11.0) K/mm3 RBC (3.65-5.03) M/mm3 Hgb (10.1-14.3) gm/dl Hct (30.3-42.9) % MCV (79-97) fl MCH (28-32) pg MCHC (30-34) % RDW (13.2-15.2) % Plt Count (140-440) K/mm3 Lymph % (Auto) (13.4-35.0) % Bosque % (Auto) (0.0-7.3) % Eos % (Auto) (0.0-4.3) % Baso % (Auto) (0.0-1.8) % Lymph # (1.2-5.4) K/mm3 [place] # (0.0-0.8) K/mm3 Eos # (0.0-0.4) K/mm3 Baso # (0.0-0.1) K/mm3 Seg Neutrophils % (40.0-70.0) % Seg Neutrophils # (1.8-7.7) K/mm3 Sodium (137-145) mmol/L Potassium 5.0 (3.6-5.0) mmol/L Chloride (98-107) mmol/L Carbon Dioxide (22-30) mmol/L Anion Gap mmol/L BUN (7-17) mg/dL Creatinine (0.7-1.2) mg/dL Estimated GFR ml/min BUN/Creatinine Ratio % Glucose (65-100) mg/dL Calcium (8.4-10.2) mg/dL Troponin T 0.026 (0.00-0.029) ng/mL Triglycerides (2-149) mg/dL Cholesterol (50-199) mg/dL LDL Cholesterol Direct (50-130) mg/dL HDL Cholesterol (40-59) mg/dL Cholesterol/HDL Ratio % Urine Opiates Screen Negative Urine Methadone Screen Negative Ur Barbiturates Screen Negative Ur Phencyclidine Scrn Negative Ur Amphetamines Screen Negative U Benzodiazepines Scrn Negative Urine Cocaine Screen Positive U Marijuana (THC) Screen Negative Drugs of Abuse Note Disclamer - EKG Data -: EKG Interpreted by Wi EKG shows normal: sinus rhythm, ST-T waves (lvh repol) Rate: normal - Radiology Data Radiology results: report reviewed NUCLEAR MEDICINE PERFUSION LUNG SCAN INDICATION / CLINICAL INFORMATION: Chest pain, recently diagnosed DVT. TECHNIQUE: 5.4 mCi of Tc-99m MAA were given by IV. COMPARISON: Chest radiograph dated 04/20/2020. FINDINGS: PERFUSION: There is a m atching defect along the left lower lung at the site of a known left pleural effusion. There are no segmental mismatches. ADDITIONAL FINDINGS: None. IMPRESSION: 1. Low probability for pulmonary embolism. CHEST PA AND LATERAL VIEWS INDICATION: Chest Pain. COMPARISON: 02/16/2020 FINDINGS: Support devices: None. Heart: Stable. Lungs/Pleura: There is a small left pleural effusion. There is mild atelectasis in the left lung base. Right lung is clear. IMPRESSION: 1. Small left pleural effusion with mild adjacent atelectasis. - Medical Decision Making Patient with chronic renal insufficiency which is unchanged compared to previ ous. Patient was provided IV fluids in addition to Lasix and Kayexalate for mild hypokalemia. Repeat potassium shows improvement. Patient is chest pain is atypical. Negative cardiac work-up including stress test in January 2020. Patient has a mildly elevated troponin but subsequently troponins were within normal range. EKG unchanged to previous and unchanged x 2 in ed. Patient now has a second negative VQ scan within a 1 week time. I called [facility] to verify that patient was diagnosed with acute left leg DVT. Pt will be started on Xarelto with first dose provided here. She was provided the 30-day supply trial offer packet with a prescription. UDS positive for cocaine Critical Care Time: No Critical care attestation.: If time is entered above; I have spent that time in minutes in the direct care of this critically ill patient, excluding procedure time. ED Disposition Clinical Impression: Atypical chest pain, Right leg DVT, Cocaine abuse, CRI (chronic renal insufficiency) Disposition: - TO HOME OR SELFCARE Is pt being admited?: No Does the pt Need Aspirin: No Condition: Stable Instructions: Chest Pain (ED), Impaired Kidney Function (ED), Cocaine Abuse (ED), Deep Venous Thrombosis (ED), Rivaroxaban (By mouth) Additional Instructions: Take the medication as prescribed. Follow-up with your doctor or doctor/clinic provided. Return if symptoms worsen as indicated by your discharge instructions. You are being starting on Xarelto for your blood clot. You have been provided a trial off her package for a free 30-day supply. While taking this medication he should avoid other blood thinners including aspirin, Plavix, and avoid Motrin. Take Tylenol as needed for your chest pain. Prescriptions: Rivaroxaban [Xarelto Starter Pack] 1 dose PO BID #1 tab.ds.pk Referrals: RUSTY HOWARD MD [Primary Care Provider] - 3-5 Days RASHID VARNER MD [Staff Physician] - 3-5 Days Time of Disposition: 15:48
[2020-04-20] MEDS ORDERED: SODIUM CHLORIDE 0.9% 500 ML 500 ML IV ONE (08:50)
[2020-04-20 10:39] LABS: Amphetamine Screen,Urine Negative; Benzodiazepines Screen,Urine Negative; Cannabinoid Screen,Urine Negative; Methadone Screen,Urine Negative; Opiate Screen,Urine Negative
[2020-04-20 10:53] LABS: Cocaine Screen,Urine Positive
--- NOTE | 2020-04-20 12:11 | Nuclear Medicine Report ---
NUCLEAR MEDICINE PERFUSION LUNG SCAN INDICATION / CLINICAL INFORMATION: Chest pain, recently diagnosed DVT. TECHNIQUE: 5.4 mCi of Tc-99m MAA were given by IV. COMPARISON: Chest radiograph dated 04/20/2020. FINDINGS: PERFUSION: There is a matching defect along the left lower lung at the site of a known left pleural e ffusion. There are no segmental mismatches. ADDITIONAL FINDINGS: None. IMPRESSION: 1. Low probability for pulmonary embolism. Signer Name: Toi Jain MD Signed: 04/20/2020 12:07 PM Workstation Name: [id number]
[2020-04-20] MEDS ORDERED: RIVAROXABAN 15 MG TAB PO ONE (12:24)
[2020-04-20] MEDS ORDERED: FUROSEMIDE 20 MG/2 ML INJ IV ONE ×2 (12:37→14:07)
[2020-04-20 12:50] VITALS: BP 175/107
== END 2020-04-20 16:10 | disposition home or self-care (01) ==
LOC: ED 05:36
DX: I13.0 Hypertensive heart and chronic kidney disease with heart failure and stage 1 through stage 4 chronic kidney disease, or unspecified chronic kidney disease (principal); N18.9 Chronic kidney disease, unspecified; I50.9 Heart failure, unspecified; J44.9 Chronic obstructive pulmonary disease, unspecified; F17.200 Nicotine dependence, unspecified, uncomplicated; F14.10 Cocaine abuse, uncomplicated; Z86.718 Personal history of other venous thrombosis and embolism; Z79.01 Long term (current) use of anticoagulants; Z79.899 Other long term (current) drug therapy
CPT/HCPCS: 36415; 71046; 78580; 80048; 80061; 80307; 84132; 84484; 85025; 93005; 96374; 96375; 99284; A9540; J1940; J7030; J7040

== ENCOUNTER 2020-08-01 20:07 | Inpatient (IN) | payer OTHER, SELFPAY ==
[2020-08-01] MEDS ORDERED: ASPIRIN 325 MG TAB PO ONE (20:50)
[2020-08-01 21:38] LABS: Basophils # (Auto) 0.1 K/mm3 (0.0-0.1); Eosinophils # (Auto) 0.1 K/mm3 (0.0-0.4); Eosinophils % (Auto) 1.9 % (0.0-4.3); Hematocrit 34.1 % (30.3-42.9); Lymphocytes % (Auto) 16.1 % (13.4-35.0); Mean Corpuscular HGB Conc 32 % (30-34); Mean Corpuscular Volume 85 fl (79-97); Monocytes # (Auto) 0.5 K/mm3 (0.0-0.8); Monocytes % (Auto) 7.9 % (0.0-7.3); Platelet Count 179 K/mm3 (140-440); Red Cell Distribution Width 16.4 % (13.2-15.2)
--- NOTE | 2020-08-01 21:50 | XRay Report ---
CHEST 2 VIEWS INDICATION / CLINICAL INFORMATION: Chest Pain. COMPARISON: 04/20/2020 FINDINGS: SUPPORT DEVICES: None. HEART / MEDIASTINUM: Stable. LUNGS / PLEURA: Bilateral lung base opacities with small bilateral pleural effusions. No pneumothorax . ADDITIONAL FINDINGS: No significant additional findings. IMPRESSION: 1. Mild bibasilar pleural-parenchymal disease. Signer Name: Balbir Mckeon MD Signed: 08/01/2020 9:45 PM Workstation Name: [id number] [id number]
--- NOTE | 2020-08-02 01:38 | Emergency Department Report ---
ED General Adult HPI - General Chief complaint: Chest Pain Stated complaint: CHEST PAIN/BODY SWELLING PUI?: Yes Time Seen by Provider: 08/02/20 01:33 Source: patient, RN notes reviewed, old records reviewed Mode of arrival: Ambulatory Limitations: Physical Limitation - History of Present Illness Initial comments: The patient was evaluated in the emergency department for symptoms described in the history of present illness. He/she was evaluated in the context of the global COVID-19 pandemic, which necessitated consideration that the patient might be at risk for infection with the virus that causes COVID-19. Institutional protocols and algorithms that pertain to the evaluation of patients at risk for COVID-19 are in a state of rapid change based on information released by regulatory bodies including the CDC and federal and state organizations. These policies and algorithms were followed during the patient's care in the emergency department. Please note that these policies, procedures and recommendations changed on a rapid basis. The patient is a 55-year-old female. The patient does not have a local primary care doctor. Past medical history includes renal insufficiency, she does not have a local primary care doctor or pediatrician active practice. She also has a history of pleural effusions, requiring thoracentesis, congestive heart failure, ejection fraction 45 to 50%, chronically elevated troponin, hypertension, hyperlipidemia, COPD, cocaine abuse, hepatitis C, and gallstones. She also has a history of distal l eft lower extremity DVT, diagnosed in April, supposed to be on Xarelto, but is noncompliant. Patient had to VQ studies for pulmonary embolism at this hospital within the past few months, both of which were negative for acute findings, and also had a cardiac nuclear stress test at this hospital January 2020, which was essentially negative for ischemic findings. Today, the patient presents to the ER with a complaint of nontraumatic lower extremity swelling, facial swelling, unintentional weight gain, cough, shortness of breath and "my feet hurt." The patient specifically denies chest pain to mys elf, and makes no complaint of chest pain. She thinks that she may have loss of taste and/or smell, but she is not certain. She has not been socially isolating or self quarantining during the COVID pandemic. She denies dysuria and hematuria. -: Gradual, days(s) Location: left, right, lower extremity Quality: aching Consistency: constant Improves with: rest Worsens with: movement - Related Data Previous Rx's Medication Instructions Recorded Last Taken Type Aspirin EC [Halfprin EC] 81 mg PO QDAY #30 tablet. 02/17/20 Unknown Rx AtorvaSTATin 40 mg PO DAILY #30 02/17/20 Unknown Rx Lasix TAB 40 mg PO DAILY #30 02/17/20 Unknown Rx amLODIPine 10 mg PO QDAY #30 tablet 02/17/20 Unknown Rx carvediloL [Coreg] 6.25 mg PO BID #60 tablet 02/17/20 Unknown Rx hydrALAZINE [Apresoline TAB] 100 mg PO Q8HR #90 tab 02/17/20 Unknown Rx Rivaroxaban [Xarelto Starter Pack] 1 dose PO BID #1 tab.ds.pk 04/20/20 Unknown Rx Allergies Allergy/AdvReac Type Severity Reaction Status Date / Time No Known Allergies Allergy Verified 06/21/19 16:18 ED Review of Systems ROS: Stated complaint: CHEST PAIN/BODY SWELLING Other details as noted in HPI Constitutional: malaise, weakness Eyes: denies: eye discharge ENT: congestion Respiratory: shortness of breath Cardiovascular: orthopnea, edema Gastrointestinal: denies: abdominal pain, nausea, vomiting, diarrhea, constipation, hematemesis, melena Genitourinary: denies: urgency Musculoskeletal: arthralgia, myalgia Skin: denies: lesions Neurological: weakness Hematological/Lymphatic: denies: easy bleeding ED Past Medical Hx - Past Medical History Hx Hypertension: Yes Hx Congestive Heart Failure: Yes Hx Diabetes: No Hx Deep Vein Thrombosis: Yes (04/14/20 dopplerocclusion of the left profundus of the femoral vein. ) Hx Asthma: No Hx COPD: Yes Additional medical history: hep c copd - Surgical History Additional Surgical History: kidney stones - Social History Smoking Status: Current Every Day Smoker Substance Use Type: Cocaine - Medications Home Medications: Home Medications Medication Instructions Recorded Confirmed Last Taken Type Aspirin EC [Halfprin EC] 81 mg PO QDAY #30 tablet. 02/17/20 Unknown Rx AtorvaSTATin 40 mg PO DAILY #30 02/17/20 Unknown Rx Lasix TAB 40 mg PO DAILY #30 02/17/20 Unknown Rx amLODIPine 10 mg PO QDAY #30 tablet 02/17/20 Unknown Rx carvediloL [Coreg] 6.25 mg PO BID #60 tablet 02/17/20 Unknown Rx hydrALAZINE [Apresoline TAB] 100 mg PO Q8HR #90 tab 02/17/20 Unknown Rx Rivaroxaban [Xarelto Starter Pack] 1 dose PO BID #1 tab.ds.pk 04/20/20 Unknown Rx ED Physical Exam - General Limitations: Physical Limitation General appearance: alert, anxious, obese - Head Head exam: Present: atraumatic, normocephalic - Eye Eye exam: Present: normal appearance, EOMI. Absent: nystagmus - ENT ENT exam: Present: normal exam, normal orophraynx, mucous membranes moist, normal external ear exam - Neck Neck exam: Present: normal inspection, full ROM. Absent: tenderness, meningismus - Respiratory Respiratory exam: Present: respiratory distress, rales - Cardiovascular Cardiovascular Exam: Present: regular rate, normal rhythm, normal heart sounds. Absent: bradycardia, tachycardia, irregular rhythm, systolic murmur, diastolic murmur, rubs, gallop - GI/Abdominal GI/Abdominal exam: Present: soft. Absent: distended, tenderness, guarding, rebound, rigid, pulsatile mass - Extremities Exam Extremities exam: Present: normal inspection, full ROM, pedal edema (There is 3- 4+ edema in the bilateral lower extremities. The muscular compartments are soft. There is no long bony tenderness.), other (2+ pulses noted in the bilateral upper and lower extremities. There is no palpable cord. negative Homans sign. Muscular compartments are soft. The pelvis is stable.) - Back Exam Back exam: Present: normal inspection, full ROM. Absent: tenderness, CVA tenderness (R), CVA tenderness (L), paraspinal tenderness, vertebral tenderness - Neurological Exam Neurological exam: Present: alert, oriented X3, other (No facial droop. Tongue midline. Extraocular movements intact bilaterally. Facial sensation intact to light touch in V1, V2, V3 distribution bilaterally. 5 and a 5 strength in 4 extremities. Sensation intact to light touch in 4 extremities.). Absent: motor sensory deficit - Psychiatric Psychiatric exam: Present: anxious - Skin Skin exam: Present: warm, dry, intact, normal color. Absent: rash ED Course Vital Signs 08/02/20 01:53 Temperature 98.5 F Pulse Rate 86 Respiratory 28 H Rate Blood Pressure 188/114 [Right] O2 Sat by Pulse 100 Oximetry - Reevaluation(s) Reevaluation #1: 08/02/20 02:38 Nursing team reports patient is markedly hypertensive. This is likely secondary to diet and medication noncompliance. prior medications are reviewed and appreciated, we will continue patient's oral medications while here in the emergency room. Bed placement is pending at this time. ED Medical Decision Making - Lab Data Result diagrams: 08/01/20 20:57 08/01/20 20:57 Lab Results 08/01/20 08/01/20 08/01/20 Range/Units 20:57 20:57 23:31 WBC 6.5 (4.5-11.0) K/mm3 RBC 4.00 (3.65-5.03) M/mm3 Hgb 11.0 (10.1-14.3) gm/dl Hct 34.1 (30.3-42.9) % MCV 85 (79-97) fl MCH 28 (28-32) pg MCHC 32 (30-34) % RDW 16.4 H (13.2-15.2) % Plt Count 179 (140-440) K/mm3 Lymph % (Auto) 16.1 (13.4-35.0) % Finney % (Auto) 7.9 H (0.0-7.3) % Eos % (Auto) 1.9 (0.0-4.3) % Baso % (Auto) 1.0 (0.0-1.8) % Lymph # (Auto) 1.0 L (1.2-5.4) K/mm3 Finney # (Auto) 0.5 (0.0-0.8) K/mm3 Eos # (Auto) 0.1 (0.0-0.4) K/mm3 Baso # (Auto) 0.1 (0.0-0.1) K/mm3 Seg Neutrophils % 73.1 H (40.0-70.0) % Seg Neutrophils # 4.7 (1.8-7.7) K/mm3 Sodium 141 (137-145) mmol/L Potassium 4.7 (3.6-5.0) mmol/L Chloride 107.1 H (98-107) mmol/L Carbon Dioxide 18 L (22-30) mmol/L Anion Gap 21 mmol/L BUN 50 H (7-17) mg/dL Creatinine 3.8 H (0.6-1.2) mg/dL Estimated GFR 12 ml/min BUN/Creatinine Ratio 13 % Glucose 111 H (65-100) mg/dL Calcium 8.0 L (8.4-10.2) mg/dL Troponin T 0.094 H 0.102 H* (0.00-0.029) ng/mL NT-Pro-B Natriuret Pep 64409 H (0-900) pg/mL - EKG Data -: EKG Interpreted by Ms EKG shows normal: sinus rhythm Rate: normal - EKG Data When compared to previous EKG there are: no significant change 08/02/20 01:59 EKG #1 shows a sinus rhythm, 68 bpm, left axis deviation, left anterior fascic ular block, left ventricular hypertrophy, QTC 426 ms, the EKG is abnormal, the EKG appears to be unchanged from prior EKG from April 2020 - Radiology Data Radiology results: report reviewed, image reviewed Print Report Referring Physician: GABE GARCIA Patient Name: HILDA CARBALLO Date of : 1965 Sex: Female Report Date: 2020-08-01 Report Status: Finalized Findings [facility] [address] [place] [address] XRay Report Signed Patient: HILDA CARBALLO MR#: [id number] : 1965 Acct:[id number] Age/Sex: 55 / F ADM Date: 08/01/20 Loc: ED [facility] Dr: Ordering Physician: GABE GARCIA MD Date of Service: 08/01/20 Procedure(s): XR chest routine 2V Accession Number(s): [id number] cc: ED MD RADHA Fluoro Time In Minutes: CHEST 2 VIEWS INDICATION / CLINICAL INFORMATION: Chest Pain. COMPARISON: 04/20/2020 FINDINGS: SUPPORT DEVICES: None. HEART / MEDIASTINUM: Stable. LUNGS / PLEURA: Bilateral lung base opacities with small bilateral pleural effusions. No pneumothorax. ADDITIONAL FINDINGS: No significant additional findings. IMPRESSION: 1. Mild bibasilar pleural-parenchymal disease. Signer Name: Rocio Mckeon MD Signed: 08/01/2020 9:45 PM Workstation Name: [id number] Transcribed By: RH Dictated By: ROCIO MCKEON III Electronically Authenticated By: ROCIO MCKEON III Signed Date/Time: 08/01/202144 DD/ 43 TD/TT: - Medical Decision Making Differential diagnosis, including but not limited to: Congestive heart failure, renal insufficiency, cardiorenal syndrome, pneumonia, COVID-19, elevated CK/rhabdomyolysis Assessment and plan: 55-year-old female, who to me does not complain of chest pain, specifically denies chest pain, complaining of lower extremity swelling, facial swelling, cough, shortness of breath, orthopnea. She has objective evidence of clinical fluid overload, manifest by crackles, rales, hypoxia, and edema. She did endorse diffuse symptoms which are nonspecific for COVID, and her x-ray of the chest suggested bilateral infiltrates and or congestive heart failure. Certainly, when compared to her prior chest x-ray, her chest x-ray today shows impressive infiltrates. Patient also hypoxic, requiring supplemental oxygen. She will be treated with supplemental oxygen, empiric steroids, ceftriaxone, azithromycin, high-dose Lasix. Patient will be admitted to the medical service for decompensated fluid overload/congestive heart failure, potential multi-factorial hypoxic respiratory failure, secondary to pneumonia versus COVID versus other versus CHF. As a courtesy, we will place a consult to infectious disease, additional labs to rule stratify patient for cytokine storm or ordered. Patient also has a history of DVT, and will be treated empirically with Xarelto. Given renal insufficiency, CT angiogram with IV contrast relatively contraindicated, nuclear medicine study will likely be of low utility at this time, given chest x-ray findings. Elevated troponin reviewed and appreciated, this is likely a type II troponin leak. Patient's EKG today is unchanged from prior, and she specifically denies chest pain to myself. Will discuss with the hospital physician to arrange admission. Critical Care Time: Yes Critical care time in (mins) excluding proc time.: 35 Critical care attestation.: If time is entered above; I have spent that time in minutes in the direct care of this critically ill patient, excluding procedure time. ED Disposition Clinical Impression: Renal insufficiency, CHF (congestive heart failure), Fluid overload, Hypoxia, Suspected 2019 novel coronavirus infection, History of DVT of lower extremity Disposition: OP ADMIT IP TO THIS HOSP Is pt being admited?: Yes Does the pt Need Aspirin: No Condition: Serious Referrals: PRIMARY CARE, [Primary Care Provider] - 3-5 Days
[2020-08-02] MEDS ORDERED: AZITHROMYCIN 500 MG in SODIUM CHLORIDE 0.9% 250ML 250 ML IV ONE (01:48)
[2020-08-02] MEDS ORDERED: FUROSEMIDE 40 MG/4 ML INJ IV ONE (01:48)
[2020-08-02] MEDS ORDERED: cefTRIAXone/NS 1 GM/50 ML 1 GM/50 ML BAG IV ONE (01:48)
[2020-08-02] MEDS ORDERED: ACETAMINOPHEN 500 MG TAB PO ONE (01:48)
[2020-08-02] MEDS ORDERED: RIVAROXABAN 20 MG TAB PO ONE (01:49)
[2020-08-02] MEDS ORDERED: dexAMETHasone 4 MG/ML VIAL IV ONE (01:54)
[2020-08-02] MEDS ORDERED: amLODIPine 10 MG TAB PO STA (02:37)
[2020-08-02] MEDS ORDERED: hydrALAZINE 100 MG TAB PO STA (02:37)
[2020-08-02] MEDS ORDERED: carvediloL 6.25 MG TAB PO STA (02:37)
[2020-08-02 02:57] LABS: INR 0.98 (0.87-1.13)
[2020-08-02] MEDS ORDERED: MORPHINE 2 MG/1 ML INJ IV PRN (03:09)
[2020-08-02] MEDS ORDERED: MAGNESIUM HYDROXIDE (MOM) ORAL LIQD UDC PO PRN (03:09)
[2020-08-02] MEDS ORDERED: ACETAMINOPHEN 325 MG TAB PO PRN (03:09)
[2020-08-02] MEDS ORDERED: ONDANSETRON 4 MG/2 ML INJ IV PRN (03:09)
[2020-08-02] MEDS ORDERED: carvediloL 6.25 MG TAB ONE (03:19)
[2020-08-02] MEDS ORDERED: hydrALAZINE 100 MG TAB ONE (03:19)
[2020-08-02] MEDS ORDERED: amLODIPine 10 MG TAB ONE (03:19)
--- NOTE | 2020-08-02 03:20 | History and Physical Report ---
History of Present Illness Date of examination: 08/02/20 Date of admission: 08/02/20 02:12 Chief complaint: Shortness of Breath Lower extremity swelling History of present illness: Patient is a 54-year-old female with known history of COPD, CHF with ejection fraction of 45 to 50%, hypertension, history of DVT, and chronic kidney disease presented to the emergency room today Complaining of lower extremity swelling, unintentional weight gain, cough and shortness of breath. She denies any fever or chills, no chest pain, no headache or dizziness, she denies nausea or vomiting, however she states she has had some loss of appetite and loss of taste. She denies any sick contacts and no recent travel. She denies any contact with anyone with COVID-19. Upon arrival in the emergency room patient was slightly hypoxic was placed on 2 L of oxygen by nasal cannula with significant improvement in her oxygen saturation. Work-up in the emergency room today Chest X-ray reveals - Bilateral lung base opacities with small bilateral pleural effusions. No pneumothorax. Patient be admitted for CHF exacerbation and or underlying pneumonia. Past History Past Medical History: COPD, DVT, hypertension, renal failure, other (Hep C,) Past Surgical History: Other (Kidney stones) Social history: smoking (current daily smoker, cocaine se), other (Uses Cocaine occasionally) Family history: no significant family history Medications and Allergies Allergies Allergy/AdvReac Type Severity Reaction Status Date / Time No Known Allergies Allergy Verified 06/21/19 16:18 Home Medications Medication Instructions Recorded Confirmed Last Taken Type Aspirin EC [Halfprin EC] 81 mg PO QDAY #30 tablet. 02/17/20 Unknown Rx AtorvaSTATin 40 mg PO DAILY #30 02/17/20 Unknown Rx Lasix TAB 40 mg PO DAILY #30 02/17/20 Unknown Rx amLODIPine 10 mg PO QDAY #30 tablet 02/17/20 Unknown Rx carvediloL [Coreg] 6.25 mg PO BID #60 tablet 02/17/20 Unknown Rx hydrALAZINE [Apresoline TAB] 100 mg PO Q8HR #90 tab 02/17/20 Unknown Rx Rivaroxaban [Xarelto Starter Pack] 1 dose PO BID #1 tab.ds.pk 04/20/20 Unknown Rx Active Meds: Active Medications Acetaminophen (Tylenol) 650 mg PO Q4H PRN PRN Reason: Pain MILD(1-3)/Fever >100.5/[place] Furosemide (Lasix) 40 mg IV BID@0600,1800 CORNELIA Heparin Sodium (Porcine) (Heparin) 5,000 unit SUB-Q Q8HR CORNELIA Ceftriaxone Sodium (Rocephin/Ns 2 Gm/100 Ml) 2 gm in 100 mls @ 200 mls/hr IV Q24HR CORNELIA; Protocol Azithromycin 500 mg/ Sodium (Chloride) 250 mls @ 250 mls/hr IV Q24HR CORNELIA; Protocol Magnesium Hydroxide (Milk Of Magnesia) 30 ml PO Q4H PRN PRN Reason: Constipation Morphine Sulfate (Morphine) 2 mg IV Q4H PRN PRN Reason: Pain, Moderate (4-6) Ondansetron HCl (Zofran) 4 mg IV Q8H PRN PRN Reason: Nausea And Vomiting Sodium Chloride (Sodium Chloride Flush Syringe 10 Ml) 10 ml IV BID [facility] Sodium Chloride (Sodium Chloride Flush Syringe 10 Ml) 10 ml IV PRN PRN PRN Reason: LINE FLUSH Review of Systems Constitutional: no fever, no chills Ears, nose, mouth and throat: no nasal congestion, no sore throat Cardiovascular: no chest pain, no palpitations Respiratory: shortness of breath, no cough Gastrointestinal: no abdominal pain, no nausea Genitourinary Female: no pelvic pain, no flank pain, no dysuria, no hematuria Musculoskeletal: no neck pain, no low back pain Integumentary: no rash, no pruritis Neurological: no headaches, no confusion Psychiatric: no anxiety, no depression Exam - Constitutional Vitals: Temp Pulse Resp BP Pulse Ox 98.5 F 84 28 H 183/95 100 08/02/20 01:53 08/02/20 02:51 08/02/20 01:53 08/02/20 02:51 08/02/20 01:53 General appearance: Present: no acute distress, well-nourished - EENT Eyes: Present: PERRL, EOM intact. Absent: scleral icterus ENT: hearing intact, clear oral mucosa, dentition normal - Neck Neck: Present: supple, normal ROM - Respiratory Respiratory effort: normal Respiratory: bilateral: rales - Cardiovascular Rhythm: regular Heart Sounds: Present: S1 & S2. Absent: gallop, systolic murmur, diastolic murmur, rub - Extremities Extremities: no ischemia, pulses intact, pulses symmetrical, Full ROM Extremity abnormal: edema (3+ Bilateral lower extremity edema) Peripheral Pulses: within normal limits - Abdominal General gastrointestinal: Present: soft, non-tender, non-distended, normal bowel sounds. Absent: mass - Integumentary Integumentary: Present: clear, warm, dry. Absent: rash - Musculoskeletal Musculoskeletal: strength equal bilaterally - Psychiatric Psychiatric: appropriate mood/affect, intact judgment & insight, memory intact, cooperative - Neurologic Neurologic: CNII-XII intact, focal deficits, moves all extremities HEART Score - HEART Score Troponin: Troponin T 0.102 ng/mL (0.00-0.029) H* 08/01/20 23:31 Results - Labs CBC & Chem 7: 08/01/20 20:57 08/02/20 02:13 Labs: Abnormal lab results 08/01/20 08/01/20 08/01/20 Range/Units 20:57 20:57 23:31 RDW 16.4 H (13.2-15.2) % Cecil % (Auto) 7.9 H (0.0-7.3) % Lymph # (Auto) 1.0 L (1.2-5.4) K/mm3 Seg Neutrophils % 73.1 H (40.0-70.0) % Chloride 107.1 H (98-107) mmol/L Carbon Dioxide 18 L (22-30) mmol/L BUN 50 H (7-17) mg/dL Creatinine 3.8 H (0.6-1.2) mg/dL Glucose 111 H (65-100) mg/dL Calcium 8.0 L (8.4-10.2) mg/dL Troponin T 0.094 H 0.102 H* (0.00-0.029) ng/mL NT-Pro-B Natriuret Pep 98210 H (0-900) pg/mL 08/02/20 Range/Units 02:13 RDW (13.2-15.2) % Cecil % (Auto) (0.0-7.3) % Lymph # (Auto) (1.2-5.4) K/mm3 Seg Neutrophils % (40.0-70.0) % Chloride (98-107) mmol/L Carbon Dioxide (22-30) mmol/L BUN (7-17) mg/dL Creatinine (0.6-1.2) mg/dL Glucose 103 H (65-100) mg/dL Calcium (8.4-10.2) mg/dL Troponin T (0.00-0.029) ng/mL NT-Pro-B Natriuret Pep (0-900) pg/mL Assessment and Plan - Patient Problems (1) CHF (congestive heart failure) Current Visit: Yes Status: Chronic Plan to address problem: Patient placed on diuretics. Will monitor inputs and outputs and also monitor daily weight. (2) Hypoxia Current Visit: Yes Status: Acute Plan to address problem: Possibly secondary to CHF versus pneumonia. Patient placed on oxygen and will keep O2 saturation greater or equal to 94%. (3) Suspected 2019 novel coronavirus infection Current Visit: Yes Status: Acute Plan to address problem: Patient placed on isolation precautions. We will await COVID-19 testing. (4) History of DVT of lower extremity Current Visit: Yes Status: Acute Plan to address problem: Patient on anticoagulation. (5) Acute on chronic renal failure Current Visit: No Status: Acute Qualifiers: Acute renal failure type: unspecified Chronic kidney disease stage: stage 4 (severe) Qualified Code(s): N17.9 - Acute kidney failure, unspecified; N18.4 - Chronic kidney disease, stage 4 (severe) Plan to address problem: We will monitor BUN and creatinine. We will also place a consult to nephrology for evaluation. (6) Hypertension Current Visit: No Status: Chronic Qualifiers: Hypertension type: essential hypertension Qualified Code(s): I10 - Essential (primary) hypertension Plan to address problem: We will resume routine home medications and monitor vital signs closely. (7) Full code status Current Visit: Yes Status: Acute
[2020-08-02 04:03] LABS: C-Reactive Protein 0.1 mg/dL (0.00-1.30)
[2020-08-02 04:32] LABS: Chol/HDL Ratio 2.54 %
[2020-08-02] MEDS: FUROSEMIDE 40 MG/4 ML INJ IV SCH ×2 (06:19→18:23)
--- NOTE | 2020-08-02 08:55 | Consultation ---
History of Present Illness - Reason for Consult Consult date: 08/02/20 acute renal failure, chronic renal failure - History of Present Illness The paatient with CHF and CKD was admitted for worsening swelling volume overload and shortness of breath, she was found to be hypoxic and was started on O2 supplement on lasix. renal consult was requested due to worsening kidney function Past History Past Medical History: COPD, DVT, hypertension, renal failure, other (Hep C,) Past Surgical History: Other (Kidney stones) Social history: smoking (current daily smoker, cocaine se), other (Uses Cocaine occasionally) Family history: no significant family history Medications and Allergies Allergies Allergy/AdvReac Type Severity Reaction Status Date / Time No Known Allergies Allergy Verified 06/21/19 16:18 Home Medications Medication Instructions Recorded Confirmed Last Taken Type Aspirin EC [Halfprin EC] 81 mg PO QDAY #30 tablet.dr 02/17/20 Unknown Rx AtorvaSTATin 40 mg PO DAILY #30 02/17/20 Unknown Rx Lasix TAB 40 mg PO DAILY #30 02/17/20 Unknown Rx amLODIPine 10 mg PO QDAY #30 tablet 02/17/20 Unknown Rx carvediloL [Coreg] 6.25 mg PO BID #60 tablet 02/17/20 Unknown Rx hydrALAZINE [Apresoline TAB] 100 mg PO Q8HR #90 tab 02/17/20 Unknown Rx Rivaroxaban [Xarelto Starter Pack] 1 dose PO BID #1 tab.ds.pk 04/20/20 Unknown Rx Active Meds: Active Medications Acetaminophen (Tylenol) 650 mg PO Q4H PRN PRN Reason: Pain MILD(1-3)/Fever >100.5/[place] Furosemide (Lasix) 40 mg IV BID@0600,1800 CORNELIA Last Admin: 08/02/20 06:19 Dose: 40 mg Documented by: Heparin Sodium (Porcine) (Heparin) 5,000 unit SUB-Q Q8HR CORNELIA Ceftriaxone Sodium (Rocephin/Ns 2 Gm/100 Ml) 2 gm in 100 mls @ 200 mls/hr IV Q24H CORNELIA; Protocol Azithromycin 500 mg/ Sodium (Chloride) 250 mls @ 250 mls/hr IV Q24H CORNELIA; Protocol Magnesium Hydroxide (Milk Of Magnesia) 30 ml PO Q4H PRN PRN Reason: Constipation Morphine Sulfate (Morphine) 2 mg IV Q4H PRN PRN Reason: Pain, Moderate (4-6) Ondansetron HCl (Zofran) 4 mg IV Q8H PRN PRN Reason: Nausea And Vomiting Sodium Chloride (Sodium Chloride Flush Syringe 10 Ml) 10 ml IV BID CORNELIA Sodium Chloride (Sodium Chloride Flush Syringe 10 Ml) 10 ml IV PRN PRN PRN Reason: LINE FLUSH Review of Systems All systems: negative (SOB, swelling in legs) Exam - Vital Signs Vital signs: Vital Signs Temp Pulse Resp BP Pulse Ox 98.5 F 86 28 H 188/114 100 08/02/20 01:53 08/02/20 01:53 08/02/20 01:53 08/02/20 01:53 08/02/20 01:53 - General Appearance General appearance: well-developed, well-nourished EENT: ATNC, PERRL Neck: Present: neck supple Respiratory: Decreased Breath Sounds Heart: regular, S1S2 Integumentary: no rash, warm and dry Neurologic: no focal deficit, no asterixis, alert and oriented x3 Musculoskeletal: Present: deferred (edema in BLE) Psychiatric: mood/affect appropriate, cooperative Results - Lab Results 08/01/20 20:57 08/02/20 02:13 Most recent lab results Calcium 8.0 mg/dL (8.4-10.2) L 08/01/20 20:57 Magnesium 2.20 mg/dL (1.7-2.3) 08/02/20 02:13 Assessment and Plan SHIVANI on CKD likely CRS Hypoxic resp failure CHF Pneumonia baseline Cr ~3 cont lasix for now urine lytes, protein and eos ordered renal US ordered strict I&O Daily weight renally dose meds Avoid nephrotoxins Mike Hernandez MD [phone]
[2020-08-02] MEDS: HEPARIN 5,000 UNIT/1 ML VIAL SUB-Q SCH ×2 (13:45→21:55)
--- NOTE | 2020-08-02 14:33 | Consultation ---
History of Present Illness - Reason for Consult Consult date: 08/02/20 - History of Present Illness 54-year-old female past medical history COPD, CHF, hypertension admitted to the hospital complaining of lower extremity swelling CKD, weight gain, cough and shortness of breath. She otherwise denies any symptoms, including fevers, sweats, chills. Afebrile with a normal white count. Currently seeing ceftriaxone azithromycin. Blood cultures currently pending. Imaging personally viewed: Chest x-ray: Bilateral opacities edema versus infection. Review of Systems: Bold if positive, otherwise negative General: fevers, chills, rigors HEENT: visual disturbance, diplopia, eye pain Respiratory: cough, sputum, hemoptysis, shortness of breath Cardiovascular: chest pain, syncope Gastrointestinal: nausea, vomiting, diarrhea, abdominal pain Genitourinary: dysuria, hematuria, flank pain Musculoskeletal: neck pain, back pain, joint pain, edema Neurologic: headaches, seizures Hematologic: easy bruising or bleeding Endocrine: night sweats, acute weight loss Skin: rash, jaundice, redness Psychiatric: suicidal, homicidal ideation Past History Past Medical History: COPD, DVT, hypertension, renal failure, other (Hep C,) Past Surgical History: Other (Kidney stones) Social history: smoking (current daily smoker, cocaine se), other (Uses Cocaine occasionally) Family history: no significant family history Medications and Allergies Allergies Allergy/AdvReac Type Severity Reaction Status Date / Time No Known Allergies Allergy Verified 06/21/19 16:18 Home Medications Medication Instructions Recorded Confirmed Last Taken Type Aspirin EC [Halfprin EC] 81 mg PO QDAY #30 tablet. 02/17/20 Unknown Rx AtorvaSTATin 40 mg PO DAILY #30 02/17/20 Unknown Rx Lasix TAB 40 mg PO DAILY #30 02/17/20 Unknown Rx amLODIPine 10 mg PO QDAY #30 tablet 02/17/20 Unknown Rx carvediloL [Coreg] 6.25 mg PO BID #60 tablet 02/17/20 Unknown Rx hydrALAZINE [Apresoline TAB] 100 mg PO Q8HR #90 tab 02/17/20 Unknown Rx Rivaroxaban [Xarelto Starter Pack] 1 dose PO BID #1 tab.ds.pk 04/20/20 Unknown Rx Active Meds: Active Medications Acetaminophen (Tylenol) 650 mg PO Q4H PRN PRN Reason: Pain MILD(1-3)/Fever >100.5/[place] Furosemide (Lasix) 40 mg IV BID@0600,1800 [facility] Last Admin: 08/02/20 06:19 Dose: 40 mg Documented by: Heparin Sodium (Porcine) (Heparin) 5,000 unit SUB-Q Q8HR [facility] Last Admin: 08/02/20 13:45 Dose: 5,000 unit Documented by: Ceftriaxone Sodium (Rocephin/Ns 2 Gm/100 Ml) 2 gm in 100 mls @ 200 mls/hr IV Q24H CORNELIA; Protocol Azithromycin 500 mg/ Sodium (Chloride) 250 mls @ 250 mls/hr IV Q24H CORNELIA; Protocol Magnesium Hydroxide (Milk Of Magnesia) 30 ml PO Q4H PRN PRN Reason: Constipation Morphine Sulfate (Morphine) 2 mg IV Q4H PRN PRN Reason: Pain, Moderate (4-6) Ondansetron HCl (Zofran) 4 mg IV Q8H PRN PRN Reason: Nausea And Vomiting Sodium Chloride (Sodium Chloride Flush Syringe 10 Ml) 10 ml IV BID [facility] Last Admin: 08/02/20 10:41 Dose: 10 ml Documented by: Sodium Chloride (Sodium Chloride Flush Syringe 10 Ml) 10 ml IV PRN PRN PRN Reason: LINE FLUSH Physical Examination - Physical Exam Narrative exam: Physical exam deferred due to PPE conservation strategy. Please refer to primary team's note. - Constitutional Vitals: Vital Signs Temp Pulse Resp BP Pulse Ox 97.8 F 70 20 162/88 90 08/02/20 11:48 08/02/20 11:48 08/02/20 11:48 08/02/20 11:48 08/02/20 11:48 Temperature -Last 24 Hours Temperature 97.8 F Temperature 98.5 F Results - Labs CBC & Chem 7: 08/01/20 20:57 08/02/20 02:13 Labs: Abnormal lab results 08/01/20 08/01/20 08/01/20 Range/Units 20:57 20:57 23:31 RDW 16.4 H (13.2-15.2) % Posey % (Auto) 7.9 H (0.0-7.3) % Lymph # (Auto) 1.0 L (1.2-5.4) K/mm3 Seg Neutrophils % 73.1 H (40.0-70.0) % Chloride 107.1 H (98-107) mmol/L Carbon Dioxide 18 L (22-30) mmol/L BUN 50 H (7-17) mg/dL Creatinine 3.8 H (0.6-1.2) mg/dL Glucose 111 H (65-100) mg/dL Calcium 8.0 L (8.4-10.2) mg/dL Lactate Dehydrogenase (91-180) units/L Troponin T 0.094 H 0.102 H* (0.00-0.029) ng/mL NT-Pro-B Natriuret Pep 36924 H (0-900) pg/mL 08/02/20 Range/Units 02:13 RDW (13.2-15.2) % Posey % (Auto) (0.0-7.3) % Lymph # (Auto) (1.2-5.4) K/mm3 Seg Neutrophils % (40.0-70.0) % Chloride (98-107) mmol/L Carbon Dioxide (22-30) mmol/L BUN (7-17) mg/dL Creatinine (0.6-1.2) mg/dL Glucose 103 H (65-100) mg/dL Calcium (8.4-10.2) mg/dL Lactate Dehydrogenase 265 H (91-180) units/L Troponin T (0.00-0.029) ng/mL NT-Pro-B Natriuret Pep (0-900) pg/mL Assessment and Plan Cultures: Blood culture 08/02/2020 pending A/P: 54-year-old female past medical history COPD, CHF, hypertension admitted with likely CHF exacerbation, COVID-19 PUI #Bilateral lower extremity edema: Likely due to CHF exacerbation. #Shortness of breath: As above, ruling out COVID-19 #Covid PUI: Pending test results #CKD: Renally adjust antibiotics Recs: -Normal procalcitonin, even with CKD. Okay to stop antibiotics -Follow-up COVID-19 testing -Fluid overload management per primary Thank you for the consult, we will continue to follow. Rachel Garcia MD O: [phone] F: [phone]
[2020-08-02] MEDS ORDERED: AZITHROMYCIN 500 MG in SODIUM CHLORIDE 0.9% 250ML 250 ML IV SCH (22:00)
[2020-08-02] MEDS ORDERED: cefTRIAXone/NS 2 GM/100 ML 2 GM/100 ML BAG IV SCH (22:00)
[2020-08-03] MEDS: FUROSEMIDE 40 MG/4 ML INJ IV SCH ×2 (05:16→18:46)
[2020-08-03] MEDS: HEPARIN 5,000 UNIT/1 ML VIAL SUB-Q SCH ×2 (05:16→14:38)
--- NOTE | 2020-08-03 10:16 | Progress Note ---
Assessment and Plan SHIVANI on CKD likely CRS Hypoxic resp failure CHF Pneumonia labs are pending this AM baseline Cr ~3 cont lasix for now urine lytes, protein and eos ordered, pending renal US ordered, pending strict I&O Daily weight renally dose meds Avoid nephrotoxins Mike Hernandez MD [phone] Subjective Date of service: 08/03/20 Principal diagnosis: SHIVANI Interval history: comfortable, denies acute issues Objective - Vital Signs Vital signs: Vital Signs - 12hr 08/03/20 08/03/20 04:10 06:39 Temperature 97.6 F Respiratory 24 Rate Blood Pressure 175/95 O2 Sat by Pulse 95 Oximetry - General Appearance General appearance: well-developed, well-nourished, appears stated age EENT: ATNC, PERRL, mucous membranes moist Neck: no JVD, no carotid bruit Respiratory: Present: Clear to Ascultation. Absent: Rales, Ronchi Cardiology: regular, S1S2 Gastrointestinal: normoactive bowel sounds, no tenderness, no distended Integumentary: no rash, warm and dry Neurologic: no focal deficit, no asterixis, alert and oriented x3 Musculoskeletal: other (no edema in BLE) Psychiatric: cooperative - Lab 08/01/20 20:57 08/02/20 02:13 Most recent lab results Calcium 8.0 mg/dL (8.4-10.2) L 08/01/20 20:57 Magnesium 2.20 mg/dL (1.7-2.3) 08/02/20 02:13 Medications & Allergies - Medications Allergies/Adverse Reactions: Allergies No Known Allergies Allergy (Verified 06/21/19 16:18) Home Medications: Home Medications Medication Instructions Recorded Confirmed Last Taken Type Aspirin EC [Halfprin EC] 81 mg PO QDAY #30 tablet. 02/17/20 Unknown Rx AtorvaSTATin 40 mg PO DAILY #30 02/17/20 Unknown Rx Lasix TAB 40 mg PO DAILY #30 02/17/20 Unknown Rx amLODIPine 10 mg PO QDAY #30 tablet 02/17/20 Unknown Rx carvediloL [Coreg] 6.25 mg PO BID #60 tablet 02/17/20 Unknown Rx hydrALAZINE [Apresoline TAB] 100 mg PO Q8HR #90 tab 02/17/20 Unknown Rx Rivaroxaban [Xarelto Starter Pack] 1 dose PO BID #1 tab.ds.pk 04/20/20 Unknown Rx Active Medications: Generic Name Dose Route Start Last Admin Trade Name Freq PRN Reason Stop Dose Admin Acetaminophen 650 mg 08/02/20 03:09 Tylenol PO Q4H PRN Pain MILD(1-3)/Fever >100.5/[place] Furosemide 40 mg 08/02/20 06:00 08/03/20 05:16 Lasix IV 40 mg BID@0600,1800 CORNELIA Administration Heparin Sodium (Porcine) 5,000 unit 08/02/20 14:00 08/03/20 05:16 Heparin SUB-Q 5,000 unit Q8HR CORNELIA Administration Magnesium Hydroxide 30 ml 08/02/20 03:09 Milk Of Magnesia PO Q4H PRN Constipation Morphine Sulfate 2 mg 08/02/20 03:09 Morphine IV Q4H PRN Pain, Moderate (4-6) Ondansetron HCl 4 mg 08/02/20 03:09 Zofran IV Q8H PRN Nausea And Vomiting Sodium Chloride 10 ml 08/02/20 10:00 08/02/20 21:55 Sodium Chloride Flush Syringe 10 Ml IV 10 ml BID CORNELIA Administration Sodium Chloride 10 ml 08/02/20 03:09 Sodium Chloride Flush Syringe 10 Ml IV PRN PRN LINE FLUSH
--- NOTE | 2020-08-03 13:20 | Progress Note ---
Assessment and Plan Cultures: Blood culture 08/02/2020 pending COVID-19 negative A/P: 54-year-old female past medical history COPD, CHF, hypertension admitted with likely CHF exacerbation, COVID-19 PUI #Bilateral lower extremity edema: Likely due to CHF exacerbation. #Shortness of breath: As above, Covid negative #Covid PUI: Pending test results #CKD: Renally adjust antibiotics Recs: -Normal procalcitonin, even with CKD. Remain off antibiotics. -Fluid overload management per primary Thank you for the consult, we will sign off. Please call questions. Rachel Garcia MD O: [phone] F: [phone] Subjective Date of service: 08/03/20 Principal diagnosis: SHIVANI Interval history: Afebrile, normal white count. Covid testing negative Objective - Exam Narrative Exam: Physical exam deferred due to PPE conservation strategy. Please refer to primary team's note. - Constitutional Vitals: Vital Signs Temp Pulse Resp BP Pulse Ox 97.6 F 74 24 175/95 95 08/03/20 04:10 08/02/20 21:00 08/03/20 04:10 08/03/20 04:10 08/03/20 06:39 Temperature -Last 24 Hours Temperature 97.6 F Temperature 98.1 F Temperature 98.1 F Temperature 98.5 F - Labs CBC & Chem 7: 08/01/20 20:57 08/02/20 02:13
[2020-08-03 14:46] VITALS: BP 178/105
--- NOTE | 2020-08-03 16:53 | Progress Note ---
Subjective Date of service: 08/02/20 Principal diagnosis: SHIVANI Objective - Constitutional Vitals: Vital Signs - 12hr 08/03/20 08/03/20 06:39 14:43 Temperature 98.5 F Pulse Rate 73 Respiratory 20 Rate Blood Pressure 178/105 [Right] O2 Sat by Pulse 95 95 Oximetry General appearance: Present: no acute distress, well-nourished - EENT Eyes: PERRL, EOM intact ENT: hearing intact, clear oral mucosa Ears: bilateral: normal - Neck Neck: supple, normal ROM - Respiratory Respiratory effort: normal Respiratory: bilateral: CTA - Breasts Breasts: normal - Cardiovascular Rhythm: regular Heart Sounds: Present: S1 & S2. Absent: gallop, rub Extremities: pulses intact, No edema, normal color, Full ROM - Gastrointestinal General gastrointestinal: Present: soft, non-tender, non-distended, normal bowel sounds - Genitourinary Female genitourinary: normal - Integumentary Integumentary: clear, warm, dry - Musculoskeletal Musculoskeletal: 1, strength equal bilaterally - Neurologic Neurologic: moves all extremities - Psychiatric Psychiatric: memory intact, appropriate mood/affect, intact judgment & insight - Labs CBC & Chem 7: 08/01/20 20:57 08/02/20 02:13 HEART Score - HEART Score Troponin: Troponin T 0.102 ng/mL (0.00-0.029) H* 08/01/20 23:31
== END 2020-08-03 19:31 | disposition left against medical advice (07) | DRG 683 ==
LOC: ED 20:07 → 3A 08-02 02:12 → OBSVTOIN 08-03 13:29
PROVIDERS: ADMIT Internal Medicine Geriatric Medicine; ATTEND Internal Medicine
DX: N17.9 Acute kidney failure, unspecified (principal); I13.0 Hypertensive heart and chronic kidney disease with heart failure and stage 1 through stage 4 chronic kidney disease, or unspecified chronic kidney disease; Z20.828 Contact with and (suspected) exposure to other viral communicable diseases; N18.4 Chronic kidney disease, stage 4 (severe); I50.9 Heart failure, unspecified; J44.9 Chronic obstructive pulmonary disease, unspecified; F17.210 Nicotine dependence, cigarettes, uncomplicated; Z86.718 Personal history of other venous thrombosis and embolism
CPT/HCPCS: 36415; 71046; 80048; 80061; 82140; 82550; 82728; 82947; 83615; 83735; 83880; 84145; 84484; 85025; 85610; 86140; 87040; 93005; 96361; 96374; 96375; G0378; J0456; J0696; J1100; J1644; J1940; J7050; U0003-CS

== ENCOUNTER 2021-05-29 06:10 | Day surgery (SDC) | payer MEDICARE ==
[~2021-05-29 06:10] MED LIST: HEPARIN 10,000 UNITS/10 ML VIAL IV ONE; SODIUM CHLORIDE 0.9% 250 ML IVPB IV ONE; SODIUM CHLORIDE 0.9% IRR 1,500 ML BOTTLE IR ONE; SODIUM CHLORIDE 0.9% IRR 500 ML BOTTLE IR ONE; SODIUM CHLORIDE 0.9% P/F 10 ML VIAL IV ONE; ceFAZolin/STERILE WATER 2 GM/20 ML SYRINGE IV NR; rifAMPin 600 MG VIAL IV ONE
[2021-05-29] MEDS ORDERED: LIDOCAINE PF 100 MG/5 ML (CARDIAC SYRINGE) IV ONE (06:58)
[2021-05-29] MEDS ORDERED: propofoL 200 MG/20 ML VIAL IV ONE ×2 (06:59→11:37)
--- NOTE | 2021-05-29 07:15 | Anesthesia Consultation ---
Anesthesia Consult and Med Hx Date of service: 05/29/21 - Airway Anesthetic Teeth Evaluation: Poor ROM Head & Neck: Adequate Mental/Hyoid Distance: Adequate Mallampati Class: Class II Intubation Access Assessment: Good - Pulmonary Exam CTA: Yes - Cardiac Exam Cardiac Exam: RRR - Pre-Operative Health Status ASA Pre-Surgery Classification: ASA3 Proposed Anesthetic Plan: MAC Nerve Block: SCB - Pulmonary Hx Smoking: Yes (1 PACK CIGS/DAY) Hx Asthma: No Hx Respiratory Symptoms: No SOB: No COPD: Yes Home Oxygen Therapy: No Hx Pneumonia: Yes (12/2020) Hx Sleep Apnea: No - Cardiovascular System Hx Hypertension: Yes Hx Coronary Artery Disease: No (CHF) Hx Heart Attack/AMI: No Hx Angina: No Hx Percutaneous Transluminal Coronary Angioplasty (PTCA): No Hx Cardia Arrhythmia: No Hx Pacemaker: No Hx Internal Defibrillator: No Hx Valvular Heart Disease: No Hx Heart Murmur: No Hx Peripheral Vascular Disease: No - Central Nervous System Hx Neuromuscular Disorder: No Hx Seizures: No CVA: No Hx Back Pain: No Hx Psychiatric Problems: Yes - Gastrointestinal Hx Ulcer: No Hx Gastroesophageal Reflux Disease: No - Endocrine Hx Renal Disease: No Hx End Stage Renal Disease: Yes Hx Cirrhosis: No Hx Liver Disease: No Hx Insulin Dependent Diabetes: No Hx Non-Insulin Dependent Diabetes: No Hx Thyroid Disease: No Hx Hypothyroidism: No Hx Hyperthyroidism: No - Hematic Hx Anemia: Yes Hx Sickle Cell Disease: No - Other Systems Hx Alcohol Use: No Hx Substance Use: Yes (H/X CRACK COCAINE USE.) Hx Cancer: No Hx Obesity: No
--- NOTE | 2021-05-29 07:24 | Anesthesia Day of Surgery ---
Anesthesia Day of Surgery - Day of Surgery Patient Examined: Yes Patient H&P Reviewed: Yes Patient is NPO: Yes Beta Blockers: Yes (within 24 hrs)
[2021-05-29] MEDS ORDERED: BUPIVACAINE/PF (0.5%) 5 MG/1 ML 30 ML VIAL INFILTRATI ONE (07:25)
[2021-05-29] MEDS ORDERED: MIDAZOLAM 2 MG/2 ML INJ ONE (07:27)
[2021-05-29] MEDS ORDERED: SODIUM CHLORIDE 0.9% 1000 ML 1,000 ML ONE (07:28)
[2021-05-29] MEDS ORDERED: SODIUM CHLORIDE 0.9% 1000 ML 1,000 ML IV SCH (08:00)
[2021-05-29 08:03] LABS: Hematocrit 26.6 % (30.3-42.9); Hemoglobin 9.1 gm/dl (10.1-14.3); Mean Corpuscular HGB Conc 34 % (30-34); Mean Corpuscular Volume 92 fl (79-97); Platelet Count 108 K/mm3 (140-440); Red Cell Distribution Width 14.7 % (13.2-15.2)
--- NOTE | 2021-05-29 08:22 | Short Stay Summary ---
Short Stay Documentation Date of service: 05/29/21 Narrative H&P: The patient is a 56-year-old female with a history of end-stage renal disease who is currently on hemodialysis through a right internal jugular permacath. She is in need of permanent dialysis access and is right hand dominant. She had a vein mapping that demonstrated she is not an adequate candidate for creation of a arteriovenous fistula so she will require creation of an arteriovenous graft. She was given the risk, benefits, and alternative procedures and has consented to the procedure. She has requested creation of a graft in her forearm. I will evaluate the brachial vein in the operating room as well as the radial artery to see if they are adequate for creation of a forearm straight graft. If they are not I will create a brachial artery to axillary vein graft. I discussed this with the patient expressed understanding and agrees with the plan. - History Past Medical History: CAD, COPD, dialysis, ESRD, heart failure, hypertension, hyperlipidemia, other (Hepatitis C) Social history: other (Removal of kidney stones) - Allergies and Medications Current Medications: Allergies No Known Allergies Allergy (Verified 05/13/21 14:53) Home Medications Medication Instructions Recorded Confirmed Last Taken Type AtorvaSTATin 40 mg PO DAILY #30 02/17/20 05/13/21 Unknown Rx Losartan [Cozaar] 100 mg PO QDAY 05/13/21 05/13/21 Unknown History Melatonin [Melatonin 10MG CAP] 10 mg PO QHS 05/13/21 05/13/21 Unknown History carvediloL [Coreg] 12.5 mg PO BID 05/13/21 05/13/21 Unknown History traZODone [Desyrel] 50 mg PO QHS 05/13/21 05/13/21 Unknown History Active Medications Cefazolin Sodium (Cefazolin/Sterile Water 2 Gm/20 Ml Syringe) 2 gm IV PREOP NR Stop: 05/29/21 20:00 Sodium Chloride (Nacl 0.9% 1000 Ml) 1,000 mls @ 42 mls/hr IV DIRECT CORNELIA - Physical exam General appearance: no acute distress Lungs: Normal air movement Breasts: deferred Heart: Regular rate Gastrointestinal: normal Female Genitourinary: deferred Rectal Exam: deferred Extremities: no ischemia, pulses intact (Palpable radial pulses bilaterally) - Brief post op/procedure progress note Date of procedure: 05/29/21 Pre-op diagnosis: End-Stage Renal Disease Post-op diagnosis: same Procedure: Creation of Left Radial Artery to Left Brachial Vein Arteriovenous Graft Anesthesia: MAC, regional Surgeon: TRISTA OSORIO Estimated blood loss: minimal Pathology: none Condition: stable - Disposition Condition at discharge: Good Disposition: DC-01 TO HOME OR SELFCARE Short Stay Discharge Plan Activity: other (No heavy lifting with left arm.) Wound: open to air, keep clean and dry, other (Okay to wash the left arm wounds with soap and water but do not soak in water for 2 weeks.) Follow up with: [facility] MD JOHNNY [Primary Care Provider] - 7 Days TRISTA OSORIO MD [Staff Physician] - 14 Days Prescriptions: HYDROcodone/APAP 5-325 [[place] 5/325] 1 each PO Q4HR PRN #30 tablet PRN Reason: Pain Clopidogrel [Plavix] 75 mg PO QDAY #90 tablet
[2021-05-29 08:39] LABS: Calcium 9.2 mg/dL (8.4-10.2)
[2021-05-29] MEDS ORDERED: dexAMETHasone 20 MG/5 ML VIAL ONE (09:25)
[2021-05-29] MEDS ORDERED: ONDANSETRON 4 MG/2 ML INJ ONE (09:25)
[2021-05-29] MEDS ORDERED: SODIUM CHLORIDE 0.9% IRR 1,500 ML BOTTLE IR ONE (09:43)
[2021-05-29] MEDS ORDERED: SODIUM CHLORIDE 0.9% 250 ML IVPB IV ONE (09:43)
[2021-05-29] MEDS ORDERED: SODIUM CHLORIDE 0.9% P/F 10 ML VIAL IV ONE (09:43)
[2021-05-29] MEDS ORDERED: SODIUM CHLORIDE 0.9% IRR 500 ML BOTTLE IR ONE (09:43)
[2021-05-29] MEDS ORDERED: rifAMPin 600 MG VIAL IV ONE (09:43)
[2021-05-29] MEDS ORDERED: HEPARIN 10,000 UNITS/10 ML VIAL IV ONE ×2 (09:43)
[2021-05-29] MEDS ORDERED: fentaNYL 100 MCG/2 ML INJ ONE ×2 (11:37→12:32)
[2021-05-29] MEDS ORDERED: HEPARIN 10,000 UNIT/1 ML VIAL IV NR (11:57)
--- NOTE | 2021-05-29 11:59 | Operative Report ---
Operative Report Operative Report: Date of procedure: May 29, 2021 Pre-operative diagnosis: End-Stage Renal Disease Post-operative diagnosis: Same Procedure(s): 1. Creation of Left Radial artery to Brachial Vein AV Graft with 4 mm Bovine Graft Artergraft Surgeon: Crow Magana MD Logging Superintendent: None Anesthesia: Regional/MAC EBL: Minimal Counts: Correct Complications: None Condition: Stable Findings: Successful Creation of Left Arm AV Graft with Palpable Thrill and Palpable Radial Pulse at the Completion of the Case. Specimen: None Indication: The patient is a 56-year-old female with a history of end-stage renal disease who is currently on hemodialysis through a right internal jugular permacath. She is in need of long-term dialysis access and does not have adequate vein for creation of an arteriovenous fistula so she requires creation of an arteriovenous graft. She was given the risk, benefits, and alternative proce dures and consented to the procedure. Description of Procedure: Prior to being transported to the operating room the patient had a regional block of the left arm performed. After the block was performed the patient was transported to the operating room and adequately sedated. The patient's left arm was then prepped and draped in normal sterile fashion. A transverse incision was created just below the antecubital crease and carried down to the brachial vein using sharp dissection. The vein was dissected circumferentially and then controlled with a vessel loop. I then made a longitudinal incision, just proximal to the wrist, and carried this down to the radial artery using sharp dissection. The radial artery was dissected circumferentially and controlled with the vessel loop of proximal and distal to the planned arteriotomy. A Jaylin-Wick tunneler was then used to tunnel from the radial artery incision to the brachial vein incision and a rifampin soaked 4 mm bovine Artegraft was pulled through the tunnel. The graft was infused with heparinized saline to ensure that it was not kinked or twisted. I then beveled the arterial end of the graft. I systemically heparinized the patient with 3000 as of heparin IV and then clamped the radial artery with DeBakey clamps. I created an arteriotomy using an 11 blade and Shine scissors. I then created an end-to-side anastomosis using a 6-0 Prolene in running fashion. Prior to completing the anastomosis I used a 3 Diana to ensure that spasm in the radial artery was broken and then the pleated the anastomosis. I clamped the graft just proximal to the anastomosis and removed the clamps allowing flow in the artery. There was adequate hemostasis on the anastomosis. I then cut the graft to length and beveled the venous outflow into the graft. I used DeBakey clamps to clamp the brachial vein and then created a venotomy using 11 blade and Shine scissors. I then created an end-to-side anastomosis using a 6-0 Prolene in a running fashion. Prior to completing the anastomosis I flashed the venous outflow as well as the arterial inflow. I flushed the venotomy with heparinized saline and then completed the anastomosis. I removed all clamps allowing flow through the graft which had a palpable thrill. Hemostasis within the wound was achieved with a combination of direct pressure and Matthew. Once hemostasis was achieved the wounds were closed in 2 layers using a 3-0 Vicryl in running fashion the deep dermal layer and 4-0 Monocryl in running fashion the subcuticular layer and then dressed with Dermabond. The patient tolerated the procedure well. All sponge, needle, and instrument counts were correct. The patient was transported to the recovery area in stable condition.
[2021-05-29] MEDS ORDERED: CLOPIDOGREL 300 MG TAB PO SCH (12:00)
[2021-05-29] MEDS ORDERED: BACITRACIN ZINC OINT 28.4 GM TP ONE (12:28)
[2021-05-29] MEDS ORDERED: BUPIVACAINE/PF (0.25%) 2.5 MG/ML 30 ML VIAL INFILTRATI ONE ×2 (12:28→12:32)
[2021-05-29] MEDS ORDERED: LIDOCAINE (1%) 10 MG/1 ML VIAL 20 ML MDV ONE (12:28)
[2021-05-29] MEDS ORDERED: dexAMETHasone 4 MG/ML VIAL ONE (12:33)
[2021-05-29] MEDS ORDERED: ePHEDrine SULFATE 50 MG/1 ML INJ ONE (13:14)
[2021-05-29 14:40] VITALS: BP 111/56
--- NOTE | 2021-05-29 15:16 | Post Anesthesia Evaluation ---
- Post Anesthesia Evaluation Patient Participated: Yes Airway Patent: Yes Stable Respiratory Function: Yes Nausea/Vomiting: No Temp > 96.8F: Yes Pain Manageable: Yes Adequeate Hydration: Yes Anesthesia Complications: No Block Receding Appropriately: Yes Patient on Ventilator: No
== END 2021-05-29 12:30 | disposition home or self-care (01) ==
LOC: OR 06:10
PROVIDERS: ATTEND Surgery Vascular Surgery
DX: I13.2 Hypertensive heart and chronic kidney disease with heart failure and with stage 5 chronic kidney disease, or end stage renal disease (principal); I50.21 Acute systolic (congestive) heart failure; N18.6 End stage renal disease; I65.23 Occlusion and stenosis of bilateral carotid arteries; J44.9 Chronic obstructive pulmonary disease, unspecified; D64.9 Anemia, unspecified; E78.00 Pure hypercholesterolemia, unspecified; F41.9 Anxiety disorder, unspecified; F17.210 Nicotine dependence, cigarettes, uncomplicated; B18.2 Chronic viral hepatitis C; Z86.718 Personal history of other venous thrombosis and embolism; Z79.899 Other long term (current) drug therapy; Z98.890 Other specified postprocedural states; Z82.49 Family history of ischemic heart disease and other diseases of the circulatory system
CPT/HCPCS: 36415; 36830; 80048; 85027; C1757; C1768; J0690; J1100; J1644; J2001; J2250; J2405; J2704; J3010; J3490; J7030; J7050; 64450

== ENCOUNTER 2021-08-26 15:05 | Observation (INO) | payer MEDICARE ==
[2021-08-26] MEDS ORDERED: BENZOCAINE/MENTHOL LOZENGE MM PRN (15:32)
--- NOTE | 2021-08-26 15:32 | Event Note ---
ED Screening Note ED Screening Note: has not had hd x 1 m due to having covid co sob This initial assessment/diagnostic orders/clinical plan/treatment(s) is/are subject to change based on patients health status, clinical progression and re- assessment by fellow clinical providers in the ED. Further treatment and workup at subsequent clinical providers discretion. Patient/guardian urged not to elope from the ED as their condition may be serious if not clinically assessed and managed. Initial orders include: labs/HD EKG/xray
--- NOTE | 2021-08-26 16:08 | XRay Report ---
CHEST 2 VIEWS INDICATION / CLINICAL INFORMATION: sob. COMPARISON: 08/09/2021 FINDINGS: SUPPORT DEVICES: Stable, satisfactory device positioning. HEART / MEDIASTINUM: Stable cardiomegaly LUNGS / PLEURA: Small left pleural effusion. Bilateral interstitial edema. No pneumothorax. ADDITIONAL FINDINGS: No significant additional findings. IMPRESSION: 1. Cardiomegaly with bilateral interstitial edema and left pleural effusion. Signer Name: Zain Loyd MD Signed: 08/26/2021 4:03 PM Workstation Name: [id number]
[2021-08-26 16:14] LABS: Hematocrit 28.2 % (30.3-42.9); Hemoglobin 9.2 gm/dl (10.1-14.3); Mean Corpuscular HGB Conc 33 % (30-34); Mean Corpuscular Volume 92 fl (79-97); Platelet Count 151 K/mm3 (140-440); Red Blood Count 3.08 M/mm3 (3.65-5.03)
[2021-08-26 16:32] LABS: Alanine Aminotransferase 13 units/L (7-56); Albumin 3.4 g/dL (3.9-5); Blood Urea Nitrogen 109 mg/dL (7-17); Calcium 8.3 mg/dL (8.4-10.2); Hemolysis Index 24
[2021-08-26 16:47] LABS: BUN/Creatinine Ratio 10
[2021-08-26] MEDS ORDERED: ACETAMINOPHEN 325 MG/10.15 ML ORAL LIQD UNIT DOSE PO ONE (16:49)
[2021-08-26] MEDS ORDERED: hydrALAZINE 20 MG/1 ML INJ IV ONE (16:50)
--- NOTE | 2021-08-26 16:56 | Emergency Department Report ---
ED General Adult HPI - General Chief complaint: Dyspnea/Respdistress Stated complaint: DIALYSIS, HEAVY BREATHING PUI?: No Time Seen by Provider: 08/26/21 15:32 Source: patient, RN notes reviewed, old records reviewed Mode of arrival: Ambulatory Limitations: No Limitations - History of Present Illness Initial comments: Nephrology: Dr. Jonny Villatoro Past medical history: Hypertension, COPD, CHF, hepatitis C, tobacco smoking, cocaine use, anemia, end-stage renal disease on hemodialysis, reports last hemodialysis approximately 1 month ago, right-sided thoracic Vas-Cath, left upper extremity graft. Also reports recent diagnosis of COVID-19 approximately 1 month ago. The patient is a 56-year-old female who presents to the ER today with a primary complaint of shortness of breath. It is painless. It is present for 1 week. Worsens with physical exertion. It decreases with rest. Patient also complains of sore throat. The patient denies dysuria. The patient also endorses ecchymosis to her left upper extremity forearm, after AV graft cannulation at this hospital. She denies additional injuries and complaints. She reports she has not been dialyzed for about 4 weeks. She denies physical pain otherwise to myself. She is currently drinking orange soda. -: Gradual, days(s) Consistency: constant Improves with: rest Worsens with: movement - Related Data Home Medications Medication Instructions Recorded Confirmed Last Taken Losartan [Cozaar] 100 mg PO QDAY 05/13/21 05/13/21 Unknown Melatonin [Melatonin 10MG CAP] 10 mg PO QHS 05/13/21 05/13/21 Unknown carvediloL [Coreg] 12.5 mg PO BID 05/13/21 05/13/21 Unknown traZODone [Desyrel] 50 mg PO QHS 05/13/21 05/13/21 Unknown Previous Rx's Medication Instructions Recorded Last Taken Type AtorvaSTATin 40 mg PO DAILY #30 02/17/20 Unknown Rx Clopidogrel [Plavix] 75 mg PO QDAY #90 tablet 05/29/21 Unknown Rx HYDROcodone/APAP 5-325 [[place] 1 each PO Q4HR PRN #30 tablet 05/29/21 Unknown Rx 5/325] Allergies Allergy/AdvReac Type Severity Reaction Status Date / Time No Known Allergies Allergy Verified 05/13/21 14:53 ED Review of Systems ROS: Stated complaint: DIALYSIS, HEAVY BREATHING Other details as noted in HPI Constitutional: malaise, weakness, other (Denies loss of taste and smell). denies: fever Eyes: denies: eye discharge ENT: throat pain. denies: epistaxis Respiratory: shortness of breath. denies: cough Cardiovascular: denies: chest pain Gastrointestinal: denies: abdominal pain Genitourinary: denies: dysuria Musculoskeletal: denies: back pain Neurological: denies: weakness Hematological/Lymphatic: denies: easy bleeding ED Past Medical Hx - Past Medical History Previous Medical History?: Yes Hx Hypertension: Yes Hx Heart Attack/AMI: No Hx Congestive Heart Failure: Yes Hx Diabetes: No Hx Deep Vein Thrombosis: Yes (04/14/20 dopplerocclusion of the left profundus of the femoral vein. ) Hx Liver Disease: No Hx Renal Disease: No Hx Sickle Cell Disease: No Hx Seizures: No Hx Kidney Stones: Yes Hx Asthma: No Hx COPD: Yes Hx HIV: No Additional medical history: hep c copd - Surgical History Past Surgical History?: Yes Hx Pacemaker: No Hx Internal Defibrillator: No Additional Surgical History: kidney stones - Social History Smoking Status: Current Every Day Smoker - Medications Home Medications: Home Medications Medication Instructions Recorded Confirmed Last Taken Type AtorvaSTATin 40 mg PO DAILY #30 02/17/20 05/13/21 Unknown Rx Losartan [Cozaar] 100 mg PO QDAY 05/13/21 05/13/21 Unknown History Melatonin [Melatonin 10MG CAP] 10 mg PO QHS 05/13/21 05/13/21 Unknown History carvediloL [Coreg] 12.5 mg PO BID 05/13/21 05/13/21 Unknown History traZODone [Desyrel] 50 mg PO QHS 05/13/21 05/13/21 Unknown History Clopidogrel [Plavix] 75 mg PO QDAY #90 tablet 05/29/21 Unknown Rx HYDROcodone/APAP 5-325 [[place] 1 each PO Q4HR PRN #30 tablet 05/29/21 Unknown Rx 5/325] ED Physical Exam - General Limitations: No Limitations General appearance: alert, in no apparent distress - Head Head exam: Present: atraumatic, normocephalic - Eye Eye exam: Present: normal appearance, EOMI. Absent: nystagmus - ENT ENT exam: Present: normal exam, normal orophraynx, mucous membranes moist, norm al external ear exam, other (The patient has poor dentition/is edentulous. The uvula is midline. There were no pharyngeal exudates.) - Neck Neck exam: Present: normal inspection, full ROM. Absent: tenderness, meningismus - Respiratory Respiratory exam: Present: respiratory distress, rales. Absent: stridor - Cardiovascular Cardiovascular Exam: Present: regular rate, normal rhythm, normal heart sounds. Absent: bradycardia, tachycardia, irregular rhythm, systolic murmur, diastolic murmur, rubs, gallop - GI/Abdominal GI/Abdominal exam: Present: soft. Absent: distended, tenderness, guarding, rebound, rigid, pulsatile mass - Extremities Exam Extremities exam: Present: normal inspection (Left upper extremity graft is appreciated. There is no redness, pus or streaking.There is a left posterior f orearm ecchymosis noted.), full ROM, pedal edema (1+ edema in the bilateral lower extremities), other (2+ pulses noted in the bilateral upper and lower extremities. There is no palpable cord. negative Homans sign. Muscular compartments are soft. The pelvis is stable.). Absent: calf tenderness - Back Exam Back exam: Present: normal inspection. Absent: tenderness, CVA tenderness (R), CVA tenderness (L), paraspinal tenderness, vertebral tenderness - Neurological Exam Neurological exam: Present: alert, oriented X3, normal gait, other (No facial droop. Tongue midline. Extraocular movements intact bilaterally. Facial sensation intact to light touch in V1, V2, V3 distribution bilaterally. 5 and a 5 strength in 4 extremities. Sensation intact to light touch in 4 extremities.). Absent: motor sensory deficit - Psychiatric Psychiatric exam: Present: normal affect, normal mood - Skin Skin exam: Present: warm, ecchymosis ED Course Vital Signs 08/26/21 15:11 Temperature 98.1 F Pulse Rate 82 Respiratory 20 Rate Blood Pressure 185/102 O2 Sat by Pulse 92 Oximetry ED Medical Decision Making - Lab Data Result diagrams: 08/26/21 15:51 08/26/21 15:51 Vital Signs 08/26/21 15:11 Temperature 98.1 F Pulse Rate 82 Respiratory 20 Rate Blood Pressure 185/102 O2 Sat by Pulse 92 Oximetry Lab Results 08/26/21 08/26/21 Range/Units 15:51 15:51 WBC 3.8 L (4.5-11.0) K/mm3 RBC 3.08 L (3.65-5.03) M/mm3 Hgb 9.2 L (10.1-14.3) gm/dl Hct 28.2 L (30.3-42.9) % MCV 92 (79-97) fl MCH 30 (28-32) pg MCHC 33 (30-34) % RDW 16.0 H (13.2-15.2) % Plt Count 151 (140-440) K/mm3 Sodium 139 (137-145) mmol/L Potassium 5.0 (3.6-5.0) mmol/L Chloride 108.3 H (98-107) mmol/L Carbon Dioxide 10 L (22-30) mmol/L Anion Gap 26 mmol/L BUN 109 H (7-17) mg/dL Creatinine 11.1 H (0.6-1.2) mg/dL Estimated GFR 4 ml/min BUN/Creatinine Ratio 10 % Glucose 131 H (65-100) mg/dL Calcium 8.3 L (8.4-10.2) mg/dL Phosphorus 8.10 H (2.5-4.5) mg/dL Magnesium 2.10 (1.7-2.3) mg/dL Total Bilirubin 0.30 (0.1-1.2) mg/dL AST 14 (5-40) units/L ALT 13 (7-56) units/L Alkaline Phosphatase 179 H (35-129) units/L Total Protein 6.5 (6.3-8.2) g/dL Albumin 3.4 L (3.9-5) g/dL Albumin/Globulin Ratio 1.1 % - EKG Data -: EKG Interpreted by Or EKG shows normal: sinus rhythm Rate: normal - EKG Data 08/26/21 17:21 The EKG is interpreted at 17: 15 Sinus rhythm, 80 bpm. Left axis deviation, left anterior fascicular block. Left ventricular hypertrophy. QTC 442 ms. OR interval 173 ms. Abnormal EKG. Not a STEMI. - Radiology Data Radiology results: pending, report reviewed, image reviewed CHEST 2 VIEWS INDICATION / CLINICAL INFORMATION: sob. COMPARISON: 08/09/2021 FINDINGS: SUPPORT DEVICES: Stable, satisfactory device positioning. HEART / MEDIASTINUM: Stable cardiomegaly LUNGS / PLEURA: Small left pleural effusion. Bilateral interstitial edema. No pneumothorax. ADDITIONAL FINDINGS: No significant additional findings. IMPRESSION: 1. Cardiomegaly with bilateral interstitial edema and left pleural effusion. Signer Name: Zain Loyd MD Signed: 08/26/2021 3:03 PM Workstation Name: [place] - Medical Decision Making Differential diagnosis, including but not limited to: Azotemia, uremia, anemia of chronic disease, metabolic acidosis, fluid overload, congestive heart failure, end-stage renal disease requiring hemodialysis Assessment and plan: 56-year-old female, who is tachypneic, with crackles and rales, hypoxia, hypertensive, but awake, alert, oriented with a GCS of 15, prote cting her airway, ambulating with a steady gait, with azotemia, uremia, metabolic acidosis, potassium of 5.0, x-ray the chest suggesting pulmonary vascular congestion. Contacted her private director of enterprise strategy, Dr. Jonny Ann I discussed the patient's history, physical, laboratory studies and imaging studies. He will arrange for emergent hemodialysis. Hospital physician, Dr. Escoto, to admit patient to the medical service. Patient protecting her airway. Her pharyngeal examination is unremarkable. T ylenol for pharyngeal pain. Supplemental oxygen for hypoxia. Patient urinating in the bathroom. Hydralazine for hypertension. Discussed plan of care with the patient. She is agreeable to the plan of care for Critical Care Time: Yes Critical care time in (mins) excluding proc time.: 35 Critical care attestation.: If time is entered above; I have spent that time in minutes in the direct care of this critically ill patient, excluding procedure time. ED Disposition Clinical Impression: End stage renal disease on dialysis, Fluid overload, Hypoxia, Anemia Disposition: ADMITTED INPATIENT Is pt being admited?: Yes Does the pt Need Aspirin: No Condition: Good
--- NOTE | 2021-08-26 17:50 | History and Physical Report ---
History of Present Illness Chief complaint: I think you need dialysis History of present illness: 56 YO Female with ESRD on HD last dialyzed 1 month ago, COPD, CHF, HTN, Nicotine Dependence, Cocaine Dependence, DVT not currently prescribed therapeutic anticoagulation presents ED for evaluation. Patient reports "I think I need dialysis". Patient states that she has experienced shortness of breath over the past 1 week with persistent and worsening symptoms over the same timeframe. Patient states that she was last dialyzed 1 month ago. Patient transported to [facility] via private vehicle for further care and evaluation of the aforementioned symptoms. The patient was seen and evaluated in the emergency department. All lab and imaging studies reviewed. Patient found to have end-stage renal disease complicated by fluid overload secondary to missed dialysis. Nephrology team consulted in ED for urgent dialysis. Patient denies fever, chills, chest pain, palpitation, productive cough, skin rash, recent ill contacts. Prior admission on 08/09/2021 reviewed. All medication listed at time of admission has been reconciled. Advanced care planning conducted in ED. Past History Past Medical History: COPD, ESRD, heart failure, hypertension Past Surgical History: Other (Dialysis access) Social history: single, smoking Family history: hypertension Medications and Allergies Allergies Allergy/AdvReac Type Severity Reaction Status Date / Time No Known Allergies Allergy Verified 05/13/21 14:53 Home Medications Medication Instructions Recorded Confirmed Last Taken Type AtorvaSTATin 40 mg PO DAILY #30 02/17/20 05/13/21 Unknown Rx Losartan [Cozaar] 100 mg PO QDAY 05/13/21 05/13/21 Unknown History Melatonin [Melatonin 10MG CAP] 10 mg PO QHS 05/13/21 05/13/21 Unknown History carvediloL [Coreg] 12.5 mg PO BID 05/13/21 05/13/21 Unknown History traZODone [Desyrel] 50 mg PO QHS 05/13/21 05/13/21 Unknown History Clopidogrel [Plavix] 75 mg PO QDAY #90 tablet 05/29/21 Unknown Rx HYDROcodone/APAP 5-325 [[place] 1 each PO Q4HR PRN #30 tablet 05/29/21 Unknown Rx 5/325] Review of Systems Constitutional: no weight loss, no weight gain, no fever Ears, nose, mouth and throat: no ear pain, no decreased hearing, no nose pain, no nasal discharge Breasts: no change in shape, no mass Cardiovascular: no chest pain, no orthopnea, no palpitations Respiratory: shortness of breath Gastrointestinal: no abdominal pain, no nausea, no diarrhea, no constipation Genitourinary Female: no pelvic pain, no flank pain, no dysuria, no urinary frequency, no urgency Rectal: no pain, no incontinence, no bleeding Musculoskeletal: no neck stiffness, no shooting arm pain, no arm numbness/tingling, no low back pain, no shooting leg pain Integumentary: no rash, no redness, no sores, no wounds, no jaundice, no boils Neurological: no head injury, no paralysis, no weakness, no tingling Psychiatric: no anxiety, no change in sleep habits, no sleep disturbances, no change in appetite, no change in libido, no suicidal ideation Endocrine: no cold intolerance, no polyphagia, no excessive thirst, no polyuria, no nocturia, no excessive sweating Hematologic/Lymphatic: no easy bruising, no easy bleeding, no lymphadenopathy, no lymphedema Allergic/Immunologic: no urticaria, no allergic rhinitis, no angioedema Exam - Constitutional Vitals: Temp Pulse Resp BP Pulse Ox 98.1 F 82 20 185/102 92 08/26/21 15:11 08/26/21 15:11 08/26/21 15:11 08/26/21 15:11 08/26/21 15:11 General appearance: Present: mild distress - EENT Eyes: Present: PERRL ENT: hearing intact, clear oral mucosa - Neck Neck: Present: supple, normal ROM - Respiratory Respiratory effort: normal Respiratory: bilateral: diminished, rhonchi - Cardiovascular Heart Sounds: Present: S1 & S2. Absent: rub, click - Extremities Extremities: pulses symmetrical, No edema Peripheral Pulses: within normal limits - Abdominal General gastrointestinal: Present: soft, non-tender, non-distended, normal bowel sounds Female genitourinary: Present: normal - Integumentary Integumentary: Present: clear, warm, dry - Musculoskeletal Musculoskeletal: gait normal, strength equal bilaterally - Psychiatric Psychiatric: appropriate mood/affect, intact judgment & insight - Neurologic Neurologic: CNII-XII intact, moves all extremities Results - Labs CBC & Chem 7: 08/26/21 15:51 08/26/21 15:51 Labs: Abnormal lab results 08/26/21 08/26/21 Range/Units 15:51 15:51 WBC 3.8 L (4.5-11.0) K/mm3 RBC 3.08 L (3.65-5.03) M/mm3 Hgb 9.2 L (10.1-14.3) gm/dl Hct 28.2 L (30.3-42.9) % RDW 16.0 H (13.2-15.2) % Chloride 108.3 H (98-107) mmol/L Carbon Dioxide 10 L (22-30) mmol/L BUN 109 H (7-17) mg/dL Creatinine 11.1 H (0.6-1.2) mg/dL Glucose 131 H (65-100) mg/dL Calcium 8.3 L (8.4-10.2) mg/dL Phosphorus 8.10 H (2.5-4.5) mg/dL Alkaline Phosphatase 179 H (35-129) units/L NT-Pro-B Natriuret Pep > 12679 H (0-900) pg/mL Albumin 3.4 L (3.9-5) g/dL Assessment and Plan - Patient Problems (1) End stage renal disease on dialysis Current Visit: No Status: Acute Plan to address problem: Nephrology team consulted, dialysis as per renal team, no EKG changes, strict I's/O, monitor fluid balance, avoid nephrotoxic agents. (2) Fluid overload Current Visit: Yes Status: Acute Qualifiers: Hypervolemia type: unspecified Qualified Code(s): E87.70 - Fluid overload, unspecified Plan to address problem: Monitor fluid balance, dialysis as per renal team. (3) CHF (congestive heart failure) Current Visit: Yes Status: Acute Qualifiers: Heart failure chronicity: chronic Plan to address problem: Strict I/O, monitor urine output every shift, afterload reduction, blood pressure control, the urgent dialysis. Continue medical management. Currently compensated without acute exacerbation. (4) DVT prophylaxis Current Visit: Yes Status: Acute Plan to address problem: SCD to bilateral lower extremities while in bed, patient is ambulatory (5) Advance care planning Current Visit: Yes Status: Acute Plan to address problem: Disease education conducted, care plan discussed, diagnoses discussed, patient is full code, patient counseled regarding compliance with outpatient dialysis. Patient knowledges understanding agree with care plan, +30 minutes.
[2021-08-26] MEDS ORDERED: ACETAMINOPHEN 325 MG TAB PO PRN (17:52)
[2021-08-26] MEDS ORDERED: ALBUTEROL 2.5 MG/3 ML NEBU IH PRN (17:52)
[2021-08-26] MEDS ORDERED: HYDROmorphone 1 MG/1 ML INJ IV PRN (17:52)
[2021-08-26] MEDS ORDERED: oxyCODONE /ACETAMINOPHEN 5-325MG TAB PO PRN (17:52)
[2021-08-26] MEDS ORDERED: ONDANSETRON 4 MG/2 ML INJ IV PRN (17:52)
[2021-08-26] MEDS ORDERED: SODIUM CHLORIDE 0.9% 100 ML IV PRN (18:13)
--- NOTE | 2021-08-26 19:38 | Event Note ---
Date: 08/26/21 Patient with h/o ESRD presented with sob/resp distress, volume overload and HAGMA. Patient need urgent hemodialysis. Full consult to follow.
[2021-08-26] MEDS ORDERED: MELATONIN 5 MG TAB PO SCH (22:00)
[2021-08-26] MEDS ORDERED: traZODone 50 MG TAB PO SCH (22:00)
[2021-08-26] MEDS ORDERED: NON-FORMULARY EACH (Melatonin [Melatonin 10mg Cap] 10 MG Capsule) PO SCH (22:00)
[2021-08-26] MEDS: carvediloL 6.25 MG TAB PO SCH (22:31)
[2021-08-27 06:02] LABS: Hematocrit 26.9 % (30.3-42.9); Hemoglobin 9.1 gm/dl (10.1-14.3)
[2021-08-27] MEDS ORDERED: guaiFENesin/CODEINE 100-10MG ORAL LIQD 5 ML PO ONE (06:51)
--- NOTE | 2021-08-27 08:19 | Consultation ---
History of Present Illness - Reason for Consult Consult date: 08/27/21 end stage renal disease, hyperkalemia, metabolic acidosis - History of Present Illness Patient is a 56 female known to our service with pmh significant for HTN, COPD, CHF, Hepatitis C, Tobacco smoking, Cocaine use, Anemia, ESRD and Medical non- compliance who presented to [facility] ED 08/26 with complaint of shortness of breathan d not having dialysis in about 2 weeks. She reportss some orthopnea. She denies any N, V, D, abd pain, cp, headache, dizziness, cough, abdominal pain, fever or chills. She didn't show up for hemodialysis for more than a month and was discharged from the outpatient dialysis clinic. The last hemodialysis treatment was at this facility on 08/09. Of note patient has left ED/facilities/hospitals multiple times AGAINST MEDICAL ADVICE. Initial BP was 185/102. Chest x-ray showed cardiomegaly, b/l interstitial edema and L pleural fluid. Labs significant for Creat 11.1, BUN 109, K 5 and bicarb 10. Nephrology was consulted for ESRD management. Past History Past Medical History: COPD, dialysis, ESRD, heart failure, hypertension Past Surgical History: Other (Dialysis access) Social history: single, smoking Family history: hypertension Medications and Allergies Allergies Allergy/AdvReac Type Severity Reaction Status Date / Time No Known Allergies Allergy Verified 05/13/21 14:53 Home Medications Medication Instructions Recorded Confirmed Last Taken Type AtorvaSTATin 40 mg PO DAILY #30 02/17/20 05/13/21 Unknown Rx Losartan [Cozaar] 100 mg PO QDAY 05/13/21 05/13/21 Unknown History Melatonin [Melatonin 10MG CAP] 10 mg PO QHS 05/13/21 05/13/21 Unknown History carvediloL [Coreg] 12.5 mg PO BID 05/13/21 05/13/21 Unknown History traZODone [Desyrel] 50 mg PO QHS 05/13/21 05/13/21 Unknown History Clopidogrel [Plavix] 75 mg PO QDAY #90 tablet 05/29/21 Unknown Rx HYDROcodone/APAP 5-325 [[place] 1 each PO Q4HR PRN #30 tablet 05/29/21 Unknown Rx 5/325] Active Meds: Active Medications Acetaminophen (Acetaminophen 325 Mg Tab) 650 mg PO Q4H PRN PRN Reason: Pain MILD(1-3)/Fever >100.5/[place] Albuterol (Albuterol 2.5 Mg/3 Ml Nebu) 2.5 mg IH Q4HRT PRN PRN Reason: Shortness Of Breath Atorvastatin Calcium (Atorvastatin 40 Mg Tab) 40 mg PO QDAY [facility] Carvedilol (Carvedilol 6.25 Mg Tab) 12.5 mg PO BID [facility] Last Admin: 08/26/21 22:31 Dose: 12.5 mg Documented by: Clopidogrel Bisulfate (Clopidogrel 75 Mg Tab) 75 mg PO QDAY [facility] Hydromorphone HCl (Hydromorphone 1 Mg/1 Ml Inj) 0.5 mg IV Q23H PRN PRN Reason: Pain , Severe (7-10) Sodium Chloride (Nacl 0.9%) 100 mls @ 999 mls/hr IV VICKI PRN PRN Reason: Hypotension Losartan Potassium (Losartan 50 Mg Tab) 100 mg PO QDAY [facility] Melatonin (Melatonin 5 Mg Tab) 10 mg PO QHS [facility] Last Admin: 08/26/21 22:32 Dose: 10 mg Documented by: Ondansetron HCl (Ondansetron 4 Mg/2 Ml Inj) 4 mg IV Q8H PRN PRN Reason: Nausea And Vomiting Oxycodone/Acetaminophen (Oxycodone /Acetaminophen 5-325mg Tab) 1 tab PO Q16H PRN PRN Reason: Pain, Moderate (4-6) Last Admin: 08/26/21 22:32 Dose: 1 tab Documented by: Sodium Chloride (Sodium Chloride 0.9% 10 Ml Flush Syringe) 10 ml IV BID [facility] Last Admin: 08/26/21 22:32 Dose: 10 ml Documented by: Sodium Chloride (Sodium Chloride 0.9% 10 Ml Flush Syringe) 10 ml IV PRN PRN PRN Reason: LINE FLUSH Trazodone HCl (Trazodone 50 Mg Tab) 50 mg PO QHS [facility] Last Admin: 08/26/21 22:31 Dose: 50 mg Documented by: Review of Systems All systems: negative Exam - Vital Signs Vital signs: Vital Signs Temp Pulse Resp BP Pulse Ox 98.1 F 82 20 185/102 92 08/26/21 15:11 08/26/21 15:11 08/26/21 15:11 08/26/21 15:11 08/26/21 15:11 Results - Lab Results 08/27/21 04:58 08/27/21 04:58 Most recent lab results Calcium 8.0 mg/dL (8.4-10.2) L 08/27/21 04:58 Phosphorus 6.40 mg/dL (2.5-4.5) H D 08/27/21 04:58 Magnesium 2.10 mg/dL (1.7-2.3) 08/26/21 15:51 Assessment and Plan 1. ESRD: Patient is currently not established with any dialysis unit. She was discharged from local dialysis clinic due to significant non-compliance. Last dialysis on 08/09. Hemodialysis: 08/26. HD today. 2. FEN: Anion-gap metabolic acidosis, s/p HD. Monitor lytes and volume status. 3. Anemia: Epogen with HD as needed. 4.Uncontrolled Hypertension: Resume home meds. MonitorBP. 5.H/o chronic combined systolic and diastolicCHF. 6. H/o Cocaine abuse. 7.Medical non-compliance: Counseled. Subjective: Patient was seen and examined at the bedside. Examination: General appearance: well-developed, well-nourished, appears stated age, not in distress HEENT: ATNC, pupils equal Neck: trachea midline Respiratory: Clear to Auscultation Cardiology: regular, S1S2, no murmur Gastrointestinal: normoactive bowel sounds, not tender Integumentary: no rash, warm and dry Neurologic: AO, non-focal Ext: no edema Hemodialysis access: R IJ tunnel catheter, L arm AVG
[2021-08-27] MEDS: carvediloL 6.25 MG TAB PO SCH (09:39)
[2021-08-27] MEDS ORDERED: NON-FORMULARY EACH (Atorvastatin 40 MG) PO SCH (10:00)
[2021-08-27] MEDS ORDERED: CLOPIDOGREL 75 MG TAB PO SCH (10:00)
[2021-08-27] MEDS ORDERED: LOSARTAN 50 MG TAB PO SCH (10:00)
[2021-08-27] MEDS ORDERED: NON-FORMULARY EACH (Losartan [Cozaar] 100 MG Tablet) PO SCH (10:00)
--- NOTE | 2021-08-27 11:22 | Electrocardiograph Report ---
[facility] Test Date: 2021-08-26 Test Time: 17:15:20 Pat Name: HILDA CARBALLO Department: Room: [place] [address] Gender: F Wireless Sales Expert: CHAD : 1965 Requested By: PERRY RUEDA Order Number: [id number] Reading MD: Timoteo Balderrama Measurements Intervals [place] Rate: 80 P: 58 NV: 173 QRS: -10 QRSD: 105 T: 131 QT: 392 QTc: 452 Interpretive Statements Sinus rhythm Probable left atrial enlargement LVH with secondary repolarization abnormality No previous ECG available for comparison Electronically Signed On 08-27-2021 11:21:56 EST by Timoteo Balderrama
[2021-08-27] MEDS ORDERED: EPOETIN ALFA-EPBX 10,000 UNIT/1 ML VIAL SUB-Q PRN (11:30)
[2021-08-27] MEDS ORDERED: HEPARIN 10,000 UNITS/10 ML VIAL IV PRN (11:30)
--- NOTE | 2021-08-27 16:11 | Discharge Summary ---
Providers - Providers Date of Admission: 08/26/21 17:52 Attending physician: RAJNI RAMIREZ 08/26/21 16:47 Consult to Physician [CONS] Urgent Comment: Consulting Provider: RENE PATEL Physician Instructions: Reason For Exam: esrd Primary care physician: SHORTY MYERS MD Hospitalization Condition: Good - Discharge Diagnoses (1) End stage renal disease on dialysis Status: Inactive (2) Fluid overload Status: Acute Qualifiers: Hypervolemia type: unspecified Qualified Code(s): E87.70 - Fluid overload, unspecified (3) CHF (congestive heart failure) Status: Acute Qualifiers: Heart failure chronicity: chronic (4) DVT prophylaxis Status: Acute (5) Advance care planning Status: Acute Exam - Constitutional Vitals: Temp Pulse Resp BP Pulse Ox 98.3 F 72 14 149/84 98 08/27/21 02:58 08/27/21 09:39 08/27/21 07:30 08/27/21 09:39 08/27/21 07:41 Plan Follow up with: SHORTY YMERS MD [Primary Care Provider] - 7 Days
[2021-08-27 17:57] VITALS: BP 140/82
== END 2021-08-27 18:15 | disposition left against medical advice (07) ==
LOC: ED 15:05 → 3A 17:52
PROVIDERS: ADMIT Internal Medicine; ATTEND Internal Medicine
DX: E87.70 Fluid overload, unspecified (principal); I13.2 Hypertensive heart and chronic kidney disease with heart failure and with stage 5 chronic kidney disease, or end stage renal disease; I50.42 Chronic combined systolic (congestive) and diastolic (congestive) heart failure; N18.6 End stage renal disease; D63.1 Anemia in chronic kidney disease; J44.9 Chronic obstructive pulmonary disease, unspecified; F14.10 Cocaine abuse, uncomplicated; F17.210 Nicotine dependence, cigarettes, uncomplicated; R09.02 Hypoxemia; Z99.2 Dependence on renal dialysis; Z87.442 Personal history of urinary calculi; Z86.19 Personal history of other infectious and parasitic diseases; Z91.14 Patient's other noncompliance with medication regimen
CPT/HCPCS: 36415; 71046; 80048; 80053; 83735; 83880; 84100; 85014; 85018; 85027; 93005; 99291; A9270; G0257; G0378